=== PATIENT | female | born 1975 | race Caucasian/White ===

== ENCOUNTER 2021-05-23 15:44 | Outpatient (REF) | payer OTHER, SELFPAY ==
--- NOTE | ~2021-05-23 | XR_ITS ---
EXAMINATION: XR TIBIA AND FIBULA, RIGHT CLINICAL INFORMATION: Pain in right lower leg. COMPARISON: None. TECHNIQUE: AP and lateral views of the right tibia and fibula were obtained. FINDINGS: The bones and soft tissues are normal. No fracture. No osseous lesions. XR/XR tibia fibula RT 2V IMPRESSION: Normal right tibia and fibula.
== END 2021-05-23 15:45 | disposition home or self-care (01) ==
LOC: HO.XRAY 15:44
PROVIDERS: Absent Provider Internal Medicine Geriatric Medicine; PCP Internal Medicine Geriatric Medicine; Visit Provider Internal Medicine
DX: M79.661 Pain in right lower leg (principal)
CPT/HCPCS: 73590

== ENCOUNTER → 2021-12-26 13:28 | Outpatient (BNVA) | payer OTHER, SELFPAY | PROVIDERS: PCP Internal Medicine Geriatric Medicine; Visit Provider Nurse Practitioner Family | DX: M53.3 Sacrococcygeal disorders, not elsewhere classified (principal); M54.16 Radiculopathy, lumbar region; M62.830 Muscle spasm of back; M47.816 Spondylosis without myelopathy or radiculopathy, lumbar region; R29.898 Other symptoms and signs involving the musculoskeletal system; Q76.0 Spina bifida occulta; Z79.1 Long term (current) use of non-steroidal anti-inflammatories (NSAID) | CPT/HCPCS: 99212 ==

== ENCOUNTER 2022-01-11 19:25 | Outpatient (REF) | payer OTHER, SELFPAY ==
--- NOTE | ~2022-01-11 | MR_ITS ---
EXAMINATION: MR LUMBAR SPINE WITHOUT AND WITH CONTRAST CLINICAL INFORMATION: Spondylosis. Left lower extremity radiculopathy. Low back pain. Weakness. COMPARISON: None TECHNIQUE: MRI of the lumbar spine was obtained using routine sequences with and without contrast. Intravenous contrast: Gadavist 9 mL. FINDINGS: There are post laminectomy changes at the L4 through the L5 levels which may be due to prior untethering of the abnormal low-lying cord, as a thickened fatty filum is visible within the distal aspect of the thecal sac at the S2 level. 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 The cord is abnormally low-lying. There is a small syrinx measuring under 0.2 cm in transverse diameter which measures approximately 1 cm craniocaudal at the lower L1 level. 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 The conus tip terminates at the dorsal L4 level to the left of midline along the dorsal aspect of the thecal sac. The cauda equina nerve roots are unremarkable. There is no pathologic intradural enhancement on postcontrast imaging. No paraspinal soft tissue fluid collections are seen. The L1-L2, L2-L3, L3-L4, and L4-L5 discs are fairly well-hydrated. No focal disc protrusion or central canal stenosis is evident at these levels. There is a very mild retrosubluxation at the L4-L5 level. At the L5-S1 level, there is a grade 2 anterolisthesis with severe disc space narrowing and disc desiccation with chronic endplate changes. Unroofed bulging disc present without a focal protrusion. The foramina are widely patent. No central canal stenosis. MR/MR lumbar spine wo/w con IMPRESSION: Chronic postoperative changes which may be due to prior untethering of the cord due to a thickened fatty filum partially visualized at the lower sacral levels. Abnormal low-lying conus tip terminating along the dorsal margin of the thecal sac at the L4 level to the left of midline. 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 Small syrinx within the cord at the L1 level. Moderate chronic spondylosis and grade 2 anterolisthesis at the L5-S1 level without central canal stenosis or foraminal narrowing.
== END 2022-01-11 19:26 | disposition home or self-care (01) ==
LOC: HO.MRI 19:25
PROVIDERS: Visit Provider Nurse Practitioner Family
DX: M47.816 Spondylosis without myelopathy or radiculopathy, lumbar region (principal)
CPT/HCPCS: 72158; A9585

== ENCOUNTER → 2022-01-16 16:11 | Outpatient (BNVA) | payer OTHER, SELFPAY | PROVIDERS: PCP Internal Medicine Geriatric Medicine; Visit Provider Nurse Practitioner Family | DX: M47.816 Spondylosis without myelopathy or radiculopathy, lumbar region (principal); M62.830 Muscle spasm of back; M54.16 Radiculopathy, lumbar region | CPT/HCPCS: 99212 ==

== ENCOUNTER → 2022-02-10 11:33 | Outpatient (BNVA) | payer OTHER, SELFPAY | PROVIDERS: PCP Internal Medicine Geriatric Medicine; Visit Provider Nurse Practitioner Family | DX: M43.17 Spondylolisthesis, lumbosacral region (principal); Q76.0 Spina bifida occulta; Q06.8 Other specified congenital malformations of spinal cord; M54.16 Radiculopathy, lumbar region; R29.898 Other symptoms and signs involving the musculoskeletal system | CPT/HCPCS: Q3014 ==

== ENCOUNTER → 2022-02-28 09:00 | Outpatient (BNVA) | payer OTHER, SELFPAY | PROVIDERS: PCP Internal Medicine Geriatric Medicine; Visit Provider Nurse Practitioner Family | DX: Z13.89 Encounter for screening for other disorder (principal) | CPT/HCPCS: Q3014 ==

== ENCOUNTER 2022-03-02 10:14 | Outpatient (REF) | payer OTHER, SELFPAY ==
[2022-03-02 10:26] LABS: MANUAL DIFF FLAG NO
[2022-03-02 11:16] LABS: Basophils Absolute Auto 0.1 X10*3/uL (0.0-0.2); Basophils Percent Auto 0.7 % (0-2); Eosinophils Absolute Auto 0.2 X10*3/uL (0.0-0.4); Eosinophils Percent Auto 3.3 % (0-4); Hemoglobin 13.7 g/dl (12.0-16.0); Imm Gran Abs Auto 0.01 X10*3/uL (0.00-0.03); Imm Gran Pct Auto 0.1 % (0.0-0.4); Lymphocytes Absolute Auto 1.9 X10*3/uL (1.2-4.9); Mean Corpuscular HGB Conc 32.6 g/dl (31.0-35.0); Mean Corpuscular Hemoglobin 31.4 pg (27.0-33.0); Mean Corpuscular Volume 96.1 fL (80.0-98.0); Mean Platelet Volume 11.5 fL (9.4-12.3); Monocytes Absolute Auto 0.5 X10*3/uL (0.1-1.2); Monocytes Percent Auto 7.8 % (2-11); Neutrophils Percent Auto 59.1 % (45-73); Platelet Count 244 X10*3/uL (160-400); Red Blood Count 4.37 X10*6/uL (4.20-5.50); Red Cell Distribution Width 13.2 % (11.0-16.0); White Blood Count 6.7 X10*3/uL (4.8-10.8)
[2022-03-02 11:57] LABS: Alanine Aminotransferase 13 U/L (0-31); Albumin Level 3.9 g/dL (3.5-5.0); Alkaline Phosphatase 63 U/L (39-117); Anion Gap 13 (12-20); Aspartate Amino Transferase 15 U/L (5-31); Bilirubin Total 1.2 mg/dL (0.0-1.0); Blood Urea Nitrogen 14 mg/dL (9-16); Calcium 9.1 mg/dL (8.4-10.2); Carbon Dioxide 25 mmol/L (22-29); Chloride 106 mmol/L (96-108); Estimated Glomerular Filt Rate > 60; Glucose Random 83 mg/dL (60-115); Potassium 4.6 mmol/L (3.3-5.1); Sodium 139 mmol/L (135-145); Total Protein 6.7 g/dL (6.5-8.0)
== END 2022-03-02 10:15 | disposition home or self-care (01) ==
LOC: HO.LAB 10:14
PROVIDERS: PCP Internal Medicine Geriatric Medicine; Visit Provider Nurse Practitioner
DX: D36.9 Benign neoplasm, unspecified site (principal)
CPT/HCPCS: 36415; 80053; 85025; 99202; 99212

== ENCOUNTER → 2022-03-31 15:05 | Outpatient (BNVA) | payer OTHER, SELFPAY | PROVIDERS: PCP Internal Medicine Geriatric Medicine; Visit Provider Nurse Practitioner Family | DX: M43.17 Spondylolisthesis, lumbosacral region (principal); Q06.8 Other specified congenital malformations of spinal cord; M54.16 Radiculopathy, lumbar region; M47.816 Spondylosis without myelopathy or radiculopathy, lumbar region; Q76.0 Spina bifida occulta | CPT/HCPCS: 99212 ==

== ENCOUNTER 2022-12-14 07:44 | Day surgery (SDC) | payer OTHER, SELFPAY ==
[2022-12-08 12:04] VITALS: BMI 36.7
--- NOTE | 2022-12-13 08:37 | HO.ANESPROP2 ---
Documented by User: Tracy Choudhary NP 12/13/22 08:37 HPI - Anesthesia Eval Consult details Narrative: 47yo F for Colonoscopy PMFSH Active Problems Active Problems: All Active Problems (Updated 03/02/22 @ 10:54 by HERNANDEZ Roberto) Tubular adenoma (Acute) Spondylolisthesis of lumbosacral region (Acute) Tethered spinal cord (Acute) Preprocedural examination (Acute) NSAID long-term use (Acute) Weakness of left lower extremity (Acute) Spina bifida occulta (Acute) Sacroiliac joint dysfunction of left side (Acute) Lumbar radiculopathy (Acute) Back muscle spasm (Acute) Lumbar spondylosis (Acute) Past Medical History Medical History Chronic back pain Family history of colon cancer in father Neurogenic bladder disorder NSAID long-term use Obesity (BMI 30-39.9) Osteoarthritis of lumbar spine Spina bifida occulta Syncope Tubular adenoma Urinary incontinence Varicose vein of leg Venous insufficiency Surgical History Surgical History H/O colonoscopy History of section History of cholecystectomy History of tubal ligation Social History Social History Patient Tobacco Use Status: Never used Tobacco Are you DNR?: No Advance Directives: No Advance Directives Information Provided: Yes Recently lost weight without trying: No Nutrition Risks: No Nutritional Risk Patient : No Meds Allergies Allergy/AdvReac Type Severity Reaction Status Date / Time oxycodone [OXYCODONE] Allergy Severe CP/DIZZINES Verified 03/31/22 15:16 S/VOMITING Home Medications Medication Instructions Recorded Confirmed Last Taken Type cholecalciferol (vitamin D3) 50 50 mcg PO DAILY 12/26/21 12/11/22 History mcg (2,000 unit) tablet Exam Exam Date and Time: December 13, 2022 0837 Height,Weight and Vital Signs: Height 5 ft Weight 85.275 kg Assessment and Plan Assessment Anesthesia Assessment: Chart Reviewed Documented by User: Chrissy Grove MD 12/14/22 09:49 [facility] Past Medical History Medical History Chronic back pain Family history of colon cancer in father Neurogenic bladder disorder NSAID long-term use Obesity (BMI 30-39.9) Osteoarthritis of lumbar spine Spina bifida occulta Syncope Tubular adenoma Urinary incontinence Varicose vein of leg Venous insufficiency Family History Family history of problems with anesthesia: No Surgical History Surgical History H/O colonoscopy History of section History of cholecystectomy History of tubal ligation History of Problems with Anesthesia: No Social History Social History Patient Tobacco Use Status: Never used Tobacco Are you DNR?: No Advance Directives: No Advance Directives Information Provided: Yes Recently lost weight without trying: No Nutrition Risks: No Nutritional Risk Patient : No Meds Allergies Allergy/AdvReac Type Severity Reaction Status Date / Time oxycodone [OXYCODONE] Allergy Severe CP/DIZZINES Verified 03/31/22 15:16 S/VOMITING Home Medications Medication Instructions Recorded Confirmed Last Taken Type cholecalciferol (vitamin D3) 50 50 mcg PO DAILY 12/26/21 12/11/22 History mcg (2,000 unit) tablet Exam Airway Mallampati Class: II TM Dist: >3cm Neck ROM: Full Assessment and Plan Assessment Anesthesia Assessment: Anesthesia Plan Discussed Final Anesthetic Review Family History of Problems with Anesthesia: No History of Problems with Anesthesia: No NPO: Yes ASA Class: II Final Preanesthetic Review: No Changes in Pt Med Stat, Meds/Allgs Chart Reviewed, Consent Obtained/Reviewed and Anes Risks/Benef Reviewed Patient Risk: Low Procedure Risk: Low Anesthetic Plan Anesthetic Plan: MAC: Disposition: Standard PACU
[2022-12-14 07:58] VITALS: BP 133/81; PULSE 61; RESP 20; TEMP 36.6; O2SAT 100
--- NOTE | 2022-12-14 08:16 | MHC.SHP ---
Pre-Procedural Eval Section A Date of Service: 12/14/22 Section B Chief Complaint: Personal hx of polyps Details of Present Illness: Chronic back pain Family history of colon cancer in father Neurogenic bladder disorder NSAID long-term use Obesity (BMI 30-39.9) Osteoarthritis of lumbar spine Spina bifida occulta Syncope Tubular adenoma Urinary incontinence Varicose vein of leg Venous insufficiency Surgical History H/O colonoscopy History of section History of cholecystectomy History of tubal ligation Relevant Family History (Specify if Yes): No Relevant Social History: None Present Medications: see Short Stay Collaborative assessment Allergies: Allergies Allergy/AdvReac Type Severity Reaction Status Date / Time oxycodone [OXYCODONE] Allergy Severe CP/DIZZINES Verified 03/31/22 15:16 S/VOMITING acetaminophen [Percocet] Allergy Unknown Unknown Verified 03/31/22 15:16 Pt states no food allergies Allergy Unknown Unknown Uncoded 03/02/22 09:52 Review of Systems Review of Systems Comment: Ten point ROS negative Exam Exam Comment: Gen appear: No acute distress HEENT: no icterus Chest: No overt resp distress Abd: soft, nontender, nondistended Psych: Stable affect, answering questions appropriately Neuro: A/Ox3 noted to move all extremities spontaneously Ext: no peripheral edema Plan Diagnosis/Plan: Unchanged I have reviewed the history and physical and performed a pertinent physical examination on my patient. No changes have occurred unless specified. Time Spent With Patient Time: Total time managing care of this patient today ____ minutes.
[2022-12-14] MEDS: Lactated Ringers 1,000 ML 100 ML IVCONT (08:19)
--- NOTE | 2022-12-14 08:24 | P.OP_ITS ---
Operative Note Operative Note Date of Service: 12/14/22 Narrative: Procedure: Colonoscopy Indication: Personal history of polyps Endoscopist: Cassy Benz MD Anesthesia Provider: Dr Chrissy Grove Anesthesia type: MAC Instrument: Olympus [id number]-[id number] Consent: Indication, risks vs benefits, and alternatives were discussed with the patient who gave written informed consent to proceed. EKG, pulse, pulse oximetry and blood pressure were monitored throughout the procedure. Please see anesthesia flowsheet. Procedure: The patient was brought to the procedure room and placed in the left lateral decubitus position. IV medications were administered by the anesthesia provider in attendance. A digital rectal exam was performed which was normal. A distal attachment cap was affixed to the tip of the scope and the colonoscope was then inserted through the anus and advanced through the colon to the cecum at 75 cm,and terminal ileum. Ileocecal valve and appendiceal orifice were identified. Mucosa was carefully examined under high definition white light as the instrument was slowly withdrawn in a retrograde panoramic fashion. Retroflexion was performed in rectum. The procedure was not difficult. There were no immediate obvious complications. The quality of the prep was BBPS: 3+3+3 = excellent Withdrawal time 11 minutes. Limitations: No limitations. Findings: Mucosa: Normal to cecum and terminal ileum. Protruding lesions: * Medium internal hemorrhoids without stigmata of recent bleeding. Impression: 1. Normal colon and terminal ileum mucosa 2. Internal hemorrhoids Recommendations: - Repeat colonoscopy in 5 years due to hx of advanced adenoma (12 mm TA in 2019)
[2022-12-14 10:23] VITALS: BP 110/58; PULSE 70; RESP 16; TEMP 36.8; O2SAT 100
[2022-12-14 10:40] VITALS: BP 117/63; PULSE 60; RESP 18; TEMP 36.6; O2SAT 99
== END 2022-12-14 11:15 | disposition home or self-care (01) ==
PROVIDERS: PCP Internal Medicine Geriatric Medicine; Visit Provider Internal Medicine
PROC: 0DJD8ZZ Inspection of Lower Intestinal Tract, Via Natural or Artificial Opening Endoscopic (ICD-10-PCS; CPT 45378; principal; 2022-12-14 09:10)
DX: Z12.11 Encounter for screening for malignant neoplasm of colon (principal); Z86.010 Personal history of colon polyps; Z80.0 Family history of malignant neoplasm of digestive organs; K64.8 Other hemorrhoids; Q76.0 Spina bifida occulta; G89.29 Other chronic pain; M47.816 Spondylosis without myelopathy or radiculopathy, lumbar region; M54.16 Radiculopathy, lumbar region; N31.9 Neuromuscular dysfunction of bladder, unspecified; E66.9 Obesity, unspecified; Z68.36 Body mass index [BMI] 36.0-36.9, adult; Z79.1 Long term (current) use of non-steroidal anti-inflammatories (NSAID); Z79.899 Other long term (current) drug therapy; Z88.8 Allergy status to other drugs, medicaments and biological substances; Z90.49 Acquired absence of other specified parts of digestive tract; Z98.890 Other specified postprocedural states
CPT/HCPCS: G0105

== ENCOUNTER → 2022-12-28 09:56 | Outpatient (BNVA) | payer OTHER, SELFPAY | PROVIDERS: PCP Internal Medicine Geriatric Medicine; Visit Provider Nurse Practitioner | DX: D36.9 Benign neoplasm, unspecified site (principal) | CPT/HCPCS: 99212 ==

== ENCOUNTER 2023-05-23 13:17 | Outpatient (REF) | payer OTHER, SELFPAY ==
--- NOTE | ~2023-05-23 | XR_ITS ---
EXAMINATION: XR FOOT, RIGHT XR FOOT, LEFT CLINICAL INFORMATION: Bilateral heel pain COMPARISON: None available. TECHNIQUE: 3 views of each foot FINDINGS: RIGHT: No acute visible fracture or dislocation. Mild multi joint arthritic changes. Very slight enthesopathy at the Achilles tendon insertion site. Joint spaces and alignment are otherwise maintained. Soft tissues are unremarkable. LEFT: No acute visible fracture or dislocation. Mild multi joint arthritic changes. Very slight enthesopathy at the Achilles tendon insertion site. Joint spaces and alignment are otherwise maintained. Soft tissues are unremarkable. XR/XR foot RT min 3V IMPRESSION: 1. No acute visible fracture or dislocation. 2. Mild bilateral multi joint arthritic changes. 3. Very slight enthesopathy at the Achilles tendon insertion site bilaterally.
--- NOTE | ~2023-05-23 | XR_ITS ---
EXAMINATION: XR FOOT, RIGHT XR FOOT, LEFT CLINICAL INFORMATION: Bilateral heel pain COMPARISON: None available. TECHNIQUE: 3 views of each foot FINDINGS: RIGHT: No acute visible fracture or dislocation. Mild multi joint arthritic changes. Very slight enthesopathy at the Achilles tendon insertion site. Joint spaces and alignment are otherwise maintained. Soft tissues are unremarkable. LEFT: No acute visible fracture or dislocation. Mild multi joint arthritic changes. Very slight enthesopathy at the Achilles tendon insertion site. Joint spaces and alignment are otherwise maintained. Soft tissues are unremarkable. XR/XR foot LT min 3V IMPRESSION: 1. No acute visible fracture or dislocation. 2. Mild bilateral multi joint arthritic changes. 3. Very slight enthesopathy at the Achilles tendon insertion site bilaterally.
== END 2023-05-23 13:18 | disposition home or self-care (01) ==
LOC: HO.HHCX 13:17
PROVIDERS: Visit Provider Internal Medicine
DX: M79.671 Pain in right foot (principal); M79.672 Pain in left foot
CPT/HCPCS: 73630

== ENCOUNTER 2023-07-06 12:17 | Outpatient (REF) | payer OTHER, SELFPAY ==
[2023-07-06 13:12] LABS: MANUAL DIFF FLAG NO
[2023-07-06 13:20] LABS: Basophils Absolute Auto 0.1 X10*3/uL (0.0-0.2); Basophils Percent Auto 0.8 % (0-2); Eosinophils Absolute Auto 0.2 X10*3/uL (0.0-0.4); Eosinophils Percent Auto 3.5 % (0-4); Hematocrit 43.6 % (37.0-47.0); Hemoglobin 14.4 g/dl (12.0-16.0); Imm Gran Abs Auto 0.01 X10*3/uL (0.00-0.03); Imm Gran Pct Auto 0.2 % (0.0-0.4); Lymphocytes Absolute Auto 1.8 X10*3/uL (1.2-4.9); Lymphocytes Percent Auto 28.1 % (20-40); Mean Corpuscular Hemoglobin 31.7 pg (27.0-33.0); Mean Platelet Volume 11.3 fL (9.4-12.3); Monocytes Absolute Auto 0.6 X10*3/uL (0.1-1.2); Neutrophils Absolute Auto 3.6 x10*3/uL (2.0-8.3); Neutrophils Percent Auto 57.4 % (45-73); Platelet Count 243 X10*3/uL (160-400); Red Blood Count 4.54 X10*6/uL (4.20-5.50); Red Cell Distribution Width 13.5 % (11.0-16.0); White Blood Count 6.3 X10*3/uL (4.8-10.8)
[2023-07-06 14:43] LABS: Anion Gap 12 (12-20); Blood Urea Nitrogen 18 mg/dL (9-16); Calcium 9.7 mg/dL (8.4-10.2); Carbon Dioxide 27 mmol/L (22-29); Chloride 107 mmol/L (96-108); Estimated Glomerular Filt Rate > 60; Glucose Random 85 mg/dL (60-115); Potassium 4.2 mmol/L (3.3-5.1); Sodium 142 mmol/L (135-145)
== END 2023-07-06 12:18 | disposition home or self-care (01) ==
LOC: HO.HHCL 12:17
PROVIDERS: Visit Provider Internal Medicine Geriatric Medicine
DX: Z13.89 Encounter for screening for other disorder (principal); Z79.1 Long term (current) use of non-steroidal anti-inflammatories (NSAID)
CPT/HCPCS: 36415; 80048; 85025

== ENCOUNTER 2023-10-04 13:00 | Outpatient (RCR) | payer OTHER, SELFPAY | END 2023-10-08 09:33 | disposition home or self-care (01) | LOC: HO.PT 13:00 | PROVIDERS: PCP Internal Medicine Geriatric Medicine; Visit Provider Internal Medicine | DX: M79.671 Pain in right foot (principal); M79.672 Pain in left foot | CPT/HCPCS: 97033; 97110; 97116; 97140; 97162; 97530 ==

== ENCOUNTER 2023-12-24 12:31 | Outpatient (REF) | payer OTHER, SELFPAY ==
[2023-12-24 13:18] LABS: MANUAL DIFF FLAG NO
[2023-12-24 13:33] LABS: Basophils Absolute Auto 0.1 X10*3/uL (0.0-0.2); Basophils Percent Auto 0.4 % (0-2); Eosinophils Absolute Auto 0.1 X10*3/uL (0.0-0.4); Hematocrit 43.7 % (37.0-47.0); Hemoglobin 14.5 g/dl (12.0-16.0); Imm Gran Abs Auto 0.04 X10*3/uL (0.00-0.03); Imm Gran Pct Auto 0.4 % (0.0-0.4); Lymphocytes Absolute Auto 2.5 X10*3/uL (1.2-4.9); Lymphocytes Percent Auto 22.2 % (20-40); Mean Corpuscular HGB Conc 33.2 g/dl (31.0-35.0); Mean Corpuscular Hemoglobin 31.3 pg (27.0-33.0); Mean Corpuscular Volume 94.2 fL (80.0-98.0); Mean Platelet Volume 11.6 fL (9.4-12.3); Monocytes Absolute Auto 1.1 X10*3/uL (0.1-1.2); Monocytes Percent Auto 9.9 % (2-11); Neutrophils Absolute Auto 7.5 x10*3/uL (2.0-8.3); Neutrophils Percent Auto 66.1 % (45-73); Platelet Count 250 X10*3/uL (160-400); Red Blood Count 4.64 X10*6/uL (4.20-5.50); Red Cell Distribution Width 13.2 % (11.0-16.0); White Blood Count 11.3 X10*3/uL (4.8-10.8)
[2023-12-24 18:05] LABS: Appearance Urine Clear; Color Urine Yellow; Glucose Urine UA Negative (Negative); Leukocyte Esterase Urine Negative (Negative); Nitrite Urine Negative (Negative); Urine Blood Negative (Negative); Urine Ketones Negative (Negative); Urine Protein Negative (Neg-Trace)
[2023-12-24 18:07] LABS: Bacteria Urine None Seen (None Seen); Hyaline Casts Urine 0-2 /LPF (0-2); RBC Urine 0-2 /HPF (0-2); WBC Urine 0-5 /HPF (0-5)
== END 2023-12-24 12:32 | disposition home or self-care (01) ==
LOC: HO.HHCL 12:31
PROVIDERS: Visit Provider Internal Medicine Geriatric Medicine
DX: R10.30 Lower abdominal pain, unspecified (principal); R30.0 Dysuria; N31.9 Neuromuscular dysfunction of bladder, unspecified
CPT/HCPCS: 36415; 81001; 85025

== ENCOUNTER 2024-02-22 14:11 | Outpatient (REF) | payer OTHER, SELFPAY ==
--- NOTE | ~2024-02-22 | XR_ITS ---
EXAMINATION: XR LUMBOSACRAL SPINE CLINICAL INFORMATION: Acute right-sided low back pain COMPARISON: MRI from 01/11/2022 TECHNIQUE: AP and lateral views of lumbar spine FINDINGS: Patient status post L4-L5 laminectomy. There is narrowing of L4-L5 intervertebral disc space and there is fusion of L5-S1 and grade 2 anterior listhesis of L5 over S1. XR/XR lumbar spine 2-3V IMPRESSION: Postsurgical changes with grade 2 anterolisthesis of L5 over S1.
--- NOTE | ~2024-02-22 | XR_ITS ---
EXAMINATION: XR ABDOMEN KUB CLINICAL INDICATION: Rule out renal stones COMPARISON: None available. TECHNIQUE: AP view of the abdomen. FINDINGS: The bowel gas pattern is normal with no evidence of ileus or obstruction. No unusual soft tissue calcifications are noted. The bones are unremarkable. XR/XR KUB IMPRESSION: Unremarkable examination.
== END 2024-02-22 14:12 | disposition home or self-care (01) ==
LOC: HO.HHCX 14:11
PROVIDERS: Visit Provider Internal Medicine
DX: R10.9 Unspecified abdominal pain (principal); M54.50 Low back pain, unspecified
CPT/HCPCS: 72100; 74018; 87086

== ENCOUNTER 2024-09-09 12:08 | Outpatient (REF) | payer OTHER, SELFPAY ==
--- OUTSIDE RECORDS SUMMARY | 2024-09-09 12:10 | XMS_ITS ---
Author Organization [facility], Address [address] [place] [address] Care Team Providers Care Captain Cannery Tender Name Role Phone Roopa Barron Unavailable [phone] ALLERGIES, ADVERSE REACTIONS, ALERTS Substance Code Code System Type Reaction Severity Status Start Date End Date Percocet 352951 RxNorm Drug allergy () 1 Percocet 39218 RxNorm Drug allergy () 0 MEDICATIONS Medication Code Code System Start Date Stop Date Route Dosage Directions Fill Instructions gabapentin RxNorm 09/30/2021 meloxicam RxNorm 07/06/2023 PROBLEMS Problem Name Code Code System Start Date End Date Stat us Pain, unspecified (R52) 87950672 [facility] 08/23/2022 Inactive COVID-19, confirmed by labor atory testing (U07.1) 420363706 [facility] 09/30/2021 Inactive Cough, unspecified (R05.9) [facility] 10/04/2021 Inactive COVID-19, Screening Encounter [id number] [facility] 08/23/2022 Resolved Viral infection, unspecified 05492212 [facility] 08/23/2022 Resolved Other specified arthritis, unspecified site 7588925 [facility] Active Low back pain, unspecified 350771909 [facility] 02/20/2024 Active ENCOUNTERS Encounter Diagnosis Code Code System Date Stat us Low back pain, unspecified 691810604 [facility] 02/20/2024 Active IMMUNIZATIONS * None VITAL SIGNS Code Code System Vitals Name Date Value and Un its 8462-4 [facility] Blood Pressure-Diastolic 02/20/2024 75 mmHg 8480-6 [facility] Blood Pressure-Systolic 02/20/2024 1 17 mmHg 8867-4 [facility] Heart Rate 02/20/2024 76 /min 9279-1 [facility] Respiratory Rate 02/20/2024 16 /min 8310-5 [facility] Body Temperature 02/20/2024 98.3 F 24839-2 [facility] Oxygen Saturation 02/20/2024 96 % SOCIAL HISTORY * None PROCEDURES * None RESULTS Test Code Code System Description Result Value Date Ref erence Range [facility] Glucose Negative 02/20/2024 [facility] Bilirubin Negative 02/20/2024 [facility] Ketone Negative 02/20/2024 [facility] Specific [place] 1.32563 02/20/2024 [facility] Blood Negative 02/20/2024 [facility] pH 7.28393 02/20/2024 [facility] Protein Negative 02/20/2024 [facility] Urobilinogen 0.33009 E.U./dL 02/20/2024 [facility] Nitrite Negative 02/20/2024 [facility] Leukocytes Negative 02/20/2024 [facility] Color Dark yellow 02/20/2024 [facility] Clarity Clear 02/20/2024 [facility] hCG Negative 02/20/2024 MEDICAL EQUIPMENT * Patient has no history of implantable devices ASSESSMENT * None TREATMENT PLAN Type Description Date ORDERS Since your usual med ications (Motrin, gabapentin and meloxicam) which usually help your left-sided low back pain are not helping it seems your current right low back pain which radiates to your right lower abdomen is likely due to another source other than your back. We should consider possibly a kidney stone, a pelvic issue or something related to the kidney problem you mentioned. If your symptoms are no better in 2 to 3 days you should follow-up with your primary care for further evaluation. If your symptoms get worse in the next 24 to 48 hours you should go to the emergency department for further evaluation 02/20/2024 APPOINTMENT If not feeling brian r in 3 day(s), please see your primary care physician. If you do not have a primary care physician, please return to this clinic. 02/20/2024 Labs Tests Test Name Code Code System Date [facility] Urinalysis, automated, without microscopy [address] [facility] 02/20/2024 [facility] hCG Chemistry Test, Qualitative [address] [facility] 02/20/2024 GOALS * None HEALTH CONCERNS * No Health Concerns FUNCTIONAL AND COGNITIVE STATUS * None CONSULTATION NOTES * None DISCHARGE SUMMARY NOTES * None HISTORY AND PHYSICAL NOTES * Reason for visit - Illness IMAGING NOTES * None LABORATORY REPORT NARRATIVE NOTES * None PATHOLOGY REPORT NARRATIVE NOTES * None PROGRESS NOTES * None
[2024-09-09 13:16] LABS: MANUAL DIFF FLAG NO
[2024-09-09 13:22] LABS: Basophils Absolute Auto 0.1 X10*3/uL (0.0-0.2); Basophils Percent Auto 0.9 % (0-2); Eosinophils Absolute Auto 0.2 X10*3/uL (0.0-0.4); Eosinophils Percent Auto 4.1 % (0-4); Hematocrit 41.8 % (37.0-47.0); Hemoglobin 13.6 g/dl (12.0-16.0); Imm Gran Abs Auto 0.02 X10*3/uL (0.00-0.03); Imm Gran Pct Auto 0.4 % (0.0-0.4); Lymphocytes Absolute Auto 1.5 X10*3/uL (1.2-4.9); Lymphocytes Percent Auto 27.5 % (20-40); Mean Corpuscular HGB Conc 32.5 g/dl (31.0-35.0); Mean Corpuscular Hemoglobin 31.3 pg (27.0-33.0); Mean Corpuscular Volume 96.1 fL (80.0-98.0); Mean Platelet Volume 11.3 fL (9.4-12.3); Monocytes Absolute Auto 0.5 X10*3/uL (0.1-1.2); Monocytes Percent Auto 9.7 % (2-11); Neutrophils Absolute Auto 3.1 x10*3/uL (2.0-8.3); Neutrophils Percent Auto 57.4 % (45-73); Platelet Count 265 X10*3/uL (160-400); Red Blood Count 4.35 X10*6/uL (4.20-5.50); White Blood Count 5.3 X10*3/uL (4.8-10.8)
[2024-09-09 13:35] LABS: Anion Gap 9 (12-20); Blood Urea Nitrogen 15 mg/dL (9-16); Calcium 9.2 mg/dL (8.4-10.2); Carbon Dioxide 28 mmol/L (22-29); Chloride 106 mmol/L (96-108); Estimated Glomerular Filt Rate > 60; Glucose Random 90 mg/dL (60-115); Potassium 4.1 mmol/L (3.3-5.1); Sodium 139 mmol/L (135-145)
== END 2024-09-09 12:09 | disposition home or self-care (01) ==
LOC: HO.HHCL 12:08
PROVIDERS: Visit Provider Internal Medicine Geriatric Medicine
DX: Z79.899 Other long term (current) drug therapy (principal)
CPT/HCPCS: 36415; 80048; 85025

== ENCOUNTER 2025-01-06 08:41 | Outpatient (REF) | payer OTHER, SELFPAY ==
--- OUTSIDE RECORDS SUMMARY | 2025-01-06 09:04 | XMS_ITS | Encounter Summary ---
Author Organization [employer] Address [address] [place] [address] Care Team Providers Care [employer] Warrant Officer Name Role Phone Name, Dale SHELBY Primary Care Provider [phone] Reason for Visit * Reason Comments Med Refill Encounter Details Date Type Department Care Team ([facility] st Contact Info) Description 01/22/[address] [facility] [address] [place], [place] [phone] [facility] [address] [place], [place] [phone] Impacted cerumen of right ear Social History Tobacco Use Types Packs/Day Years Used Date Smoking Tobacco: Never Smokeless Tobacco: Never Alcohol Use Standard Drinks/Week Comments Yes 0 (1 standard drink = 0.6 oz pur e alcohol) Social Drinking Depression Answer Date Recorded Patient Health Questionnaire-9 Score 0 12/24/2023 Patient Health Questionnaire-9 Score 0 12/24/2023 Last PHQ-9: Questionnaire Data Not on file 0 12/24/2023 Housing Stability Answer Date Recorded What is your housing situation today? I have ca ambriz 12/24/[address] you li ve. Do you have problems with any of the following? None of the above 12/24/2023 Food Insecurity Answer Date Recorded Within the past 12 months, y ou worried that your food would run out before you got money to buy more: Never True 12/24/2023 Within the past 12 months,th e food you bought just didn't last and you didn't have enough money to get more: Never True 09/2023 Transportation Answer Date Recorded In the past 12 months, has l ack of transportation kept you from medical appts, meetings, work or from getting things needed for daily living? No 12/24/2023 Utilities Answer Date Recorded In the past 12 months, has t he electric, gas, oil or water company threatened to shut off services in your home? No 12/24/2023 Depression Answer Date Recorded Patient Health Questionnaire-2 Score 0 12/24/2023 Comments Unknown Sex and Gender Information Value Date Recorded Sex Assigned at Female 07/24/2022 10:29 AM EDT Legal Sex Female 10:29 AM EDT Gender Identity Female 07/24/2022 10:29 AM EDT Sexual Orientation Straight 07/24/2022 10 :29 AM EDT documented as of this encounter Plan of Treatment Not on file documented as of this encounter Visit Diagnoses Diagnosis Impacted cerumen of right ear Impacted cerumen documented in this encounter Additional Health Concerns Assessment Noted Time PHQ-9 Depression Total Score: 0 12/24/19 24 11:24 AM EDT documented as of this encounter Care Teams Special [employer] Warrant Officer Relationship Specialty Start Date End Date Name, MD Dale [address] [place] [address] PCP - General Family Medicine 09/24/18 documented as of this encounter
--- OUTSIDE RECORDS SUMMARY | 2025-01-06 09:04 | XMS_ITS | Encounter Summary ---
Author Organization [employer] Address [address] [facility] [address] [place] [address] Care Team Providers Care Glazier Supervisor Name Role Phone Name, Dale SHELBY Primary Care Provider [phone] Reason for Visit * Reason Onset Date Comments chartprep 01/01/2025 Encounter Details Date Type Department Care Team ([facility] st Contact Info) Description 01/01/2025 Telephone [facility] [address] [place], [place] [phone] Thea Cutler MA chartprep Social History Tobacco Use Types Packs/Day Years Used Date Smoking Tobacco: Never Passive Smoke Exposure: Never Smokeless Tobacco: Never Alcohol Use Standard Drinks/Week Comments Yes 0 (1 standard drink = 0.6 oz pur e alcohol) Social Drinking Alcohol Answer Date Recorded Frequency of Alcohol Consumption Not on file 04/04/2024 Average Number of Drinks Not on file 024 Frequency of Binge Drinking Not on file 03/24 Score 0 04/04/2024 Depression Answer Date Recorded Patient Health Questionnaire-9 [...] AM EDT documented as of this encounter Miscellaneous Notes * Telephone Encounter - Thea Cutler MA - 01/01/2025 1:14 PM EDT Chart Prep Labs: done Images: done Referrals: complete Vaccines due: yes Screenings: mammogram Overdue care gaps: SDOH, PHQ-9, TANIA-7, Oral health screening, and Disability screen documented in this encounter Plan of Treatment Not on file documented as of this encounter Visit Diagnoses Not on filedocumented in this encounter Additional Health Concerns Assessment Noted Time PHQ-9 Depression Total Score: 0 12/24/19 24 11:24 AM EDT documented as of this encounter Care Teams Glazier Supervisor Relationship Specialty Start Date End Date Name, MD Dale [address] [place] [address] PCP - General Family Medicine 09/24/18 documented as of this encounter
--- OUTSIDE RECORDS SUMMARY | 2025-01-06 09:04 | XMS_ITS | Encounter Summary ---
Author Organization [employer] [facility] Address [address] [place] [address] 7 [place] [address] Care Team Providers Care Chief Information Officer Name Role Phone Dale Batres MD Primary Care Provider [phone] Reason for Referral * Consultation (Routine) - Authorized Specialty Diagnoses / Procedures Referred By Jono bullock Referred To Contact Pain Medicine Diagnoses Chronic pain syndrome Spina bifida occulta Dale Batres MD [address] [place] [address] Phone: tel: fax: [address] Phone: tel: fax: Referral ID Status Reason Start Date Expiration Date Visits Requested Visits Authorized [id number] Authorized Specialty Services Required 01/05/2025 01/05/2026 1 1 Reason for Visit * Reason Comments Follow-up Encounter Details Date Type Department Care Team (Late st Contact Info) Description 01/05/2025 11:30 AM EDT Office Visit [facility] [address] [place] [address] [phone] Dale Batres MD [address] [place] [phone] Spina bifida occulta (Primary Dx); Chronic pain syndrome; Encounter for immunization; Vitamin D deficiency; Screening for cholesterol level Social History Tobacco Use Types Packs/Day Years Used Date Smoking Tobacco: Never Passive Smoke Exposure: Never Smokeless Tobacco: Never Tobacco Cessation:Counseling Given: Not Answered Alcohol Use Standard Drinks/Week Comments Yes 0 (1 standard drink = 0.6 oz pur e alcohol) Social Drinking Alcohol Answer Date Recorded Frequency of Alcohol Consumption Not on file 04/04/2024 Average Number of Drinks Not on file Frequency of Binge Drinking Not on file [...] AM EDT documented as of this encounter Last Filed Vital Signs Vital Sign Reading Time Taken Comments Blood Pressure 115/69 01/05/2025 11:36 AM EDT Pulse 67 01/05/2025 11:36 AM EDT Temperature 36.2 ??C (97.1 ??F) 01/05/2025 11:36 AM E DT Respiratory Rate 21 01/05/2025 11:36 AM EDT Oxygen Saturation 98% 01/05/2025 11:36 AM EDT Inhaled Oxygen Concentration - - Weight 88.2 kg (194 lb 6.4 oz) 01/05/2025 11:36 AM EDT Height 152.4 cm (5') 01/05/2025 11:36 AM EDT Body Mass Index 37.97 01/05/2025 11:36 AM EDT documented in this encounter Progress Notes * Dale Batres, - 01/05/2025 11:30 AM EDT Subjective Patient ID: Esperanza Monique is a 49 y.o. female who presents for Follow-up. Patient comes for a follow-up visit. She has a personal history of spina bifida occulta. She complains of chronic low back pain with radiation to the legs, gluteal areas. She has other conditions related to spina bifida occulta including neurogenic bladder, left leg weakness. She uses NSAIDs with some improvement. I refilled the meloxicam and recommended to continue PPI for prophylaxis of GI sideeffects. I asked her to avoid OTC NSAIDs. I also suggested referral to [facility] pain clinic for evaluation and further treatment recommendations. In terms of health maintenance she is up-to-date with her mammograms that she is doing at [facility]. She is due for PCV 20. She agreed to check fasting lipids. She asked me to recheck her vitamin D levels. She tells me she had low vitamin D levels in the past. Review of Systems Constitutional: Negative for chills and fever. HENT: Negative for sore throat. Respiratory: Negative for cough, shortness of breath and wheezing. Cardiovascular: Negative for chest pain, palpitations and leg swelling. Gastrointestinal: Negative for abdominal pain. Visit Vitals BP 115/69 (BP Location: Left arm, Patient Position: Sitting, BP Cuff Size: Large adult) Pulse 67 Temp 97.1 ??F (36.2 ??C) (Temporal) Resp 21 Ht 5' (1.524 m) Wt 194 lb 6.4 oz (88.2 kg) SpO2 98% BMI 37.97 kg/m?? Smoking Status Never BSA 1.93 m?? Objective Physical Exam Constitutional: Appearance: Normal appearance. Cardiovascular: Rate and Rhythm: Normal rate and regular rhythm. Heart sounds: No murmur heard. No gallop. Pulmonary: Effort: Pulmonary effort is normal. No respiratory distress. Breath sounds: Normal breath sounds. No wheezing. Musculoskeletal: Right lower leg: No edema. Left lower leg: No edema. Neurological: Mental Status: She is alert. Assessment/Plan Diagnoses and all orders for this visit: Spina bifida occulta Comments: Continue Meloxicam, continue PPI for prophylaxis of GI side effects., check CBC and BMP. Mild left leg weakness is unchanged. Referral to [facility] pain clinic. Orders: - Referral to Pain Medicine; Future - meloxicam (Mobic) 15 MG tablet; TAKE 1 TABLET(15 MG) BY MOUTH IN THE MORNING Chronic pain syndrome - Referral to Pain Medicine; Future - Basic Metabolic Panel; Future - CBC auto differential; Future Encounter for immunization - PCV-20 VACCINE 6 wks + Vitamin D deficiency - Vitamin D, 25-Hydroxy, Total, Immunoassay; Future Screening for cholesterol level - Lipid Panel, Standard; Future Other orders - omeprazole (PriLOSEC) [address] capsule; Take 1 capsule (20 mg) by mouth before breakfast. Do not crush or chew. - cholecalciferol (Vitamin D-3) 25 MCG (1000 UT) tablet; Take 1 tablet (25 mcg) by mouth Once per day. documented in this encounter Plan of Treatment Scheduled Orders Name Type Priority Associated Diagnoses Orde r Schedule Basic Metabolic Panel Lab Routine Chronic pain syndrome Expected: 01/05/2025 (Approximate), Expires: 01/05/2026 Vitamin D, 25-Hydroxy, Total, Immunoassay Lab Routine Vitamin D deficiency Expected: 01/05/2025 (Approximate), Expires: 01/05/2026 CBC auto differential Lab Routine Chronic pain syndrome Expected: 01/05/2025 (Approximate), Expires: 01/05/2026 Lipid Panel, Standard Lab Routine Screening for cholesterol level Expected: 01/05/2025 (Approximate), Expires: 01/05/2026 Scheduled Referrals Name Type Priority Associated Diagnoses Orde r Schedule Referral to Pain Medicine Outpatient Referral Routine Chronic pain syndrome Spina bifida occulta Expected: 01/05/2025 (Approximate), Expires: 01/05/2026 documented as of this encounter Visit Diagnoses Diagnosis Spina bifida occulta- Primary Chronic pain syndrome Encounter for immunization Vitamin D deficiency Screening for cholesterol level documented in this encounter Additional Health Concerns Assessment Noted Time PHQ-9 Depression Total Score: 0 12/24/19 24 11:24 AM EDT documented as of this encounter Care Teams Chief Information Officer Relationship Specialty Start Date End Date Name, MD Dale [address] [place] [phone] PCP - General Family Medicine 09/24/18 documented as of this encounter
--- OUTSIDE RECORDS SUMMARY | 2025-01-06 09:04 | XMS_ITS | Encounter Summary ---
Author Organization [employer] Address [address] [facility] 7t [place] [address] Care Team Providers Care Ditch Repairer Name Role Phone Name, Dale SHELBY Primary Care Provider [phone] Encounter Details Date Type Department Care Team (Latest Contact Info) Description 01/05/2025 Travel Social History Tobacco Use Types Packs/Day Years [...] documented as of this encounter Care Teams Ditch Repairer Relationship Specialty Start Date End Date Name, MD Dale [address] [place] [address] PCP - General Family Medicine 09/24/18 documented as of this encounter
--- OUTSIDE RECORDS SUMMARY | 2025-01-06 09:04 | XMS_ITS | Encounter Summary ---
Author Organization [employer] Address [address] [facility] 7 [place] [address] Care Team Providers Care Sealing Machine Operator Name Role Phone Name, Dale SHELBY Primary Care Provider [phone] Reason for Visit * Reason Onset Date Comments Results 12/25/2023 Encounter Details Date Type Department Care Team (Late st Contact Info) Description 12/25/2023 Telephone [facility] [address] [place], [place] [phone] Name, MD Dale [address] [place], [place] [phone] Results Social History Tobacco Use Types Packs/Day Years [...] encounter Miscellaneous Notes * Telephone Encounter - Mathieu Otero RN - 12/25/2023 3:22 PM EDT Noted, Thanks. * Telephone Encounter - Trini Romero - 12/25/2023 2:12 PM EDT Tc from pt requesting ac all back in regards lab results. documented in this encounter Plan of Treatment Not on file documented as of this encounter Visit Diagnoses Not on filedocumented in this encounter Additional Health Concerns Assessment Noted Time PHQ-9 Depression Total Score: 0 12/24/19 24 11:24 AM EDT documented as of this encounter Care Teams Sealing Machine Operator Relationship Specialty Start Date End Date Name, MD Dale [address] [place] [address] PCP - General Family Medicine 09/24/18 documented as of this encounter
--- OUTSIDE RECORDS SUMMARY | 2025-01-06 09:05 | XMS_ITS | Clinical Summary ---
Author Organization [employer] Address [address] [facility] 7t [place] [address] Care Team Providers Care Crown Assembly Machine Set Up Mechanic Name Role Phone Name, Dale SHELBY Primary Care Provider [phone] Allergies Active Allergy Reactions Criticality Noted Date Comments Acetaminophen 02/25/2016 Oxycodone 02/25/2016 Other reaction(s): nausea, rashes, vomiting Oxycodone-Acetaminophen Dizziness,Nausea And Vomiting 09/30/2015 Other reaction(s): Not Indicated, Vomiting Numbness L arm Desoxycorticosterone 02/22/2024 Medications thiamine (Vitamin B-1) 100 MG tablet Take 100 mg by mouth in the morning. 12/23/19 17 Active ceramides (CeraVe) moisturizing creamIndication s:Seborrheic dermatitis Apply 1 application topically if needed for dry skin. 453 g 11/20/19 23 Active ketoconazole (Nizoral) 2 % shampoo Apply topically 2 (two) times a week. 100 mL 1 02/06/20 23 Active tiZANidine (Zanaflex) 4 MG tablet Take 1 tablet (4 mg) by mouth every 8 (eight) hours if needed for muscle spasms. 84 tablet 3 07/06/20 23 Active gabapentin (Neurontin) 100 MG capsule Take 1 capsule (100 mg) by mouth every 8 (eight) hours. 90 capsule 11 01/22/20 24 2024 Active Diclofenac Sodium 1 % gel Apply thin layer by topical route (quantity as directed on package insert) to affected area of pain 3 times daily as needed. 50 g 3 04/04/20 24 Active meloxicam (Mobic) 15 MG tabletIndicatio ns:Spina bifida occulta TAKE 1 TABLET(15 MG) BY MOUTH IN THE MORNING 30 tablet 2 01/06/20 25 Active omeprazole (PriLOSEC) [address] capsule Take 1 capsule (20 mg) by mouth before breakfast. Do not crush or chew. 30 capsule 11 01/06/20 25 2025 Active cholecalciferol (Vitamin D-3) 25 MCG (1000 UT) tabletIndicatio ns:Vitamin D Deficiency Take 1 tablet (25 mcg) by mouth Once per day. 90 tablet 3 01/06/20 25 2025 Active cholecalciferol (Vitamin D-3) 25 MCG (1000 UT) capsule Take 1,000 Units by mouth in the morning. 12/16/19 17 2024 Discontinued(D uplicate order (will not trigger notification to Pharmacy)) ibuprofen 800 MG tablet TAKE 1 TABLET BY MOUTH THREE TIMES DAILY WITH FOOD 90 tablet 01/23/20 24 2024 Discontinued(I neffective) omeprazole (PriLOSEC) [address] capsule TAKE 1 CAPSULE BY MOUTH ONCE DAILY BEFORE BREAKFAST; DO NOT CRUSH, CHEW OR SPLIT. 30 capsule 11 06/02/20 24 2024 Discontinued(R eorder (will not trigger notification to Pharmacy)) meloxicam (Mobic) 15 MG tabletIndicatio ns:Spina bifida occulta TAKE 1 TABLET(15 MG) BY MOUTH IN THE MORNING 30 tablet 08/18/20 24 2024 Discontinued(R eorder (will not trigger notification to Pharmacy)) Active Problems Problem Noted Date Diagnosed Date Varicose vein of leg 04/04/2024 Right flank pain 02/22/2024 Assessment & Plan (02/22/2024 2:19 PM EDT): Drink plenty of water KUB ordered to r/o kidney stone UA and culture Heel pain, bilateral 05/23/2023 Assessment & Plan (05/23/2023 12:53 PM EDT): May have Achilles tendinosis vs calcaneal bursitis. Counseled to use heel pads and appropriate shoe wear specially when exercising Warm soaks with Epson salt to affected areas Use diclofenac gel bid to affected area and refer to PT If no improvement with PT, will be seen by Dr Oro [facility]. Cervical atypism 05/22/2023 Radicular syndrome of lower limbs 05/22/2023 Family history of colon cancer 11/07/2022 Acute pharyngitis, unspecified 08/28/2022 1 Cough, unspecified 08/28/2022 07/06/2023 Viral infection, unspecified 08/23/2022 Atypical squamous cell wick es of undetermined significance (ASCUS) on cervical cytology with positive high risk human papilloma virus (HPV) 03/19/2019 Overview (09/08/2024): 05/09/2019 neg colpo Tubular adenoma 01/16/2019 Syncope 08/01/2017 Neurogenic bladder 12/25/2016 Peripheral venous insufficiency 12/25/2016 Varicose veins of lower extremity 07/27/2016 Class 2 obesity 07/27/2016 Left leg weakness 11/24/2015 Lumbar spondylosis 11/24/2015 Chronic cystitis 08/30/2015 07/06/2023 Overview (09/08/2024): Per Dr. 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 Urge incontinence 01/20/2013 Resolved Problems Problem Noted Date Diagnosed Date Resolved Date Acute right-sided low back p ain without sciatica 02/22/2024 01/05/2025 Assessment & Plan (02/22/2024 2:20 PM EDT): XRAY ordered C/w tizinadine and meloxicam Pain in right hoskins 05/22/2023 Contact with and (suspected) exposure to covid-19 08/28/2022 07/06/2023 07/06/2023 Urinary tract infection 02/23/2017 07/06/202303/24 Encounters Date Type Department Care Team Description 01/05/2025 11:30 AM EDT Office Visit [facility] [address] [place] [address] Name, MD Dale Spina bifida occulta (Primary Dx); Chronic pain syndrome; Encounter for immunization; Vitamin D deficiency; Screening for cholesterol level 01/05/2025 Travel 01/01/2025 Telephone [facility] [address] [place] [address] Thea Cutler MA chartprep from Last 3 Months Immunizations Name Administration Dates Next Due Influenza Injectable Quadriv alant Preservative Free IIV4 MDCK 05/18/2020 Influenza injectable quadriv alent IIV4 with preservative 08/01/2017,07/27/2016,08/03/2015 Influenza injectable quadriv alent preservative free 07/06/2023,07/07/2022,06/20/2021,2018,09/06/2018 Influenza, IIV3, injectable 08/16/2015, 4,07/02/2013 Influenza, Unspecified 07/04/2021 PPD Test 08/16/2015 Pneumococcal Conjugate PCV 20 01/05/2025 Tdap 07/06/2023,01/20/2013 Social History Tobacco Use Types Packs/Day Years [...] Orientation Straight 07/24/2022 10 :29 AM EDT Last Filed Vital Signs Vital Sign Reading [...] Mass Index 37.97 01/05/2025 11:36 AM EDT Plan of Treatment Health Maintenance Due Date Last Done Comments CT Colonography 1974 FIT DNA/Cologuard 1974 FIT 1974 FOBT 1974 Sigmoidoscopy 1974 Family Planning (PISQ) 1989 Hepatitis B Vaccines (1 of 3 - 19+ 3-dose series) 1993 COVID-19 Vaccine (3 - 2023- season) 2024 07/18/2021, 06/27/2021 Influenza Vaccine (#1) 2024 , 07/07/2022, 07/04/2021, Additional history exists Zoster Vaccines (1 of 2) 2024 Depression Screening 12/23/2024 12/24/2023, 12/24/19 24 SDOH Screening 12/23/2024 12/24/2023 Alcohol/Substance Use Screening 04/04/2025 04/04/2024 Mammogram 09/03/2025 09/03/2023 Tobacco Screening 01/05/2026 01/05/2025 Colonoscopy 12/15/2027 12/14/2022 Colorectal Cancer Screening 12/15/2027 Cervical Cancer Screening 11/20/2028 HPV/Cotest 11/20/2028 Pap Smear 11/20/2028 11/20/2023, 2020 DTaP/Tdap/Td Vaccines (3 - Td or Tdap) 07/06/2033 07/06/2023, 01/20/2013 RSV Patients and Patients Aged 60 years or older (1 - 1-dose 75+ series) 2049 HIV Screening Completed 11/09/2020 Hepatitis C Screening Completed 11/09/2020 Pneumococcal Vaccine: 50+ Years Completed 01/05/2025 HIB Vaccines Aged Out No longer eligi ble based on patient's age to complete this topic HPV Vaccines Aged Out No longer eligi ble based on patient's age to complete this topic Hepatitis A Vaccines Aged Out No long er eligible based on patient's age to complete this topic IPV Vaccines Aged Out No longer eligi ble based on patient's age to complete this topic Meningococcal Vaccine Aged Out No christiano michael eligible based on patient's age to complete this topic RSV under 20 months Aged Out No longe r eligible based on patient's age to complete this topic Rotavirus Vaccines Aged Out No longer eligible based on patient's age to complete this topic Procedures Procedure Name Priority Date/Time Associated Diagnosis Comments PAP/HPV Routine 11/20/2023 11:02 AM EST COLONOSCOPY Routine 12/14/2022 ZZZ HISTORICAL HEPATITIS C AB W/REFL TO HCV RNA, QN, PCR Routine 11/09/2020 9:53 AM EST HIV 1/2 ANTIGEN/ANTIBODY, FOURTH GENERATION W/RFL Routine 11/09/2020 9:53 AM EST from Last 3 Months or Most Recently Relevant to Health Maintenance Results * PAP/HPV (11/20/2023 11:02 AM EST) Historical Provider HEALTH MAINTENANCE Final Result * (ABNORMAL) Colonoscopy (12/14/2022) Colonoscopy Abnormal( A) Normal Comment:Repeat colonoscopy i n 5 years due to hx of advanced adenoma Historical Provider HEALTH MAINTENANCE Final Result * HEPATITIS C AB W/REFL TO HCV RNA, QN, PCR (11/09/2020 9:53 AM EST) HEPATITIS C ANTIBODY NON-REACT SEBASTIEN NON-REACT SEBASTIEN [facility] INDEX 0.02 <1.00 [facility] Comment: ?? HCV antibody was non-reactive. There is no laboratory ?? evidence of HCV infection. ?? In most cases, no further action is required. However, if recent HCV exposure is suspected, a test for HCV RNA (test code 52869) is suggested. ?? For additional information please refer to http://education.[employer]/faq/IFQ04d6 (This link is being provided for informational/ educational purposes only.) ?? 11/09/2020 9:53 AM EST Dale Batres MD HISTORICAL/NON ORDERABLE LABS Fi nal Result Performing Organization Address [facility] de Phone Number [facility] [address] * HIV 1/2 ANTIGEN/ANTIBODY,FOURTH GENERATION W/RFL (11/09/2020 9:53 AM EST) HIV-1/2 ANTIGEN AND ANTIBODIES, 4TH GENERATION W/ REFLEX NON-REACT SEBASTIEN NON-REACT SEBASTIEN [facility] Comment: HIV-1 antigen and HIV-1/HIV-2 antibodies were not detected. There is no laboratory evidence of HIV infection. ?? PLEASE NOTE: This information has been disclosed to you from records whose confidentiality may be protected by state law. ??If your state requires such protection, then the state law prohibits you from making any further disclosure of the information without the specific written consent of the person to whom it pertains, or as otherwise permitted by law. A general authorization for the release of medical or other information is NOT sufficient for this purpose. ? For additional information please refer to http://education.Sp[employer]Thera/faq/BJA888 (This link is being provided for informational/ educational purposes only.) ? The performance of this assay has not been clinically validated in patients less than 2 years old. ?? 11/09/2020 9:53 AM EST us Dale Batres MD LAB BLOOD ORDERABLES Final Resul t Performing Organization Address [facility] Phone Number [facility] [address] from Last 3 Months or Most Recently Relevant to Health Maintenance Insurance [facility] ONE CARE [facility] ONE CARE < 65 Care Teams Crown Assembly Machine Set Up Mechanic Relationship Specialty Start Date End Date Name, MD Dale [address] [place] [id number] PCP - General Family Medicine 09/24/18
--- OUTSIDE RECORDS SUMMARY | 2025-01-06 09:05 | XMS_ITS | Encounter Summary ---
Author Organization [employer] Address [address] [facility] 7t [place] [address] Care Team Providers Care Commutator Inspector Name Role Phone Name, Dale SHELBY Primary Care Provider [phone] Encounter Details Date Type Department Care Team ([facility] st Contact Info) Description 07/09/2024 Orders Only [facility] [address] [place] [address] Provider, MD Jon Social History Tobacco Use Types Packs/Day Years [...] on file documented as of this encounter Procedures Procedure Name Priority Date/Time Associated Diagnosis Comments HM PAP/HPV Routine 11/20/2023 11:02 AM EST HM PAP/HPV Routine 2020 11:04 AM EST documented in this encounter Results * HM PAP/HPV (11/20/2023 11:02 AM EST) Historical Provider HEALTH MAINTENANCE Final Result * HM PAP/HPV (2020 11:04 AM EST) us Historical Provider HEALTH MAINTENANCE Final Result documented in this encounter Visit Diagnoses Not on filedocumented in this encounter Additional Health Concerns Assessment Noted Time PHQ-9 Depression Total Score: 0 12/24/19 24 11:24 AM EDT documented as of this encounter Care Teams Commutator Inspector Relationship Specialty Start Date End Date Name, MD Dale [address] [place] [address] PCP - General Family Medicine 09/24/18 documented as of this encounter
--- OUTSIDE RECORDS SUMMARY | 2025-01-06 09:05 | XMS_ITS | Encounter Summary ---
Author Organization [employer] Address [address] [place] [address] [address] [place] [address] Care Team Providers Care Research Recruiter Name Role Phone Name, Dale SHELBY Primary Care Provider [phone] Reason for Visit * Reason Onset Date Comments Appointment Request 01/17/2023 Derm Follow Up Encounter Details Date Type Department Care Team ([facility] st Contact Info) Description 01/17/2023 Telephone [facility] [address] [place], [place] [phone] Name, MD Dale [address] [place], [place] [phone] Appointment Request (Derm Follow Up) Social History Tobacco Use Types Packs/Day Years Used Date Smoking Tobacco: Never Smokeless Tobacco: Never PHQ-2 Answer Date Recorded Patient Health Questionnaire-2 Score 0 11/07/2022 Depression Answer Date Recorded Patient Health Questionnaire-2 Score 0 11/07/2022 Comments Unknown Sex and Gender Information Value Date Recorded Sex Assigned at Female 07/24/2022 10:29 AM EDT Legal Sex Female 10:29 AM EDT Gender Identity Female 07/24/2022 10:29 AM EDT Sexual Orientation Straight 07/24/2022 10 :29 AM EDT documented as of this encounter Miscellaneous Notes * Telephone Encounter - Daja Candelarionez - 01/17/2023 8:54 AM EDT Tc from patient requesting a follow up appt. Patient was last seen on 11/20/22 and was asked to callback for f/u appt in regards to Cera Ve cream results. *Patient speaks Kinyarwanda documented in this encounter Plan of Treatment Not on file documented as of this encounter Visit Diagnoses Not on filedocumented in this encounter Care Teams Research Recruiter Relationship Specialty Start Date End Date Name, MD Dale [address] [place] [address] PCP - General Family Medicine 09/24/18 documented as of this encounter
--- OUTSIDE RECORDS SUMMARY | 2025-01-06 09:05 | XMS_ITS | Clinical Summary ---
Author Organization [facility] Address [address] [place] [address] Care Team Providers Care Stock Tracer Name Role Phone Name, Dale Primary Care Provider [phone] Allergies Active Allergy Reactions Criticality Noted Date Comments Oxycodone-Acetaminophen Vomiting,Dizziness Numbness L arm Medications thiamine HCl (VITAMIN B1) 100 mg tablet Take 100 mg by mouth daily. 12/22/2016 Active vitamin D3 1,000 unit capsule Take 1,000 Units by mouth daily. 12/15/2016 Active gabapentin (NEURONTIN) 300 mg capsule Take 300 mg by mouth nightly. 07/02/2022 Active meloxicam (MOBIC) 15 mg tablet Take 15 mg by mouth once a day. 07/19/2022 Active tiZANidine (ZANAFLEX) 4 mg tablet Take 4 mg by mouth every 6 hours as needed for muscle spasms. Active phenazopyridine (PYRIDIUM) 200 mg tablet Take 1 tablet (200 mg total) by mouth 3 times a day as needed for bladder spasms. 9 tablet 11/03/2022 Active acetaminophen (TYLENOL) 325 mg tablet Take 2 tablets (650 mg total) by mouth every 6 hours as needed for pain. 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 Family History Medical History Relation Name Comments Colon cancer Father Hyperlipidemia Father Other Father Family History of hypercholesterolemia Diabetes Mother Hyperlipidemia Mother Other Mother Family History of hypercholesterolemia Bladder Cancer Neg Hx Kidney cancer Neg Hx Prostate cancer Neg Hx Relation Name Status Comments Father Mother Social History Tobacco Use Types Packs/Day Years Used Date Smoking Tobacco: Never Smokeless Tobacco: Never Tobacco Cessation:Counseling Given: Not Answered Comments:: Alcohol Use Standard Drinks/Week Comments Yes 8 (1 standard drink = 0.6 oz pur e alcohol) social Comments Unknown Sex and Gender Information Value Date Recorded Sex Assigned at Female 07/24/2022 3:24 PM EDT Legal Sex Female 6:44 PM EDT Gender Identity Female 07/24/2022 3:24 PM EDT Sexual Orientation Straight 07/24/2022 3: 24 PM EDT Last Filed Vital Signs Vital Sign Reading Time Taken Comments Blood Pressure 114/66 03/13/2023 11:11 AM EDT Pulse 70 03/13/2023 11:11 AM EDT Temperature 36.7 ??C (98.1 ??F) 11/03/2022 10:[address] Respiratory Rate 16 11/03/2022 10:39 AM EST Oxygen Saturation 98% 11/03/2022 10:39 AM EST Inhaled Oxygen Concentration - - Weight 85 kg (187 lb 6.4 oz) 11/03/2022 6:18 AM EST Height 150.5 cm (4' 11.25 ) 11/03/2022 6:[address] Body Mass Index 37.53 11/03/2022 6:18 AM EST Plan of Treatment Health Maintenance Due Date Last Done Comments Cervical Cancer Screening 1974 Cologuard 1974 Colon Cancer Screening 1974 Colonoscopy 1974 FOBT / Fit Test 1974 HPV and Pap Smear 1974 Pap Smear 1974 Sigmoidoscopy 1974 Hepatitis B Vaccines (1 of 3 - 19+ 3-dose series) 1993 DTaP,Tdap,and Td Vaccines (2 - Td or Tdap) 01/20/2023 01/20/2013 COVID-19 Vaccine (3 - 2023-2 5 season) 2024 07/18/2021, 06/27/2021 Pneumococcal Vaccine: 50+ Ye ars (1 of 1 - PCV) 2024 Zoster Vaccines (1 of 2) 2024 Alcohol/Substance Use Screening 09/24/2024 Influenza Vaccine (Season Ended) 2025 07/07/2022, 06/20/2021, 05/18/2020, Additional history exists RSV Vaccine (60+ years old a nd patients) (1 - 1-dose 75+ series) 2049 HIV Screening Completed 11/09/2020 Insurance [facility] [place] [id number] Advance Directives * Full Code (Latest Code Status on File) Date Activated Date Inactivated Comments 03/25/2020 6:05 AM 03/25/2020 1:50 PM * Full Code Date Activated Date Inactivated Comments 06/27/2018 6:22 AM 06/27/2018 11:44 AM Care Teams Stock Tracer Relationship Specialty Start Date End Date NameDale [address] [place] [address] PCP - General 04/12/17
--- OUTSIDE RECORDS SUMMARY | 2025-01-06 09:05 | XMS_ITS | Referral Summary ---
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
--- OUTSIDE RECORDS SUMMARY | 2025-01-06 09:05 | XMS_ITS | Encounter Summary ---
Author Organization [facility] Address [address] [place] [address] [address] [place] [address] Care Team Providers Care Band Straightener Name Role Phone Name, Dale SHELBY Primary Care Provider [phone] Encounter Details Date Type Department Care Team (Latest Contact Info) Description 10/09/2018 Abstract [facility] CONVERSIONS Dental, Provider, DDS Social History Tobacco Use Types Packs/Day Years Used Date Smoking Tobacco: Never Assessed Comments Unknown Sex and Gender Information Value [...] on filedocumented in this encounter Care Teams Band Straightener Relationship Specialty Start Date End Date Name, MD Dale [address] [place] [address] PCP - General Family Medicine 09/24/18 documented as of this encounter
--- OUTSIDE RECORDS SUMMARY | 2025-01-06 09:05 | XMS_ITS | Clinical Summary ---
Author Organization [facility] Address [address] [place] [address] Phone Care Team Providers Care Tare Worker Name Role Phone Name, Dale SHELBY Primary Care Provider [phone] Allergies Active Allergy Reactions Criticality Noted Date Comments Acetaminophen 02/25/2016 Desoxycorticosterone 02/22/2024 Oxycodone 02/25/2016 Other Reaction(s): nausea, rashes, vomiting Other reaction(s): nausea, rashes, vomiting Oxycodone-Acetaminophen Nausea And Vomiting,Dizziness 09/30/2015 Numbness L arm Other reaction(s): Not Indicated, Vomiting Numbness L arm Medications tiZANidine (ZANAFLEX) 4 mg tablet Take 1 tablet (4 mg total) by mouth every 8 (eight) hours if needed. 09/02/20 22 Active cholecalciferol (VITAMIN D-3) 50 mcg (2,000 unit) capsule Take by mouth. Activ e THIAMINE HCL, VITAMIN B1, ORAL Take by mouth. Active meloxicam (MOBIC) 15 mg tablet TAKE 1 TABLET BY MOUTH EVERY DAY NEEDED FOR SEVERE PAIN FOR 30DAYS. 07/21/20 22 Active ibuprofen (ADVIL,MOTRIN) 600 mg tablet Take 800 mg by mouth every 8 hours as needed. Active gabapentin (NEURONTIN) 100 mg capsule 01/22/20 24 Active omeprazole (PriLOSEC) [address] capsule 07/06/20 24 Active ceramides cream (CERAVE) cream moisturizing cream Apply 1 Application topically. 11/20/19 23 Active cyclobenzaprine (FLEXERIL) 10 mg tablet See Instructions, PRN Other, 10 mg By Mouth Every 8 hours as needed for muscle spasm., # 42 tablet, 0 Refills, Maintenance, 09/10/14 10:13:34 AM EST, Tablet 09/10/20 14 Active ergocalciferol (Vitamin D2) 1,250 mcg (50,000 unit) capsule Take 50,000 Int'l Units by mouth. 08/08/20 23 Active diclofenac (VOLTAREN) 1 % topical gel Apply thin layer by topical route (quantity as directed on package insert) to affected area of pain 3 times daily as needed. 04/04/20 24 Active docusate sodium (COLACE) 100 mg capsule See Instructions, 1 capsule By Mouth 2 times a day as needed for constipation., # 28 capsule, 0 Refills, Maintenance, 09/10/14 10:14:07 AM EST, Capsule 09/10/20 14 Active ketoconazole (NIZORAL) 2 % shampoo Apply topically. 02/06/20 23 Active phenazopyridine (PYRIDIUM) 200 mg tablet Take 1 tablet (200 mg total) by mouth. 11/03/19 23 Active clotrimazole-bet amethasone (LOTRISONE) 1-0.05 % cream Apply topically 2 (two) times a day. 30 g 1 12/20/19 25 Active metroNIDAZOLE (METROGEL) 0.75 % (37.5mg/5 gram) vaginal gel 1 applicatorful PV nightly x5 nights 11/28/19 23 025 Discontinu ed(Therapy completed) clotrimazole-bet amethasone (LOTRISONE) 1-0.05 % cream Apply topically to affected area twice daily for no more than 10 days 08/28/20 23 025 Discontinu ed(Reorder ) metroNIDAZOLE (FLAGYL) 500 mg tablet Take 1 tablet (500 mg total) by mouth 2 (two) times a day for 7 days. Do not use mouth wash or consume alcohol until 48 hours after last dose 14 tablet 12/22/19 25 025 Active Problems Problem Noted Date Diagnosed Date Atypical squamous cell wick es of undetermined significance (ASCUS) on cervical cytology with positive high risk human papilloma virus (HPV) 03/19/2019 Overview (06/27/2024): 05/09/2019 neg colpo Chronic cystitis 09/08/2015 Overview (06/27/2024): Per Dr. 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 Low back pain 04/20/2014 Urge incontinence 01/20/2013 Encounters Date Type Department Care Team Description 12/19/2024 8:45 AM EDT Office Visit Obstetrics & Gynecology - [address] [address] Juliet Vance CNM Encounter for well woman exam with routine gynecological exam (Primary Dx); Screening breast examination; Acute vaginitis from Last 3 Months Immunizations Name Administration Dates Next Due Influenza trivalent, with pr eservative (Fluzone; Afluria) 6mo and older 08/16/2015,08/07/2014,07/02/2013 Influenza, Unspecified 07/04/2021 PPD Test 08/16/2015 [employer] SARS-CoV-2 COVID-19, mRNA, LNP-S, preservative free 07/18/2021,06/27/2021 Tdap Tetanus diptheria acell ular pertussis (Boostrix; Adacel) 7yo and older 01/20/2013 Surgical History Surgery Date Site/Laterality Comments CHOLECYSTECTOMY PROCEDURE: HISTORICAL CHOLECYSTECTOMY SECTION PROCEDURE: HISTORICAL TUBAL LIGATION PROCEDURE: HISTORICAL TUBAL LIGATION Medical History Medical History Date Comments Osteoarthritis of lumbar spine 12/18/2012 D X:Osteoarthritis of lumbar spine History of chlamydia infection 2011 D X:History of chlamydia infection Abnormal cervical Pap smear with positive HPV DNA test 2011 DX:Abnormal cervical Pap sme ar with positive HPV DNA test; COMMENT: Pap 12/04 normal Chronic cystitis 09/08/2015 DX:Chronic cyst itis Family History Medical History Relation Name Comments Other: cynthia leung Brother Colon cancer Father 78 Dementia Father Diabetes Father Hyperlipidemia Father colon cancer 72 Dementia Mother Hyperlipidemia Mother Breast cancer Neg Hx Ovarian cancer Neg Hx Uterine cancer Neg Hx Relation Name Status Comments Brother Father dementia, DM Mother Alive dementia Sister Alive Social History Tobacco Use Types Packs/Day Years Used Date Smoking Tobacco: Never Smokeless Tobacco: Never Alcohol Use Standard Drinks/Week Comments Yes 0 (1 standard drink = 0.6 oz pur e alcohol) Comments No Sex and Gender Information Value Date Recorded Sex Assigned at Not on file Legal Sex Female 1:00 PM EST Gender Identity Not on file Sexual Orientation Not on file Occupation Industry Job Start Date Job End Date Unemployed Not on file Not on file Not on file Obstetrics History Para Term AB IAB SAB Ectopic Multiple Livin g Live Births 3 3 2 1 1 2 4 Date Outcome GA Total Labor Labor/2nd/3rd Weight Sex Type Anes PTL Subha A1 A5 Name Clin Term Vag-S pont Living Vag-S pont [place] Demise Comments:stillbirth CS-Un spec [place] Demise Comments:lived one day Term CS-Un spec Living Last Filed Vital Signs Vital Sign Reading Time Taken Comments Blood Pressure 103/61 12/19/2024 8:44 AM EDT Pulse 66 12/19/2024 8:44 AM EDT Temperature - - Respiratory Rate - - Oxygen Saturation - - Inhaled Oxygen Concentration - - Weight 88 kg (194 lb 1.6 oz) 12/19/2024 8:44 AM EDT Height 152.4 cm (5') 06/25/2024 9:39 AM EDT Body Mass Index 37.91 06/25/2024 9:39 AM EDT Plan of Treatment Upcoming Encounters Date Type Department Care Team (Late st Contact Info) Description 05/04/2025 3:10 PM EDT Appointment Radiology Department [address] [id number] Health Maintenance Due Date Last Done Comments Hepatitis B Vaccines (1 of 3 - 19+ 3-dose series) 1993 Colorectal Cancer Screening: Colonoscopy 09/02/2022 Medicare Annual Wellness Visit 09/02/2022 Social Influencers of Health Screening 09/02/2022 COVID-19 Vaccine ( season) 2024 07/18/2021, 06/27/2021 Pneumococcal Vaccine: 50+ Years (1 of 1 - PCV) 2024 Zoster Vaccines (1 of 2) 2024 Depression Screening 12/23/2024 12/24/2023 Influenza Vaccine (Season Ended) 2025 07/06/2023, 07/07/2022, 07/04/2021, Additional history exists Breast Cancer Screening 09/01/2025 09/01/20 23, 08/26/2022, 08/20/2021, Additional history exists Cervical Cancer Screening: HPV 11/20/2028 11/20/2023 DTaP,Tdap,and Td Vaccines (3 - Td or Tdap) 07/06/2033 07/06/2023, 01/20/2013 HIV Screening Completed 11/09/2020, 08/02/2020 Hepatitis C Screening Completed 11/27/2022 HIB Vaccines Aged Out No longer eligi [...] on patient's age to complete this topic MMR Vaccines Aged Out No longer eligi ble based on patient's age to complete this topic Meningococcal ACWY Vaccine Aged Out N o longer eligible based on patient's age to complete this topic Meningococcal B Vaccine Aged Out No l onger eligible based on patient's age to complete this topic Pneumococcal Vaccine: Pediatrics (0 to 5 Years) and At-Risk Patients (6 to 64 Years) Aged Out No longer eligible based on patient's age to complete this topic RSV Immunization Patients Under 20 months Aged Out No longer eligible based on patient's age to complete this topic Varicella Vaccines Aged Out No longer eligible based on patient's age to complete this topic Procedures Procedure Name Priority Date/Time Associated Diagnosis Comments TRICHOMONAS VAGINALIS ANTIGEN Routine 12/19/2024 9:07 AM EDT Encounter for well woman exam with routine gynecological exam Acute vaginitis WET PREP, GENITAL Routine 12/19/2024 9:0 7 AM EDT Encounter for well woman exam with routine gynecological exam Acute vaginitis CHLAMYDIA TRACHOMATIS AND NEISSERIA GONORRHOEAE PCR Routine 12/19/2024 9:07 AM EDT Encounter for well woman exam with routine gynecological exam Acute vaginitis HPV Routine 11/20/2023 SCREENING MAMMOGRAPHY BI 2-VIEW BREAST INC CAD Routine 09/01/2023 10:28 AM EST Encounter for screening mammogram for malignant neoplasm of breast HEPATITIS C SCREENING Routine 11/27/2022 HIV SCREENING Routine 08/02/2020 from Last 3 Months or Most Recently Relevant to Health Maintenance Results * Trichomonas vaginalis antigen (12/19/2024 9:07 AM EDT) Trichomonas vaginalis Negative Negative 12/19/2024 4:42 PM EDT [facility] Swab Vaginal structure / Unknown Non-blood Collection / Unknown 12/19/2024 9:07 AM EDT 12/19/2024 3:58 PM EDT Juliet Vance CNM LAB MICROBIOLOGY - GENERAL OR DERABLES Final Result [facility] [address] [place] [address], * Chlamydia trachomatis and Neisseria gonorrhoeae molecular study (12/19/2024 9:07 AM EDT) Neisseria gonorrhoeae PCR Negative Negative LAB MOLECULAR DIAGNOSTICS METHOD 12/20/2024 8:40 AM EDT [facility] Chlamydia trachomatis PCR Negative Negative LAB MOLECULAR DIAGNOSTICS METHOD 12/20/2024 8:40 AM EDT [facility] Swab Cervix uteri structure / Unknown Non-blood Collection / Unknown 12/19/2024 9:07 AM EDT 12/19/2024 3:59 PM EDT [facility] MICRO[facility] - GENERAL OR DERABLES Final Result Performing Organization Address [facility] Co de Phone Number [facility] [address] [place] [address], * (ABNORMAL) Wet prep, genital (12/19/2024 9:07 AM EDT) Pathologist [facility] Clue Cells, Wet Prep Positive(A) Negative 12/19/2024 4:26 PM EDT [facility] Yeast, Wet Prep Negative Negative 12/19/2024 4:26 PM EDT [facility] Trichomonas, Wet Prep Indeterminate Negative 12/19/2024 4:26 PM EDT [facility] Comment:Refer to Trichomonas antigen. Swab Vaginal structure / Unknown Non-blood Collection / Unknown 12/19/2024 9:07 AM EDT 12/19/2024 3:58 PM EDT [facility] MICROBIOLOGY - GENERAL OR DERABLES Final Result Performing Organization Address [facility] de Phone Number [facility] [address] [place] [address], * Cervical Cancer Screening: HPV (11/20/2023) [facility] Cervical Cancer Screening: HPV negative, abstracted Historical Provider MD HEALTH MAINTENANCE Final Result * SCREENING MAMMOGRAPHY BI 2-VIEW BREAST INC CAD (09/01/2023 10:28 AM EST) Anatomical Region Laterality Modality Radiographic [place] ging 08/26/2022 11:0 2 AM EST Narrative 09/03/2023 12:37 PM EST This is a summary report. The complete report is available in the patient's medical record. If you cannot access the medical record, please contact the sending organization for a detailed fax or copy. Exam: Screening mammogram Findings: Digital bilateral full-field screening mammography is performed with tomosynthesis and interpreted with the aid of computer-aided detection. ??Comparison is made with 08/26/2022 and as far back as 07/22/2019. Breast parenchyma is composed of scattered fibroglandular densities. ??No new suspicious mass, architectural distortion, or suspicious calcifications. Impression: No mammographic evidence of malignancy. BI-RADS 1 - negative Procedure Note Elizabeth Johnson MD - 10/30/2023 This is a summary report. The complete report is available in thepatient's medical record. If you cannot access the medical record, pleasecontact the sending organization for a detailed fax or copy. Exam: Screening mammogram Findings: Digital bilateral full-field screening mammography is performedwith tomosynthesis and interpreted with the aid of computer-aideddetection. Comparison is made with 08/26/2022 and as far back as1. Breast parenchyma is composed of scattered fibroglandular densities. Nonew suspicious mass, architectural distortion, or suspiciouscalcifications. Impression: No mammographic evidence of malignancy. BI-RADS 1 - negative Juliet HO IMG XR PROCEDURES Final Resul t * Hepatitis C Screening (11/27/2022) Pathologist [facility] Hepatitis C Screening abstracted Historical Provider HEALTH MAINTENANCE Final Result * HIV Screening (08/02/2020) Pathologist [facility] HIV Screening abstracted Historical Provider HEALTH MAINTENANCE Final Result from Last 3 Months or Most Recently Relevant to Health Maintenance Insurance [employer] MEDICARE Member Subscriber Plan / Payer (Ef fective 2019-Present) Name:Esperanza Melgar Relation to Subscriber:Self Name:Esperanza Melgar Payer ID:[id number] Group ID:[id number] Type:Not on file Address: [place] [address] [place] [address] Care Teams Tare Worker Relationship Specialty Start Date End Date Name, MD Dale [address] [place], [place] PCP - General Internal Medicine 07/29/17
--- OUTSIDE RECORDS SUMMARY | 2025-01-06 09:05 | XMS_ITS | Encounter Summary ---
Author Organization [facility] Address [address] [place] [address] Care Team Providers Care Income Tax Return Preparer Name Role Phone Name, Dale Primary Care Provider [phone] Encounter Details Date Type Department Care Team (Late st Contact Info) Description 08/12/2022 Orders Only [facility] XRay [address] [place], [place] [phone] Nidhi Christian MD [address] [place], [place] [phone] Social History Tobacco Use Types Packs/Day Years Used Date Smoking Tobacco: Never Smokeless Tobacco: Never Comments:: Alcohol Use Standard Drinks/Week Comments Yes 8 (1 standard drink = 0.6 oz pur e alcohol) social Comments Unknown Sex and Gender Information Value Date Recorded Sex Assigned at Female 07/24/2022 3:24 PM EDT Legal Sex Female 6:44 PM EDT Gender Identity Female 07/24/2022 3:24 PM EDT Sexual Orientation Straight 07/24/2022 3: 24 PM EDT documented as of this encounter Plan of Treatment Not on file documented as of this encounter Visit Diagnoses Not on filedocumented in this encounter Care Teams Income Tax Return Preparer Relationship Specialty Start Date End Date Name, Dale [address] [place] [address] PCP - General 04/12/17 documented as of this encounter
--- OUTSIDE RECORDS SUMMARY | 2025-01-06 09:05 | XMS_ITS | Clinical Summary ---
Author Organization [facility] Address [address] [place] [phone] Phone Care Team Providers Care Employee Representative Name Role Phone Unknown, Unknown Primary Care Provider Nate carrera Social History Tobacco Use Types Packs/Day Years Used Date Smoking Tobacco: Never Assessed Sex and Gender Information Value Date Recorded Sex Assigned at Not on file Gender Identity Not on file Sexual Orientation Not on file Plan of Treatment Not on file Medical Devices Not on file Care Teams Employee Representative Relationship Specialty Start Date End Date Unknown, Unknown, PCP - General 10/04/17 Additional Source Comments The information contained in this document represents components of the legal health record. It is not the complete legal health record.[facility]
--- OUTSIDE RECORDS SUMMARY | 2025-01-06 09:05 | XMS_ITS | Encounter Summary ---
Author Organization [facility] Address [address] [place] [address] Care Team Providers Care Manager Corporate Strategy Name Role Phone NameDale MD Primary Care Provider [phone] Encounter Details Date Type Department Care Team ([facility] st Contact Info) Description 02/23/2023 Abstract [facility] MEDICINE [address] [place], [place] [phone] NameDale MD [address] [place] [address] Social History Tobacco Use Types Packs/Day Years [...] Orientation Straight 07/24/2022 10 :29 AM EDT COVID-19 Exposure Response Date Recorded In the last 10 days, have yo u been in contact with someone who was confirmed or suspected to have Coronavirus/COVID-19? No / Unsure 02/05/2023 2:12 PM EDT documented as of this encounter Plan of Treatment Not on file documented as of this encounter Visit Diagnoses Not on filedocumented in this encounter Care Teams Manager Corporate Strategy Relationship Specialty Start Date End Date NameDale MD [address] [place] [address] PCP - General Family Medicine 09/24/18 documented as of this encounter
--- OUTSIDE RECORDS SUMMARY | 2025-01-06 09:05 | XMS_ITS | Encounter Summary ---
Author Organization [facility] Address [address] [facility] [address] [place] [address] Care Team Providers Care Hand Cell Tuber Name Role Phone Name, Dale SHELBY Primary Care Provider Reason for Visit * Reason Comments Med Refill Encounter Details Date Type Department Care Team (Late st Contact Info) Description 02/08/2023 Refill [facility] MEDICINE [address] [place], [place] [phone] Name, MD Dale [address] [place], [place] [phone] Spina bifida occulta Social History Tobacco Use Types Packs/Day Years [...] this encounter Visit Diagnoses Diagnosis Spina bifida occulta documented in this encounter Care Teams Hand Cell Tuber Relationship Specialty Start Date End Date Name, MD Dale [address] [place] [address] PCP - General Family Medicine 09/24/18 documented as of this encounter
--- OUTSIDE RECORDS SUMMARY | 2025-01-06 09:05 | XMS_ITS | Clinical Summary ---
Author Organization [facility] Address [address] [place] [address] Care Team Providers Care Home Improvement Installer Name Role Phone Unavailable Primary Care Provider Unavailabl e Social History Tobacco Use Types Packs/Day Years Used Date Smoking Tobacco: Never Assessed Comments Unknown Sex and Gender Information Value Date Recorded Sex Assigned at Not on file Legal Sex Female 11:50 AM EDT Gender Identity Not on file Sexual Orientation Not on file Plan of Treatment Health Maintenance Due Date Last Done Comments Colorectal Cancer: COLONOSCO PY Screening every 10 yrs (or Modifier) 1974 Depression: Screening Annual ly using PHQ-2/9 in Adults 18 yrs or above (or HM Modifier)([facility]) 1974 Hepatitis C Virus Infection in Adolescents and Adults: Screening (or Modifier) ([facility]) 1992 [facility] Screening Reminder: Mariah yoder for all adults ([facility]) 1992 Tobacco Smoking Cessation: i n Adults excluding Women: Behavioral and Pharmacotherapy Interventions ([facility]) 1992 DTaP/Tdap/Td Vaccines ([facility]) (1 - Tdap) 1993 Cervical Cancer Screenin 1-65 yrs of age (or Modifier) 1995 Cervical Cancer Screening: P ap every 3 yrs pts age 21-65 1995 Cervical Cancer: Pap Screeni ng with Modifier timing ([facility]) 1995 Cervical Cancer: hrHPV alone or with cotesting Pap for Pts 30-65yrs screening every 5yrs ([facility]) 1995 Colorectal Cancer Screening 45 -75 Yrs (or HM Modifier ) 2019 Colorectal Cancer: FLEXIBLE SIGMOIDOSCOPY Screening every 5 yrs 2019 Colorectal Cancer: Fecal Imm unochemical Test (FIT) Annually [facility] 2019 Colorectal Cancer: High-sens itivity gFOBT Screening Annually [facility] 2019 Colorectal Cancer: Stool Col oguard Screening every 3 yrs 2019 Colorectal Cancer:CT Colonography Screening every 5 yr s 2019 Lipid Screening: Every 5 yrs for Women aged 45+ (or HM Modifier) ([facility]) 2020 Flu Vaccination: Yearly for ages 18mos through 64 years (or Modifier)([facility]) 04/24/2024 COVID-19 Vaccine Screening: Initial Series and Booster Status ([facility]) (2023- season) 2024 Breast Cancer: Screening Mariah beba age 50-74 yrs (or HM Modifier)([facility]) 2024 Pneumococcal Vaccination Scr eening: Patients 50+ yrs of age ([facility]) (1 of 1 - PCV) 2024 Zoster/Shingles Vaccine Seri es Screening: Adults aged 18+ yrs (or HM Modifiers)([facility]) (1 of 2) 2024 Medical Devices Not on file
--- OUTSIDE RECORDS SUMMARY | 2025-01-06 09:05 | XMS_ITS | Encounter Summary ---
Author Organization [facility] Address [address] [place] [address] Phone Care Team Providers Care Supervisor Mixing Name Role Phone Unknown, Unknown Primary Care Provider Nate carrera Encounter Details Date Type Department Care Team (Latest Contact Info) Description 10/05/2017 Ancillary Orders [facility] [address] [place] [address] [place] [address] [place] DO [address] [place] [address] Syncope, unspecified syncope type Social History Tobacco Use Types Packs/Day Years Used Date Smoking Tobacco: Never Assessed Sex and Gender Information Value Date Recorded Sex Assigned at Not on file Gender Identity Not on file Sexual Orientation Not on file documented as of this encounter Plan of Treatment Not on file documented as of this encounter Results * Holter Monitor 24 Hours (10/05/2017 12:26 PM EST) Anatomical Region Laterality Modality Heart Other Narrative 10/05/2017 1:19 PM EST 44 hour monitor: No symptoms reported. Baseline rhythm is sinus with a minimum heart rate 49 maximum 122 average 71 bpm. Occasional PACs and PVCs. There is a single 3 beat run of accelerated idioventricular rhythm. Impression: Normal 24-hour monitor. No symptoms reported. [place] DO [facility] ORDERABLES documented in this encounter Visit Diagnoses Diagnosis Syncope, unspecified syncope type Syncope, unspecified syncope type documented in this encounter Care Teams Supervisor Mixing Relationship Specialty Start Date End Date Unknown, Unknown, PCP - General 10/04/17 documented as of this encounter Additional Source Comments The information contained in this document represents components of the legal health record. It is not the complete legal health record.[facility]
[2025-01-06 11:06] LABS: MANUAL DIFF FLAG NO
[2025-01-06 11:09] LABS: Basophils Absolute Auto 0.1 X10*3/uL (0.0-0.2); Basophils Percent Auto 0.6 % (0-2); Eosinophils Absolute Auto 0.2 X10*3/uL (0.0-0.4); Eosinophils Percent Auto 2.6 % (0-4); Hematocrit 41.3 % (37.0-47.0); Hemoglobin 13.7 g/dl (12.0-16.0); Imm Gran Abs Auto 0.03 X10*3/uL (0.00-0.03); Imm Gran Pct Auto 0.4 % (0.0-0.4); Lymphocytes Absolute Auto 1.5 X10*3/uL (1.2-4.9); Lymphocytes Percent Auto 18.4 % (20-40); Mean Corpuscular HGB Conc 33.2 g/dl (31.0-35.0); Mean Corpuscular Hemoglobin 31.4 pg (27.0-33.0); Mean Corpuscular Volume 94.7 fL (80.0-98.0); Mean Platelet Volume 11.9 fL (9.4-12.3); Monocytes Absolute Auto 0.6 X10*3/uL (0.1-1.2); Monocytes Percent Auto 8.1 % (2-11); Neutrophils Absolute Auto 5.6 x10*3/uL (2.0-8.3); Neutrophils Percent Auto 69.9 % (45-73); Platelet Count 248 X10*3/uL (160-400); Red Blood Count 4.36 X10*6/uL (4.20-5.50); Red Cell Distribution Width 13.5 % (11.0-16.0)
[2025-01-06 11:26] LABS: Anion Gap 9 (12-20); Blood Urea Nitrogen 18 mg/dL (9-16); Calcium 9.2 mg/dL (8.4-10.2); Carbon Dioxide 27 mmol/L (22-29); Chloride 108 mmol/L (96-108); Cholesterol 225 mg/dL (<200); Estimated Glomerular Filt Rate > 60; Glucose Random 88 mg/dL (60-115); HDL Cholesterol 56 mg/dL (>40); LDL Cholesterol Calculated 146 mg/dL (<100); Potassium 4.1 mmol/L (3.3-5.1); Sodium 140 mmol/L (135-145); Triglycerides 116 mg/dL (<150)
== END 2025-01-06 08:42 | disposition home or self-care (01) ==
LOC: HO.HHCL 08:41
PROVIDERS: Visit Provider Internal Medicine Geriatric Medicine
DX: Z13.6 Encounter for screening for cardiovascular disorders (principal); Z13.220 Encounter for screening for lipoid disorders; E55.9 Vitamin D deficiency, unspecified; G89.4 Chronic pain syndrome
CPT/HCPCS: 36415; 80048; 80061; 82306; 85025

== ENCOUNTER 2025-01-26 09:33 | Outpatient (AMB) | payer OTHER, SELFPAY ==
--- NOTE | 2025-01-26 09:38 | MHC.OFFVIS ---
Vital Signs 01/26/25 09:43 Height 5 ft Weight 194 lb 6 oz BMI 38.0 BP 132/82 Blood Pressure Location Rt brachial Position Sitting Pulse 58 Pulse Source Pulse Oximeter Pulse Oximetry (%) 99 Oxygen Delivery Method Room Air Intake Visit Reasons: Chronic pain/last seen on 2021 [employer] Furniture Required: Yes As[employer] Furniture Language: Manager Hardware Services: As[employer] Furniture Present Assembler Metal Furniture Name: Ave #[id number] Information Interpreted: non-clinical & clinical Accompanied by: Self / Same As Patient Allergies oxycodone [OXYCODONE] Allergy (Severe, Verified 12/28/22 10:09) CP/DIZZINESS/VOMITING Medication List - Last Reconciled 01/26/25 by JHON Thurman cholecalciferol (vitamin D3) 50 mcg PO DAILY cyclobenzaprine 5 mg PO BEDTIME PRN meloxicam 15 mg PO DAILY triamcinolone acetonide 0.1% appl topical HPI Comments Details: The patient is a 49-year-old female presenting with chronic low back pain, which has persisted over the years and radiates to her legs, worse on the left. She reports that previous physical therapy was not beneficial and has been omitted for the last 3 years. Her recent occasions led her to seek urgent care due to intensified pain. The patient also mentions Orthopedic concerns, specifically regarding left heel pain and a past diagnosis of spina bifida, partly contributing to her symptoms. She considered a spinal cord stimulator previously but decided against pursuing it. Pain distribution remains predominantly on the left lower extremity but is now including the right groin area. The patient describes increased severity, especially affecting her ability to sleep, and declines current use of previously prescribed medications due to insufficient relief and troublesome side effects, considering other pharmacologic options for pain relief. - Onset and Timing: Long-standing issue, with increased severity over recent times. - Quality and Character: Deep ache, with periods of exacerbation causing significant discomfort. - Primary Location: Low back area. - Radiation: To the legs, particularly left lower extremity laterally and posteriorly, and newly to the right groin area. - Exacerbating Factors: Activity and periods without physical therapy. - Relieving Factors: None reported to be significantly effective, though previous measures involved attempts at physical therapy and medication adjustments. - Interference: Pain significantly affects sleep quality and daily function, with previous episodes leading to emergency department visits. - Affect: Reports difficulty sleeping due to pain, impacting overall quality of life. - Analgesia: Previous medications such as ibuprofen, gabapentin, and tizanidine were taken but not currently in use due to adverse effects or ineffective relief. Currently takes meloxicam. Considering trial of cyclobenzaprine. - Adverse Effects: Experiences allergic reactions to heat therapy; gabapentin causes sleepiness. - Activities of Daily Living: Pain limits activity level and disrupts sleep, affecting daily function. - Aberrant Drug Related Behaviors: None reported or discussed. PRIOR 03/31/22: Patient presents for follow up today in the office. She reports tolerating gabapentin well at bedtime without noted side effects. She reports oral ketamine from [facility] has not been approved but is not sure of denial reasons. We will reach out to [facility] on patient's behalf per patient's request. Patient continues to endorse lower back pain that radiates to her LLE laterally and posteriorly with associated numbness and tinglings in her lower left leg. She states at times her back pain radiates to right hip and notes increased back pain with her montly menses. We reviewed her lumbar MRI at great detail and length again today as well neurosurgeon's recent re-evaluation report. Patient states that constant pain during the day and night has been significantly affecting her daily functioning, sleep, quality of life, and ability to get comfortable. She has been taking Ibuprofen 800 mg BID-TID daily as needed to partially alleviate her pain. We discussed possibility of neuromodulation with SCS trial as well consideration of buprenorphine products. She is hesitant for any attempts for lumbar injections. Patient denies any fever, malaise, chest pain, dyspnea, abdominal or groin pain, loss of balance, gait instability, weight loss, or saddle anesthesia. Patient reports getting regular Botox injections for her bladder dysfunction and has been followed by GI for lack of control of bowel and fecal urgency. PRIOR: Patient presents today via telehealth encounter to discuss possibility for ANA injection to alleviate her back pain. I have referred this patient to Dr. Driscoll at [facility] for re-evaluation with recent MRI results and previous aborted attempts to un-theter her cord in 2013 due [address] Dr[address] Driscoll has reviewed her new MRI and has notified us that he does not think he can offer anything else to this patient, especially that there is no stenosis and no significant changes in moderate chronic spondylosis and grade 2 anterolisthesis at the L5-S1. Patient reports today that she has moved to [facility] 7 years ago. Here in [facility], she learned about her congenital spina bifida but in [facility] she was told and treated for Multiple Sclerosis. I have notified this patient today that I have reviewed her case and recent lumbar MRI results with Dr. Da Silva. We discussed possible attempts for Left L5-S1 TFESI which patient declined at this time. She reports that gabapentin has been minimally helpful but she cannot increase doses due to increasing drowsiness. Patient states she lives with her daughter at home and cannot be sleepy or drowsy during the daytime. She continues to report lower back pain that radiates to her LLE laterally and posteriorly with associated numbness and tinglings in her lower left leg. Patient denies any recent falls or bowel incontinence. She denies any fever, malaise, chest pain, dyspnea, abdominal or groin pain, dizziness, weight changes, or saddle anesthesia. PRIOR: Patient is a 46 years old with history of a congenital spina bifida and tethered cord presents today via telehealth to discuss MRI results. spanish interpreter was utilized during this encounter. She continues to endorse worsening lower back pain that radiated to her LLE laterally and posteriorly with intermittent numbness and tingling in her left thigh and left toes. Patient has history of urinary incontinence for 4-5 years and receives Botox injections. Patient reports she had several bowel incontinence episodes this week and has been very concerned about this. She also reports her LLE weakness with left foot gets stuck frequently and causes her to trip a lot. She has left lower extremity atrophy since childhood. Patient denies any fever, malaise, abdominal or groin pain, dizziness, weight changes, or saddle anesthesia. Pain is rated at 8/10 today. Her lumbar MRI was consistent with chronic postoperative changes related to post laminectomy changes at the L4 through the L5 levels and prior attempts to untether spinal cord due to a thickened fatty filum partially visualized at the lower sacral levels. Abnormal low-lying conus tip terminating along the dorsal margin of the thecal sac at the L4 level to the left of midline. 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 Small syrinx within the cord at the L1 level. Moderate chronic spondylosis and grade 2 anterolisthesis at the L5-S1 level without central canal stenosis or foraminal narrowing. Patient had complete lamiectomy of L4 with decompression of the L3-L4 and L4-L5 interlaminar spaces and attempted tethered cord through the durotomy which was aborted due to the nature of the anatomy in 2013 at [facility] by Dr. Driscoll. At L5-S1, she had a congenital malformation with spondylolisthesis and the end of the conus was at L4 per previous MRI. Previous MRI did not specify grading of listhesis and current anterolisthesis is at grade 2 with worsening symptoms. Plan to refer patient back to neurosurgery for re-evaluation. PRIOR: Patient is a pleasant 46 years old [place]orese speaking female who returns today with worsening chronic back pain that radiates laterally to her left lower leg into her left ankle with intermittent numbness and tingling in her left thigh laterally. Patient has been previously seen in this office by Dr. Da Silva and last visit was for review of thoracic MRI in 11/2019 that showed a short segment of central canal dilatation, measuring up to 1.8 mm, within the distal spinal cord at the level of the inferior aspect of the L1 vertebral body. The spinal cord appears low lying. Patient has radiculopathy symptoms secondary to spina bifida occulta. Patient reports she had exploratory low back surgery by Dr. Montemayor at [facility] in 2013, nothing else was performed. Denies any recent trauma, injury, or falls. [facility]. Reports intermittent left sided weakness in her left lower extremity. She has been taking ibuprofen, gabapentin, and TENS unit which no longer provide her pain relief. Patient completed one session of physical therapy over 5 years ago that aggravated her back pain and was told not to continue PT. Currently, she is unable to tolerate PT due to pain and her current conditions. Denies chiropractic manipulation, acupuncture or massage.?Patient reports decreased left lower extremity muscle mass and regularly receives bladder Botox injections due to spina bifida. She denies any fever, malaise, abdominal or groin pain, dizziness, weight changes, bladder/bowel dysfunction or saddle anesthesia. Pain is rated at 7/10 today. [facility] Medical History Family history of colon cancer in father NSAID long-term use Syncope Obesity (BMI 30-39.9) Osteoarthritis of lumbar spine Urinary incontinence Chronic back pain Venous insufficiency Varicose vein of leg Tubular adenoma Neurogenic bladder disorder Spina bifida occulta Surgical History H/O colonoscopy History of section History of tubal ligation History of cholecystectomy Social History Patient Tobacco Use Status: Never used Tobacco Review of Systems Const Details: - Musculoskeletal: Reports chronic low back pain, radiation to legs, heel pain, right groin discomfort. - Neurological: Denies new symptoms beyond previously listed radiating pain and tingling. - General: Denies ongoing use of previous medications due to side effects. All systems reviewed & are unremarkable except as noted in HPI and below Physical Exam Vital Signs: Last Vital Signs Pulse 58 01/26/25 09:43 BP 132/82 01/26/25 09:43 Pulse Ox 99 01/26/25 09:43 Oxygen Delivery Method Room Air 01/26/25 09:43 BMI result Body Mass Index 38.0 General: Appears afebrile. Alert and oriented. Mood and affect appropriate. Follows and participates in conversation appropriately. Respiratory effort is unlabored. No cough. Able to transition from sit to stand unassisted. Ambulates with right normal heel strike and toe off, increased pain left heel standing. General: Yes no CVA tenderness Back/Spine/Pelvis Other: Limited lumbar ROM due to pain. Bending forward, lumbar extension and flexion aggravates her pain to moderate degree. Loading test is positive for pain increase in the bilateral lumbar spine, worse on the left. Demonstrates 5/5 strength of quadriceps bilaterally as well as 4/5 left and 5/5 right flexion/dorsiflexion of feet against resistance. 2+ pedal pulses bilaterally. No groin pain with I/E hip rotations bilaterally. Isaias's and Stinchfield test reproduce lateral hip pain but not back pain. Back: no CVA tenderness Cervical Spine: cervical ROM normal, cervical muscular tenderness, Cervical spine tenderness and No step off deformity Thoracic/Lumbar Spine: thoracic and lumbar spine normal to inspection, Thoracic/lumbar spine scar(s) (lower back well healed scar), Lasegue's sign positive on the left and localized, pain with thoraco-lumbar ROM, paraspinal muscle tenderness, thoraco-lumbar ROM limited with forward flexion and with lateral flexion to the left (limited by pain), No thoracic spinal tenderness, lumbar spinal tenderness (L4-S1) and straight leg raise positive left at 40 degrees and at 50 degrees Pelvis: buttock tenderness on the left Sacroiliac joints: bilaterally tender to palpation Sacrum: tenderness Extrem General: Yes no clubbing, cyanosis or edema and Yes no calf tenderness Results Reviewed Results Reviewed: MR LUMBAR SPINE WITHOUT AND WITH CONTRAST 01/11/22 CLINICAL INFORMATION: Spondylosis. Left lower extremity radiculopathy. Low back pain. Weakness. TECHNIQUE: MRI of the lumbar spine was obtained using routine sequences with and without contrast. Intravenous contrast: Gadavist 9 mL. FINDINGS: There are post laminectomy changes at the L4 through the L5 levels which may be due to prior untethering of the abnormal low-lying cord, as a thickened fatty filum is visible within the distal aspect of the thecal sac at the S2 level. 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 The cord is abnormally low-lying. There is a small syrinx measuring under 0.2 cm in transverse diameter which measures approximately 1 cm craniocaudal at the lower L1 level. 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 The conus tip terminates at the dorsal L4 level to the left of midline along the dorsal aspect of the thecal sac. The cauda equina nerve roots are unremarkable. There is no pathologic intradural enhancement on postcontrast imaging. No paraspinal soft tissue fluid collections are seen. The L1-L2, L2-L3, L3-L4, and L4-L5 discs are fairly well-hydrated. No focal disc protrusion or central canal stenosis is evident at these levels. There is a very mild retrosubluxation at the L4-L5 level. At the L5-S1 level, there is a grade 2 anterolisthesis with severe disc space narrowing and disc desiccation with chronic endplate changes. Unroofed bulging disc present without a focal protrusion. The foramina are widely patent. No central canal stenosis. IMPRESSION: Chronic postoperative changes which may be due to prior untethering of the cord due to a thickened fatty filum partially visualized at the lower sacral levels. Abnormal low-lying conus tip terminating along the dorsal margin of the thecal sac at the L4 level to the left of midline. 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 Small syrinx within the cord at the L1 level. Moderate chronic spondylosis and grade 2 anterolisthesis at the L5-S1 level without central canal stenosis or foraminal narrowing. XR LUMBOSACRAL SPINE 02/22/24 CLINICAL INFORMATION: Acute right-sided low back pain COMPARISON: MRI from 01/11/2022 TECHNIQUE: AP and lateral views of lumbar spine FINDINGS: Patient status post L4-L5 laminectomy. There is narrowing of L4-L5 intervertebral disc space and there is fusion of L5-S1 and grade 2 anterior listhesis of L5 over S1. IMPRESSION: Postsurgical changes with grade 2 anterolisthesis of L5 over S1. Assessment & Plan Assessment & Plan (1) Lumbar spondylosis: Code(s): M47.816 - Spondylosis without myelopathy or radiculopathy, lumbar region Category: Medical (2) Back muscle spasm: Code(s): M62.830 - Muscle spasm of back Category: Medical (3) Lumbar radiculopathy: Code(s): M54.16 - Radiculopathy, lumbar region Category: Medical (4) Spina bifida occulta: Code(s): Q76.0 - Spina bifida occulta Category: Medical (5) Tethered spinal cord: Code(s): Q06.8 - Other specified congenital malformations of spinal cord Category: Medical (6) Spondylolisthesis of lumbosacral region: Code(s): M43.17 - Spondylolisthesis, lumbosacral region Category: Medical Plan I will obtain an updated MRI to evaluate the patient's chronic low back pain and any associated radiculopathy progression. Cyclobenzaprine will be prescribed to assist with muscle spasms at bedtime. An emphasis will be placed on potentially restarting physical therapy to regain baseline functional status, improve core, strength and flexibility. Patient will return to the clinic to discuss results of the MRI findings when it is done and consider interventional therapy as indicated. Patient was informed and verbally consented to the use of an ambient scribe for clinic note documentation during this visit. Orders: Orders MR lumbar spine wo con Today M43.17 - Spondylolisthesis, lumbosacral region, M54.16 - Radiculopathy, lumbar region, Q06.8 - Other specified congenital malformations of spinal cord, Q76.0 - Spina bifida occulta Medications: New cyclobenzaprine 5 mg PO BEDTIME PRN 30 tabs 0RF muscle spasm M47.816 - Spondylosis without myelopathy or radiculopathy, lumbar region, M54.16 - Radiculopathy, lumbar region, M62.830 - Muscle spasm of back Patient Instructions: - Schedule and attend the MRI appointment as soon as it is approved. - Start taking cyclobenzaprine at bedtime as prescribed for muscle relaxation. - Return to discuss MRI results and adjust treatment plans accordingly. - Consider engaging in mild physical activities as tolerated. - Seek immediate care if experiencing worsening symptoms or adverse effects from medication. Coding Level of Care Code Est Pt Level 4 (92109) Complex EM visit Add On G2211 Diagnoses Lumbar spondylosis M47.816 Back muscle spasm M62.830 Lumbar radiculopathy M54.16 Spina bifida occulta Q76.0 Tethered spinal cord Q06.8 Spondylolisthesis of lumbosacral region M43.17
[2025-01-26 09:43] VITALS: BP 132/82; PULSE 58; O2SAT 99; BMI 38.0
--- OUTSIDE RECORDS SUMMARY | 2025-01-26 10:22 | XMS_ITS | Clinical Summary ---
Author Organization [facility] Address [address] [place] [address] Care Team Providers Care Gravel Hauler Name Role Phone Name, Dale Primary Care Provider [phone] Allergies Active Allergy Reactions Criticality Noted Date [...] series) 2049 HIV Screening Completed 11/09/2020 Insurance [facility] [place] [id number] Advance Directives * Full Code (Latest Code Status on File) Date Activated Date Inactivated Comments 03/25/2020 6:05 AM 03/25/2020 1:50 PM * Full Code Date Activated Date Inactivated Comments 06/27/2018 6:22 AM 06/27/2018 11:44 AM Care Teams Gravel Hauler Relationship Specialty Start Date End Date NameDale [address] [place] [address] PCP - General 04/12/17
--- OUTSIDE RECORDS SUMMARY | 2025-01-26 10:22 | XMS_ITS | Encounter Summary ---
Author Organization [facility] Address [address] [place] [address] Care Team Providers Care Pai Gow Manager Name Role Phone Name, Dale SHELBY Primary Care Provider [phone] Reason for Visit * Reason Onset Date Comments Results 12/25/2023 Encounter Details Date Type Department Care Team (Late st Contact Info) Description 12/25/2023 Telephone [facility] [address] [place], [place] [phone] Name, MD Dale [address] [place], [place] [phone] Results Social History Tobacco Use Types Packs/Day [...] documented as of this encounter Care Teams Pai Gow Manager Relationship Specialty Start Date End Date Name, MD Dale [address] [place] [address] PCP - General Family Medicine 09/24/18 documented as of this encounter
--- OUTSIDE RECORDS SUMMARY | 2025-01-26 10:22 | XMS_ITS | Encounter Summary ---
Author Organization [employer] Address [address] [facility] 7t [place] [address] Care Team Providers Care Breast Surgeon Name Role Phone Name, Dale SHELBY Primary Care Provider [phone] Reason for Visit * Reason Comments Med Refill Encounter Details Date Type Department Care Team ([facility] st Contact Info) Description 01/22/2024 Refill [facility] [address] [place], [place] [phone] [facility] [address] [place], [place] [phone] Impacted cerumen of right ear Social History [...] documented as of this encounter Care Teams Breast Surgeon Relationship Specialty Start Date End Date Name, MD Dale [address] [place] [address] PCP - General Family Medicine 09/24/18 documented as of this encounter
--- OUTSIDE RECORDS SUMMARY | 2025-01-26 10:22 | XMS_ITS | Referral Summary ---
Author Organization [facility] Address [address] [place] [address] Care Team Providers Care Restaurant Delivery Driver Name Role Phone Name, Dale Primary Care Provider [phone] Allergies Active Allergy Reactions Criticality Noted Date [...] 6:22 AM 06/27/2018 11:44 AM Care Teams Restaurant Delivery Driver Relationship Specialty Start Date End Date Name, Dale [address] [place] [address] PCP - General 04/12/17
--- OUTSIDE RECORDS SUMMARY | 2025-01-26 10:23 | XMS_ITS | Encounter Summary ---
Author Organization [employer] [facility] Address [address] [facility] 7 [place] [address] Care Team Providers Care Moving Picture Operator Name Role Phone Name, Dale SHELBY Primary Care Provider [phone] Reason for Visit * Reason Comments Med Refill Encounter Details Date Type Department Care Team (Late st Contact Info) Description 02/08/2023 Refill [facility] [address] [place], [place] [phone] Name, MD Dale [address] [place], [place] [phone] Spina bifida occulta Social History Tobacco Use [...] occulta documented in this encounter Care Teams Moving Picture Operator Relationship Specialty Start Date End Date Name, MD Dale [address] [place] [address] PCP - General Family Medicine 09/24/18 documented as of this encounter
--- OUTSIDE RECORDS SUMMARY | 2025-01-26 10:23 | XMS_ITS | Encounter Summary ---
Author Organization [employer] [facility] Address [address] [facility] 7t [place] [address] Care Team Providers Care Sales Representative Door To Door Name Role Phone NameDale MD Primary Care Provider [phone] Encounter Details Date Type Department Care Team ([facility] st Contact Info) Description 02/23/2023 Abstract [facility] [address] [place], [place] [phone] NameDale MD [address] [place] [address] Social History Tobacco Use Types Packs/Day Years [...] on filedocumented in this encounter Care Teams Sales Representative Door To Door Relationship Specialty Start Date End Date NameDale MD [address] [place] [address] PCP - General Family Medicine 09/24/18 documented as of this encounter
--- OUTSIDE RECORDS SUMMARY | 2025-01-26 10:23 | XMS_ITS | Clinical Summary ---
Author Organization [employer] [facility] Address [address] [place] [phone] Phone Care Team Providers Care Highway Maintainer Name Role Phone Unknown, Unknown Primary Care Provider Nate carrera Social History Tobacco Use Types Packs/Day Years Used Date Smoking Tobacco: Never Assessed Sex and Gender Information Value Date Recorded Sex Assigned at Not on file Gender Identity Not on file Sexual Orientation Not on file Plan of Treatment Not on file Medical Devices Not on file Care Teams Highway Maintainer Relationship Specialty Start Date End Date Unknown, Unknown, PCP - General 10/04/17 Additional Source Comments The information contained in this document represents components of the legal health record. It is not the complete legal health record.[facility]
--- OUTSIDE RECORDS SUMMARY | 2025-01-26 10:23 | XMS_ITS | Clinical Summary ---
Author Organization [facility] Address [address] [place] [address] Care Team Providers Care Enterprise Resource Analyst Name Role Phone Unavailable Primary Care Provider [...] Adults 18 yrs or above (or HM Modifier)([facility]) 1974 Hepatitis C Virus Infection in Adolescents and Adults: Screening (or Modifier) ([facility]) [address] [facility] Screening Reminder: Mariah yoder for all adults ([facility]) 1992 Tobacco Smoking Cessation: i n Adults excluding Women: Behavioral and Pharmacotherapy Interventions ([facility]) 1992 DTaP/Tdap/Td Vaccines ([facility]) (1 - Tdap) 1993 Cervical Cancer Screenin 1-65 yrs of age (or Modifier) 1995 Cervical Cancer Screening: P ap every 3 yrs pts age 21-65 1995 Cervical Cancer: Pap Screeni ng with Modifier timing ([facility]) 1995 Cervical Cancer: hrHPV alone or with cotesting Pap for Pts 30-65yrs screening every 5yrs ([facility]) 1995 Colorectal Cancer Screening 45 -75 Yrs (or HM Modifier ) 2019 Colorectal Cancer: FLEXIBLE SIGMOIDOSCOPY Screening every 5 yrs 2019 Colorectal Cancer: Fecal Imm unochemical Test (FIT) Annually [facility] 2019 Colorectal Cancer: High-sens itivity gFOBT Screening Annually [facility] 2019 Colorectal Cancer: Stool Col oguard Screening every 3 yrs 2019 Colorectal Cancer:CT Colonography Screening every 5 yr s 2019 Lipid Screening: Every 5 yrs for Women aged 45+ (or HM Modifier) ([facility]) 2020 COVID-19 Vaccine Screening: Initial Series and Booster Status ([facility]) (2023- season) 2024 Breast Cancer: Screening Mariah ualltaniya age 50-74 yrs (or HM Modifier)([facility]) 2024 Pneumococcal Vaccination Scr eening: Patients 50+ yrs of age ([facility]) (1 of 1 - PCV) 2024 Zoster/Shingles Vaccine Seri es Screening: Adults aged 18+ yrs (or HM Modifiers)([facility]) (1 of 2) 2024 Flu Vaccination: Yearly for ages 18mos through 64 years (or Modifier)([facility]) 04/24/2025 Medical Devices Not on file
--- OUTSIDE RECORDS SUMMARY | 2025-01-26 10:23 | XMS_ITS | Encounter Summary ---
Author Organization [employer] Address [address] [facility] 7t [place] [address] Care Team Providers Care Director Of Tax Services Name Role Phone Name, Dale SHELBY Primary Care Provider [phone] Encounter Details Date Type Department Care Team ([facility] st Contact Info) Description 07/09/2024 Orders Only [facility] [address] [place] [address] Provider, MD Jon Social History Tobacco Use [...] documented as of this encounter Care Teams Director Of Tax Services Relationship Specialty Start Date End Date Name, MD Dale [address] [place] [address] PCP - General Family Medicine 09/24/18 documented as of this encounter
--- OUTSIDE RECORDS SUMMARY | 2025-01-26 10:23 | XMS_ITS | Encounter Summary ---
Author Organization [employer] Address [address] [place] [address] 7 [place] [address] Care Team Providers Care Umbrella Frame Maker Name Role Phone Name, Dale SHELBY Primary Care Provider [phone] Reason for Visit * Reason Onset Date Comments Appointment Request 01/17/2023 Derm Follow Up Encounter Details Date Type Department Care Team ([facility] st Contact Info) Description 01/17/2023 Telephone [facility] [address] [place], [place] [phone] Name, MD Dale [address] [place], [place] [phone] Appointment Request (Derm Follow Up) Social History [...] to Cera Ve cream results. *Patient speaks [place]ese documented in this encounter Plan of Treatment Not on file documented as of this encounter Visit Diagnoses Not on filedocumented in this encounter Care Teams Umbrella Frame Maker Relationship Specialty Start Date End Date Name, MD Dale [address] [place] [address] PCP - General Family Medicine 09/24/18 documented as of this encounter
--- OUTSIDE RECORDS SUMMARY | 2025-01-26 10:23 | XMS_ITS | Clinical Summary ---
Author Organization [email or web address] Address [address] [facility] 7t [place] [address] Care Team Providers Care Revenue Collector Name Role Phone Name, Dale SHELBY Primary Care Provider [phone] Allergies Active Allergy Reactions Criticality Noted Date [...] (eight) hours. 90 capsule 11 01/22/20 24 Active Diclofenac Sodium 1 % gel Apply thin layer by topical route (quantity as directed on package insert) to affected area of pain 3 times daily as needed. 50 g 3 07/12/20 24 Active meloxicam (Mobic) 15 MG tabletIndicatio [...] Description 01/05/2025 11:30 AM EDT Office Visit [facility] [address] [place] [address] Name, MD Dale Spina bifida occulta (Primary Dx); Chronic pain syndrome; Encounter for immunization; Vitamin D deficiency; Screening for cholesterol level 01/05/2025 Travel 01/01/2025 Telephone [facility] [address] [place] [address] Thea Cutler MA chartprep from Last 3 [...] - 19+ 3-dose series) 1993 COVID-19 Vaccine ( - season) 2024 07/18/2021, 06/27/2021 Influenza Vaccine (#1) 2024 , 07/07/2022, 07/04/2021, Additional history exists Zoster Vaccines (1 of 2) 2024 Depression Screening 12/23/2024 12/24/2023, 12/24/19 24 SDOH Screening 12/23/2024 12/24/2023 Alcohol/Substance Use Screening 04/04/2025 04/04/2024 Tobacco Screening 01/05/2026 01/05/2025 Mammogram 01/08/2027 01/08/2025, 12/23, 01/08/2025, Additional history exists Colonoscopy 12/15/2027 12/14/2022 Colorectal Cancer Screening 12/15/2027 [...] Procedure Name Priority Date/Time Associated Diagnosis Comments CBC WITH AUTO DIFFERENTIAL Routine 01/06/2025 9:44 AM EDT Chronic pain syndrome LIPID PANEL, STANDARD Routine 01/06/2025 8:44 AM EDT Screening for cholesterol level VITAMIN D,25-OH,TOTAL,IA Routine 01/06/2025 8:44 AM EDT Vitamin D deficiency BASIC METABOLIC PANEL Routine 01/06/2025 8:44 AM EDT Chronic pain syndrome HM PAP/HPV Routine 11/20/2023 11:02 AM EST HM COLONOSCOPY Routine 12/14/2022 ZZZ HISTORICAL HEPATITIS C AB W/REFL TO HCV RNA, QN, PCR Routine 11/09/2020 9:53 AM EST HIV 1/2 ANTIGEN/ANTIBODY, FOURTH GENERATION W/RFL Routine 11/09/2020 9:53 AM EST from Last 3 Months or Most Recently Relevant to Health Maintenance Results * (ABNORMAL) CBC auto differential (01/06/2025 9:44 AM EDT) White Blood Count 8.0 4.8 - 10.8 X10*3/uL [facility] Red Blood Count 4.36 4.20 - 5.50 X10*6/uL [facility] Hemoglobin 13.7 12.0 - 16.0 g/dl [facility] Hematocrit 41.3 37.0 - 47.0 % [facility] Mean Corpuscular Volume 94.7 80.0 - 98.0 fL [facility] Mean Corpuscular Hemoglobin 31.4 27.0 - 33.0 pg [facility] Mean Corpuscular HGB Conc 33.2 31.0 - 35.0 g/dl [facility] Red Cell Distribution Width 13.5 11.0 - 16.0 % [facility] Platelet Count 248 160 - 400 X10*3/uL [facility] Mean Platelet Volume 11.9 9.4 - 12.3 fL [facility] Neutrophils Percent Auto 69.9 45 - 73 % [facility] Imm Gran Pct Auto 0.4 0.0 - 0.4 % [facility] Lymphocytes Percent Auto 18.4(L) 20 - 40 % [facility] Monocytes Percent Auto 8.1 2 - 11 % [facility] Eosinophils Percent Auto 2.6 0 - 4 % [facility] Basophils Percent Auto 0.6 0 - 2 % [facility] NRBC Pct Auto 0.0 0.0 - 0.2 /100WBC [facility] Neutrophils Absolute Auto 5.6 2.0 - 8.3 x10*3/uL [facility] Imm Gran Abs Auto 0.03 0.00 - 0.03 X10*3/uL [facility] Lymphocytes Absolute Auto 1.5 1.2 - 4.9 X10*3/uL [facility] Monocytes Absolute Auto 0.6 0.1 - 1.2 X10*3/uL [facility] Eosinophils Absolute Auto 0.2 0.0 - 0.4 X10*3/uL [facility] Basophils Absolute Auto 0.1 0.0 - 0.2 X10*3/uL [facility] NRBC Abs Auto 0.000 0.0 - 0.012 X10*3/uL [facility] Blood Venous blood specimen / Unknown 01/06/2025 9:44 AM EDT 01/06/2025 11:02 AM EDT us Dale Batres MD LAB BLOOD ORDERABLES Final Resul t [facility] [address] [place] [address] [phone] * Vitamin D, 25-Hydroxy, Total, Immunoassay (01/06/2025 8:44 AM EDT) Vitamin D 25-OH Total 38.0 >30 ng/mL [facility] Comment: Health Based Reference Values*< 20 ??ng/mL ??Bjowuiajv45-78 ng/mL ??Insufficient> 30 ??ng/mL ??Sufficient*Shalini MALIN. N Engl J Med. 2007;357:266-280There is no well-established upper level of normal vitamin Dlevels. Some laboratories use 50 ng/mL as an upper limit ofnormal. However, toxicity is patient-dependent and may occurat any level. Careful correlation with the patient'spresentation is necessary and, if there is concern forvitamin D toxicity, treatment should be consideredirrespective of the serum level.Care must be taken in interpreting Vitamin D results fromdifferent laboratories and methodologies. ??Published datademonstrated that results from patients undergoinghemodialysis may show a negative bias when tested withvarious automated 25-OH vitamin D assays when compared toLC- MS/MS.When testing samples from patients whose predominant form ofVitamin D is Vitamin D2, such as patients receiving VitaminD2 supplementation, results that are subtherapeutic shouldbe confirmed with another method such as LC-MS/MS. Blood Venous blood specimen / Unknown 01/06/2025 8:44 AM EDT 01/06/2025 11:02 AM EDT us Dale Name LAB BLOOD ORDERABLES Final Resul t [facility] [address] [place] [phone] * (ABNORMAL) Lipid Panel, Standard (01/06/2025 8:44 AM EDT) Triglycerides 116 <150 mg/dL [facility] Comment:Desirable Triglyceri de: less than 150 mg/dLBorderline High Triglyceride 150-199 mg/dLHigh Triglyceride: 200-499 mg/dLVery High Triglyceride: greater than or equal to 5OO mg/dL Cholesterol 225(H) <200 mg/dL [facility] Comment:Desirable Cholestero l: less than 200 mg/dLBorderline High Cholesterol: 200-239 mg/dLHigh Cholesterol: greater than 239 mg/dL LDL Cholesterol Calculated 146(H) <100 mg/dL [facility] Comment:Desirable LDL: less than 100 mg/dLNear Optimal/Above Optimal LDL: 110- 129 mg/dLBorderline High LDL: 130-159 mg/dLHigh LDL: 160-189 mg/dLVery High LDL: greater than or equal to 190 mg/dL HDL Cholesterol 56 >40 mg/dL [facility] Comment:Desirable HDL: great er than 40 mg/dL Note: This HDL assay may give artificially low results in patients with liver disease. Blood Venous blood specimen / Unknown 01/06/2025 8:44 AM EDT 01/06/2025 11:02 AM EDT us Dale Name LAB BLOOD ORDERABLES Final Resul t [facility] [address] [place] [phone] * (ABNORMAL) Basic Metabolic Panel (01/06/2025 8:44 AM EDT) Sodium 140 135 - 145 mmol/L [facility] Potassium 4.1 3.3 - 5.1 mmol/L [facility] Chloride 108 96 - 108 mmol/L [facility] Carbon Dioxide 27 22 - 29 mmol/L [facility] Anion Gap 9(L) 12 - 20 [facility] Urea Nitrogen (BUN) 18(H) 9 - 16 mg/dL [facility] Creatinine, Serum 0.72 0.5 - 1.4 mg/dL [facility] Estimated Glomerular Filt Rate >60 [facility] Comment:Chronic Kidney Disea se: Estimated GFR < 60 mL/min/1.28t0Lodxme Kidney Disease: Estimated GFR < 15 mL/min/1.73m2 Glucose 88 60 - 115 mg/dL [facility] Calcium 9.2 8.4 - 10.2 mg/dL [facility] Blood Venous blood specimen / Unknown 01/06/2025 8:44 AM EDT 01/06/2025 11:02 AM EDT us Dale Batres MD LAB BLOOD ORDERABLES Final Resul t Performing Organization Address [facility]/ZIP Co de Phone Number [facility] [address] [place] [address] [phone] * HM PAP/HPV (11/20/2023 11:02 AM EST) Historical Provider HEALTH MAINTENANCE Final Result * (ABNORMAL) Colonoscopy (12/14/2022) Colonoscopy Abnormal( A) Normal Comment:Repeat colonoscopy i n 5 years due to hx of advanced adenoma Historical Provider HEALTH MAINTENANCE Final Result * HEPATITIS C AB W/REFL TO HCV RNA, QN, PCR (11/09/2020 9:53 AM EST) HEPATITIS C ANTIBODY NON-REACT [facility] NON-REACT [facility] INDEX 0.02 <1.00 [facility] Comment: ?? HCV antibody was non-reactive. There is no laboratory ?? evidence of HCV infection. ?? In most cases, no further action is required. However, if recent HCV exposure is suspected, a test for HCV RNA (test code 55890) is suggested. ?? For additional information please refer to http://education.[employer]/faq/YTJ73y7 (This link is being provided for informational/ educational purposes only.) ?? 11/09/2020 9:53 AM EST us Dale Batres MD HISTORICAL/NON ORDERABLE LABS Fi nal Result Performing Organization Address City/[facility]/ZIP Co de Phone Number [facility] [address] * HIV 1/2 ANTIGEN/ANTIBODY,FOURTH GENERATION W/RFL (11/09/2020 9:53 AM EST) Pathologist [facility] [place] HIV-1/2 ANTIGEN AND ANTIBODIES, 4TH GENERATION W/ REFLEX NON-REACT [facility] NON-REACT [facility] Comment: HIV-1 antigen [...] ? For additional information please refer to http://education.[employer]/faq/PLS801 (This link is being provided for informational/ educational purposes only.) ? The performance of this assay has not been clinically validated in patients less than 2 years old. ?? 11/09/2020 9:53 AM EST us Dale Batres MD LAB BLOOD ORDERABLES Final Resul t [facility] [address] from Last 3 Months or Most Recently Relevant to Health Maintenance Insurance [employer] < 65 [place] [id number] [employer] < 65 [place] [id number] Care Teams Revenue Collector Relationship Specialty Start Date End Date Name, MD Dale [address] [place] [phone] PCP - General Family Medicine 09/24/18
--- OUTSIDE RECORDS SUMMARY | 2025-01-26 10:23 | XMS_ITS | Encounter Summary ---
Author Organization [facility] Address [address] [place] [address] 7 [place] [address] Care Team Providers Care Superintendent Generating Plant Name Role Phone Name, Dale SHELBY Primary Care Provider [phone] Encounter Details Date Type Department Care Team (Latest Contact Info) Description 10/09/2018 Abstract [facility] CONVERSIONS Dental, Provider, DDS Social History [...] on filedocumented in this encounter Care Teams Superintendent Generating Plant Relationship Specialty Start Date End Date Name, MD Dale [address] [place] [phone] PCP - General Family Medicine 09/24/18 documented as of this encounter
--- OUTSIDE RECORDS SUMMARY | 2025-01-26 10:23 | XMS_ITS | Clinical Summary ---
Author Organization [address] [facility] Address [address] [place] [address] Phone Care Team Providers Care Licensed Audiologist Name Role Phone Name, Dale SHELBY Primary Care Provider [phone] Allergies Active Allergy Reactions Criticality Noted Date Comments Acetaminophen 02/25/2016 Desoxycorticosterone 02/22/2024 Oxycodone 02/25/2016 Other Reaction(s): nausea, rashes, vomiting Other reaction(s): nausea, rashes, vomiting Oxycodone-Acetaminophen Nausea And Vomiting,Dizziness 09/30/2015 Numbness L arm Other reaction(s): Not Indicated, Vomiting Numbness L arm Medications tiZANidine (ZANAFLEX) 4 mg tablet Take 1 tablet (4 mg total) by mouth every 8 (eight) hours if needed. 2 Active cholecalciferol (VITAMIN D-3) 50 mcg (2,000 unit) capsule Take by mouth. Activ e THIAMINE HCL, VITAMIN B1, ORAL Take by mouth. Active meloxicam (MOBIC) 15 mg tablet TAKE 1 TABLET BY MOUTH EVERY DAY NEEDED FOR SEVERE PAIN FOR 30DAYS. 2 Active ibuprofen (ADVIL,MOTRIN) 600 mg tablet Take 800 mg by mouth every 8 hours as needed. Active gabapentin (NEURONTIN) 100 mg capsule 4 Active omeprazole (PriLOSEC) [address] capsule 4 Active ceramides cream (CERAVE) cream moisturizing cream Apply 1 Application topically. 3 Active cyclobenzaprine (FLEXERIL) 10 mg tablet See Instructions, PRN Other, 10 mg By Mouth Every 8 hours as needed for muscle spasm., # 42 tablet, 0 Refills, Maintenance, 09/10/14 10:13:34 AM EST, Tablet 4 Active ergocalciferol (Vitamin D2) 1,250 mcg (50,000 unit) capsule Take 50,000 Int'l Units by mouth. 3 Active diclofenac (VOLTAREN) 1 % topical gel Apply thin layer by topical route (quantity as directed on package insert) to affected area of pain 3 times daily as needed. 4 Active docusate sodium (COLACE) 100 mg capsule See Instructions, 1 capsule By Mouth 2 times a day as needed for constipation., # 28 capsule, 0 Refills, Maintenance, 09/10/14 10:14:07 AM EST, Capsule 4 Active ketoconazole (NIZORAL) 2 % shampoo Apply topically. 3 Active phenazopyridine (PYRIDIUM) 200 mg tablet Take 1 tablet (200 mg total) by mouth. 3 Active clotrimazole-bet amethasone (LOTRISONE) 1-0.05 % cream Apply topically 2 (two) times a day. 30 g 1 5 Active metroNIDAZOLE (FLAGYL) 500 mg tablet Take 1 tablet (500 mg total) by mouth 2 (two) times a day for 7 days. Do not use mouth wash or consume alcohol until 48 hours after last dose 14 tablet 5 025 Active Problems Problem Noted Date Diagnosed Date Atypical squamous cell wick es of undetermined significance (ASCUS) on cervical cytology with positive high risk human papilloma virus (HPV) 03/19/2019 Overview (06/27/2024): 05/09/2019 neg colpo Chronic cystitis 09/08/2015 Overview (06/27/2024): Per Dr. 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 Low back pain 04/20/2014 Urge incontinence 01/20/2013 Encounters Date Type Department Care Team Description 01/08/2025 8:30 AM EDT - 01/08/2025 11:59 PM EDT Hospital Encounter Radiology Department - [address] [address] Screening breast examination Discharge Disposition: Home or Self Care 12/19/2024 8:45 AM EDT Office Visit Obstetrics & Gynecology - [address] [id number] Juliet Vance CNM Encounter for well woman exam with routine gynecological exam (Primary Dx); Screening breast examination; Acute vaginitis from Last 3 Months Immunizations Name Administration Dates Next Due Influenza trivalent, with pr eservative (Fluzone; Afluria) 6mo and older 08/16/2015,08/07/2014,07/02/2013 Influenza, Unspecified 07/04/2021 PPD Test 08/16/2015 [email or web address] SARS-CoV-2 COVID-19, mRNA, LNP-S, preservative free 07/18/2021,06/27/2021 [...] History Medical History Relation Name Comments Other: guillain barre Brother Colon cancer Father 78 Dementia Father [...] 06/25/2024 9:39 AM EDT Plan of Treatment Health Maintenance Due Date Last Done Comments Hepatitis B Vaccines (1 of 3 - 19+ 3-dose series) 1993 Colorectal Cancer Screening: Colonoscopy 09/02/2022 Medicare Annual Wellness Visit 09/02/2022 Social Influencers of Health Screening 09/02/2022 COVID-19 Vaccine ( season) 2024 07/18/2021, 06/27/2021 Zoster Vaccines (1 of 2) 2024 Depression Screening 12/23/2024 12/24/2023 Influenza Vaccine (Season Ended) 2025 07/06/2023, 07/07/2022, 07/04/2021, Additional history exists Breast Cancer Screening 01/08/2027 01/09/20, 09/01/2023, 08/26/2022, Additional history exists Cervical Cancer Screening: HPV 11/20/2028 11/20/2023 Cholesterol Screening (Lipid Panel) 01/06/2030 01/06/2025, 01/13/2015 DTaP,Tdap,and Td Vaccines (3 - Td or Tdap) 07/06/2033 07/06/2023, 01/20/2013 HIV Screening Completed 11/09/2020, 08/02/2020 Hepatitis C Screening Completed 11/27/2022 Pneumococcal Vaccine: 50+ Years Completed 01/05/2025 Pneumococcal Vaccine: Pediatrics (0 to 5 Years) and At-Risk Patients (6 to 64 Years) Aged Out 01/05/2025 No longer eligible based on patient's age to complete this topic HIB Vaccines Aged Out No longer eligi [...] Procedure Name Priority Date/Time Associated Diagnosis Comments MG MAMMO DIGITAL SCREENING W ALVARO BILAT Routine 01/08/2025 8:40 AM EDT Screening breast examination TRICHOMONAS VAGINALIS ANTIGEN Routine 12/19/2024 9:07 AM [...] gynecological exam Acute vaginitis HPV Routine 11/20/2023 HEPATITIS C SCREENING Routine 11/27/2022 HIV SCREENING Routine 08/02/2020 LIPID PANEL Routine 01/13/2015 from Last 3 Months or Most Recently Relevant to Health Maintenance Results * MG Mammo Digital Screening w Alvaro bilat (01/08/2025 8:40 AM EDT) Anatomical Region Laterality Modality Breast Bilateral Mammography 01/08/2025 4:06 PM EDT Impressions 01/08/2025 4:07 PM EDT No mammographic evidence of malignancy. BREAST DENSITY: B - There are scattered areas of fibroglandular density. BI-RADS CATEGORY: 1 - NEGATIVE RECOMMENDATION: Screening bilateral mammogram is recommended in 1 year. MAMMO LOCATION: [facility], [address] [place] [address], [id number], . -------- FINAL REPORT -------- Dictated By: Elizabeth Johnson Dictated Date: 01/08/2025 16:06 ET Assigned Physician: Elizabeth Johnson Reviewed and Electronically Signed By: Elizabeth Johnson Signed Date: 01/08/2025 16:07 ET Workstation ID: [id number] Transcribed By: Self Edit Transcribed Date: 01/08/2025 16:06 ET Narrative 01/08/2025 4:07 PM EDT EXAM: Screening Mammogram CLINICAL: 49 years old, Female, routine annual exam. COMPARISON: 09/01/2023 and as far back as 07/24/2020 ?? TECHNIQUE: Bilateral MLO and CC views were obtained digitally with 3-D mammogram (digital breast tomosynthesis). Computer-aided detection was utilized in evaluation of this exam (CAD). FINDINGS: No new suspicious mass, architectural distortion, or suspicious calcifications. Procedure Note Elizabeth Johnson MD - 01/08/2025 EXAM: Screening Mammogram CLINICAL: 49 years old, Female, routine annual exam. COMPARISON: 09/01/2023 and as far back as 07/24/2020 TECHNIQUE: Bilateral MLO and CC views were obtained digitally with 3-Dmammogram (digital breast tomosynthesis). Computer-aided detection wasutilized in evaluation of this exam (CAD). FINDINGS: No new suspicious mass, architectural distortion, or suspiciouscalcifications. IMPRESSION: No mammographic evidence of malignancy. BREAST DENSITY: B - There are scattered areas of fibroglandular density. BI-RADS CATEGORY: 1 - NEGATIVE RECOMMENDATION: Screening bilateral mammogram is recommended in 1 year. MAMMO LOCATION: [facility], [address] [place] [address], [phone], . -------- FINAL REPORT -------- Dictated By: Elizabeth Johnson Dictated Date: 01/08/2025 16:06 ET Assigned Physician: Elizabeth Johnson Reviewed and Electronically Signed By: Elizabeth Johnson Signed Date: 01/08/2025 16:07 ET Workstation ID: [id number] Transcribed By: Self Edit Transcribed Date: 01/08/2025 16:06 ET us Juliet Vance CNM IMG BI PROCEDURES Final Resul t * Trichomonas vaginalis antigen (12/19/2024 9:07 AM EDT) Trichomonas vaginalis Negative Negative 12/19/2024 4:42 PM EDT [facility] Swab Vaginal structure / Unknown Non-blood Collection / Unknown 12/19/2024 9:07 AM EDT 12/19/2024 3:58 PM EDT us Juliet Vance CNM LAB MICROBIOLOGY - GENERAL OR DERABLES Final Result [facility] [address] [place] [address], * Chlamydia trachomatis and Neisseria gonorrhoeae molecular study (12/19/2024 9:07 AM EDT) [facility] Neisseria gonorrhoeae PCR Negative Negative LAB MOLECULAR DIAGNOSTICS METHOD 12/20/2024 8:40 AM EDT [facility] Chlamydia trachomatis PCR Negative Negative LAB MOLECULAR DIAGNOSTICS METHOD 12/20/2024 8:40 AM EDT [facility] Swab Cervix uteri structure / Unknown Non-blood Collection / Unknown 12/19/2024 9:07 AM EDT 12/19/2024 3:59 PM EDT Juliet HO LAB MICROBIOLOGY - GENERAL OR DERABLES Final Result Performing Organization Address [facility]/ZIP Co de Phone Number [facility] [address] [place] [address], * (ABNORMAL) Wet prep, genital (12/19/2024 9:07 AM EDT) [facility] Clue Cells, Wet Prep Positive(A) Negative 12/19/2024 4:26 PM EDT [facility] Yeast, Wet Prep Negative Negative 12/19/2024 4:26 PM EDT [facility] Trichomonas, Wet Prep Indeterminate Negative 12/19/2024 4:26 PM EDT [facility] Comment:Refer to Trichomonas antigen. Swab Vaginal structure / Unknown Non-blood Collection / Unknown 12/19/2024 9:07 AM EDT 12/19/2024 3:58 PM EDT Juliet HO LAB MICROBIOLOGY - GENERAL OR DERABLES Final Result [facility] [address] [place] [address], * Cervical Cancer Screening: HPV (11/20/2023) [facility] Cervical Cancer Screening: HPV negative, abstracted Historical Provider HEALTH MAINTENANCE Final Result * Hepatitis C Screening (11/27/2022) Pathologist [facility] Hepatitis C Screening abstracted Historical Provider HEALTH MAINTENANCE Final Result * HIV Screening (08/02/2020) Pathologist [facility] HIV Screening abstracted [facility] Provider HEALTH MAINTENANCE Final Result * (ABNORMAL) Lipid panel (01/13/2015) [facility] LDL/HDL Ratio 4 0 - 4 Triglycerides 102 0 - 150 mg/dL Cholesterol 215(A) 0 - 200 mg/dL HDL 59 >=40 mg/dL LDL Cholesterol 136(A) 0 - 100 mg/dL Blood Venous blood specimen / Unknown Result [facility] Provider LAB BLOOD ORDERABLES Cristy l Result from Last 3 Months or Most Recently Relevant to Health Maintenance Insurance [employer] MEDICARE Member Subscriber Plan / Payer (Ef fective 2019-Present) Name:Esperanza Melgar Relation to Subscriber:Self Name:Esperanza Melgar Payer ID:[id number] Group ID:[id number] Type:Not on file Address: [facility] [place] [address] Care Teams Licensed Audiologist Relationship Specialty Start Date End Date Name, MD Dale [address] [place], [place] PCP - General Internal Medicine 07/29/17
--- OUTSIDE RECORDS SUMMARY | 2025-01-26 10:23 | XMS_ITS | Encounter Summary ---
Author Organization [facility] Address [address] [place] [address] Phone Care Team Providers Care Code Clerk Name Role Phone Unknown, Unknown Primary Care Provider Nate carrera Encounter Details Date Type Department Care Team (Latest Contact Info) Description 10/05/2017 Ancillary Orders [facility] [address] [place] [address] [place] [address] [place] DO [address] [place] [address] Syncope, unspecified syncope type Social History Tobacco [...] type documented in this encounter Care Teams Code Clerk Relationship Specialty Start Date End Date Unknown, Unknown, PCP - General 10/04/17 documented as of this encounter Additional Source Comments The information contained in this document represents components of the legal health record. It is not the complete legal health record.[facility]
--- OUTSIDE RECORDS SUMMARY | 2025-01-26 10:23 | XMS_ITS | Encounter Summary ---
Author Organization [facility] Address [address] [place] [address] Care Team Providers Care Manager Operations Research Name Role Phone Name, Dale Primary Care Provider Encounter Details Date Type Department Care Team (Late st Contact Info) Description 08/12/2022 Orders Only [facility] XRay [address] [place], [place] [phone] Nidhi Christian MD [address] [place], [place] [phone] Social History Tobacco Use Types Packs/Day Years [...] filedocumented in this encounter Care Teams Manager Operations Research Relationship Specialty Start Date End Date Name, Dale [address] [place] [address] PCP - General 04/12/17 documented as of this encounter
== END 2025-01-26 10:04 | disposition home or self-care (01) ==
LOC: HO.PMC 09:33
PROVIDERS: PCP Internal Medicine Geriatric Medicine; Referring Provider Internal Medicine Geriatric Medicine; Visit Provider Nurse Practitioner Family
DX: M47.816 Spondylosis without myelopathy or radiculopathy, lumbar region (principal); M62.830 Muscle spasm of back; M54.16 Radiculopathy, lumbar region; Q76.0 Spina bifida occulta; Q06.8 Other specified congenital malformations of spinal cord; M43.17 Spondylolisthesis, lumbosacral region
CPT/HCPCS: 99214; G2211

== ENCOUNTER → 2025-01-26 09:33 | Outpatient (BNVA) | payer OTHER, SELFPAY | PROVIDERS: PCP Internal Medicine Geriatric Medicine; Referring Provider Internal Medicine Geriatric Medicine; Visit Provider Nurse Practitioner Family | DX: M47.816 Spondylosis without myelopathy or radiculopathy, lumbar region (principal); M62.830 Muscle spasm of back; M54.16 Radiculopathy, lumbar region; M43.17 Spondylolisthesis, lumbosacral region; Q76.0 Spina bifida occulta; Q06.8 Other specified congenital malformations of spinal cord | CPT/HCPCS: 99212 ==

== ENCOUNTER 2025-02-04 19:07 | Outpatient (REF) | payer OTHER, SELFPAY ==
--- NOTE | ~2025-02-04 | MR_ITS ---
CLINICAL HISTORY: M54.16 - Radiculopathy, lumbar region MR lumbar spine without gadolinium Comparison: CR/SR - XR LUMBAR SPINE 2-3V - 02/22/24 14:38 EDT Findings: There is grade 2 anterolisthesis at L5-S1 level. Otherwise lumbar alignment is maintained. Vertebral body height is maintained. No acute fracture. 7 mm round lesion in L2 vertebral body the left hyperintense on T2 weighted and inversion recovery images with central hypointensity and seen peripheral hyperintensity on T1 weighted images and this is nonspecific. Degenerative disc disease at the L5-S1 level. Remainder lumbar discs are desiccated but overall maintain normal height. Distal conus is low lying terminating at L3-4. There is a minimal syrinx in the conus/distal cord at the L2-3 level. Bilateral L4 laminectomies. The nerve roots in the thecal sac appears somewhat clumped together raising the possibility of arachnoiditis. No evidence of disc herniation. T12-L1 through L2-3 disc levels demonstrate no significant bulge or significant stenosis. At L3-4 there is minimal disc bulge with no significant stenosis. At L4-5 no significant stenosis. L5-S1 no disc herniation, significant disc bulge or significant stenosis. 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 IMPRESSION: 1. Low lying distal conus medullaris with minimal syrinx in distal cord/conus at the L1-2 level. 2. Postoperative changes at L4-5. Nerve roots in the thecal sac appear somewhat clumped together raising the possibility of arachnoiditis. 3. L5-S1 degenerative disc disease and grade 2 anterolisthesis. 4. No disc herniation or significant stenosis in the lumbar spine. 5. 7 mm nonspecific bone lesion in L2 vertebral body. This document has been electronically signed by: Erika Duong MD on 02/04/2025 20:57:22
--- OUTSIDE RECORDS SUMMARY | 2025-02-04 19:12 | XMS_ITS | Referral Summary ---
Author Organization [facility] Address [address] [place] [address] Care Team Providers Care Tire Cord Weaver Name Role Phone Name, Dale Primary Care Provider [phone] Allergies Active Allergy Reactions Criticality Noted Date [...] 6:22 AM 06/27/2018 11:44 AM Care Teams Tire Cord Weaver Relationship Specialty Start Date End Date Name, Dale [address] [place] [address] PCP - General 04/12/17
--- OUTSIDE RECORDS SUMMARY | 2025-02-04 19:12 | XMS_ITS | Clinical Summary ---
Author Organization [facility] Address [address] [place] [address] Care Team Providers Care Underwriting Intern Name Role Phone Name, Dale Primary Care Provider [phone] Allergies Active Allergy Reactions Criticality Noted Date [...] series) 2049 HIV Screening Completed 11/09/2020 Insurance [facility] [place] [id number] Advance Directives * Full Code (Latest Code Status on File) Date Activated Date Inactivated Comments 03/25/2020 6:05 AM 03/25/2020 1:50 PM * Full Code Date Activated Date Inactivated Comments 06/27/2018 6:22 AM 06/27/2018 11:44 AM Care Teams Underwriting Intern Relationship Specialty Start Date End Date NameDale [address] [place] [address] PCP - General 04/12/17
--- OUTSIDE RECORDS SUMMARY | 2025-02-04 19:12 | XMS_ITS | Encounter Summary ---
Author Organization [employer] Address [address] [place] [address] [address] [place] [address] Care Team Providers Care Automatic Packer Operator Name Role Phone Name, Dale SHELBY Primary Care Provider Reason for Visit * Reason Onset Date Comments Appointment Request 01/17/2023 Derm Follow Up Encounter Details Date Type Department Care Team ([facility] st Contact Info) Description 01/17/[address] [facility] MEDICINE [address] [place], [place] [phone] Name, MD Dale [address] [place], [place] [phone] Appointment Request (Derm Follow Up) Social History [...] up appt. Patient was last seen on 2/27/23 and was asked to callback for f/u appt in regards to Cera Ve cream results. *Patient speaks Tajik documented in this encounter Plan of Treatment Not on file documented as of this encounter Visit Diagnoses Not on filedocumented in this encounter Care Teams Automatic Packer Operator Relationship Specialty Start Date End Date Name, MD Dale [address] [place] [address] PCP - General Family Medicine 09/24/18 documented as of this encounter
--- OUTSIDE RECORDS SUMMARY | 2025-02-04 19:12 | XMS_ITS | Encounter Summary ---
Author Organization [employer] Address [address] [place] [address] [address] [place] [address] Care Team Providers Care Dairy Chemist Name Role Phone NameDale MD Primary Care Provider [phone] Encounter Details Date Type Department Care Team (Late st Contact Info) Description 02/23/2023 Abstract [facility] MEDICINE [address] [place], [place] [phone] Name, MD Dale [address] [place] [address] Social History Tobacco Use Types Packs/Day Years [...] on filedocumented in this encounter Care Teams Dairy Chemist Relationship Specialty Start Date End Date NameDale MD [address] [place] [address] PCP - General Family Medicine 09/24/18 documented as of this encounter
--- OUTSIDE RECORDS SUMMARY | 2025-02-04 19:12 | XMS_ITS | Encounter Summary ---
Author Organization [employer] Address [address] [place] [address] [address] [place] [address] Care Team Providers Care Bus Cleaner Name Role Phone Name, Dale SHELBY Primary Care Provider [phone] Encounter Details Date Type Department Care Team (Latest Contact Info) Description 10/09/2018 Abstract [facility] CONVERSIONS Dental, Provider, DDS Social History Tobacco [...] on filedocumented in this encounter Care Teams Bus Cleaner Relationship Specialty Start Date End Date Name, MD Dale [address] [place] [address] PCP - General Family Medicine 09/24/18 documented as of this encounter
--- OUTSIDE RECORDS SUMMARY | 2025-02-04 19:12 | XMS_ITS | Encounter Summary ---
Author Organization [employer] Address [address] [facility] [address] [place] [address] Care Team Providers Care Coffee Supervisor Name Role Phone Name, Dale SHELBY Primary Care Provider [phone] Reason for Visit * Reason Onset Date Comments Results 12/25/2023 Encounter Details Date Type Department Care Team (Late st Contact Info) Description 12/25/2023 Telephone [facility] MEDICINE [address] [place], [place] [phone] Name, MD Dale [address] [place], [place] [phone] Results Social History Tobacco Use Types Packs/Day [...] documented as of this encounter Care Teams Coffee Supervisor Relationship Specialty Start Date End Date Name, MD Dale [address] [place] [address] PCP - General Family Medicine 09/24/18 documented as of this encounter
--- OUTSIDE RECORDS SUMMARY | 2025-02-04 19:12 | XMS_ITS | Encounter Summary ---
Author Organization [employer] Address [address] [place] [address] Care Team Providers Care Electrical Products Sales Engineer Name Role Phone Name, Dale SHELBY Primary Care Provider [phone] Encounter Details Date Type Department Care Team (Late st Contact Info) Description 07/09/2024 Orders Only [facility] MEDICINE [address] [place] [address] Provider, MD Jon Social History Tobacco Use [...] documented as of this encounter Care Teams Electrical Products Sales Engineer Relationship Specialty Start Date End Date Name, MD Dale [address] [place] [address] PCP - General Family Medicine 09/24/18 documented as of this encounter
--- OUTSIDE RECORDS SUMMARY | 2025-02-04 19:12 | XMS_ITS | Clinical Summary ---
Author Organization [facility] Address [address] [place] [address] Phone Care Team Providers Care Photographic Technician Name Role Phone Name, Dale SHELBY Primary Care Provider [phone] Allergies Active Allergy Reactions Criticality Noted Date [...] a day. 30 g 1 5 Active Active Problems Problem Noted Date Diagnosed Date Atypical squamous cell wick es of undetermined significance (ASCUS) on cervical cytology with positive high risk human papilloma virus (HPV) 03/19/2019 Overview (06/27/2024): 05/09/2019 neg colpo Chronic cystitis 09/08/2015 Overview (06/27/2024): Per Dr. 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 Low back pain 04/20/2014 Urge incontinence 01/20/2013 Encounters Date Type Department Care Team Description 01/08/2025 8:30 AM EDT - 01/08/2025 11:59 PM EDT Hospital Encounter Radiology Department - [address] [address] Screening breast examination Discharge Disposition: Home or Self Care 12/19/2024 8:45 AM EDT Office Visit Obstetrics & Gynecology - [address] [address] Juliet Vance CNM Encounter for well woman exam with routine gynecological exam (Primary Dx); Screening breast examination; Acute vaginitis from Last 3 Months Immunizations Name Administration Dates Next Due Influenza trivalent, with pr eservative (Fluzone; Afluria) 6mo and older 08/16/2015,08/07/2014,07/02/2013 Influenza, Unspecified 07/04/2021 PPD Test 08/16/2015 RF Arrays SARS-CoV-2 COVID-19, mRNA, LNP-S, preservative free 07/18/2021,06/27/2021 [...] exam with routine gynecological exam Acute vaginitis HM HPV Routine 11/20/2023 HM HEPATITIS C SCREENING Routine 11/27/2022 HIV SCREENING [...] is recommended in 1 year. MAMMO LOCATION: [facility], [address] [place] [address], [phone], . -------- FINAL REPORT -------- Dictated By: Elizabeth Johnson Dictated Date: 01/08/2025 16:06 ET Assigned Physician: Elizabeth Johnson Reviewed and Electronically Signed By: Elizabeth Johnson Signed Date: 01/08/2025 16:07 ET Workstation ID: [id number] Transcribed By: Self Edit Transcribed Date: 01/08/2025 [...] is recommended in 1 year. MAMMO LOCATION: [facility], [address] [place] [address], [phone], . -------- FINAL REPORT -------- Dictated By: Elizabeth Johnson Dictated Date: 01/08/2025 16:06 ET Assigned Physician: Elizabeth Johnson Reviewed and Electronically Signed By: Elizabeth Johnson Signed Date: 01/08/2025 16:07 ET Workstation ID: [id number] Transcribed By: Self Edit Transcribed Date: 01/08/2025 16:06 ET Juliet Vance CNM IMG BI PROCEDURES Final Resul t * Trichomonas vaginalis antigen (12/19/2024 9:07 AM EDT) Trichomonas vaginalis Negative Negative 12/19/2024 4:42 PM EDT [facility] Swab Vaginal structure / Unknown Non-blood Collection / Unknown 12/19/2024 9:07 AM EDT 12/19/2024 3:58 PM EDT Juliet Vance CNM LAB MICROBIOLOGY - GENERAL OR DERABLES Final Result [facility] [address] [place] [address], [place] [phone] * Chlamydia trachomatis and Neisseria gonorrhoeae molecular study (12/19/2024 9:07 AM EDT) Neisseria gonorrhoeae PCR Negative Negative LAB MOLECULAR DIAGNOSTICS METHOD 12/20/2024 8:40 AM EDT [facility] Chlamydia trachomatis PCR Negative Negative LAB MOLECULAR DIAGNOSTICS METHOD 12/20/2024 8:40 AM EDT [facility] Swab Cervix uteri structure / Unknown Non-blood Collection / Unknown 12/19/2024 9:07 AM EDT 12/19/2024 3:59 PM EDT [facility] MICROBIOLOGY - GENERAL OR DERABLES Final Result [facility] [address] [place] [address], [place] [phone] * (ABNORMAL) Wet prep, genital (12/19/2024 9:07 AM EDT) [facility] Clue Cells, Wet Prep Positive(A) Negative 12/19/2024 4:26 PM EDT [facility] Yeast, Wet Prep Negative Negative 12/19/2024 4:26 PM EDT [facility] Trichomonas, Wet Prep Indeterminate Negative 12/19/2024 4:26 PM EDT [facility] Comment:Refer to Trichomonas antigen. Swab Vaginal structure / Unknown Non-blood Collection / Unknown 12/19/2024 9:07 AM EDT 12/19/2024 3:58 PM EDT [facility] MICROBIOLOGY - GENERAL OR DERABLES Final Result [facility] [address] [place] [address], [place] [phone] * Cervical Cancer Screening: HPV (11/20/2023) Pathologist [facility] Cervical Cancer Screening: HPV negative, abstracted Historical Provider HEALTH MAINTENANCE Final Result * Hepatitis C Screening (11/27/2022) Pathologist [facility] Hepatitis C Screening abstracted Historical Provider HEALTH MAINTENANCE Final Result * Hm HIV Screening (08/02/2020) HIV Screening abstracted Historical Provider HEALTH MAINTENANCE Final Result * (ABNORMAL) Lipid panel (01/13/2015) LDL/HDL Ratio 4 0 - 4 Triglycerides 102 0 - 150 mg/dL Cholesterol 215(A) 0 - 200 mg/dL HDL 59 >=40 mg/dL LDL Cholesterol 136(A) 0 - 100 mg/dL Blood Venous blood specimen / Unknown Historical Provider LAB BLOOD ORDERABLES Cristy l Result from Last 3 Months or Most Recently Relevant to Health Maintenance Insurance [facility] MEDICARE Member Subscriber Plan / Payer (Ef fective 2019-Present) Name:Esperanza Melgar Relation to Subscriber:Self Name:Esperanza Melgar Payer ID:[id number] Group ID:[id number] Type:Not on file Address: [place] [address] [address] [address] Care Teams Photographic Technician Relationship Specialty Start Date End Date Name, MD Dale [address] [place], [place] PCP - General Internal Medicine 07/29/17
--- OUTSIDE RECORDS SUMMARY | 2025-02-04 19:12 | XMS_ITS | Clinical Summary ---
Author Organization [facility] Address [address] [place], [place] [phone] Phone Care Team Providers Care Vp Analytics Name Role Phone Unknown, Unknown Primary Care Provider Nate carrera Social History Tobacco Use Types Packs/Day Years Used Date Smoking Tobacco: Never Assessed Comments Unknown Sex and Gender Information Value Date Recorded Sex Assigned at Not on file Legal Sex Female 3:51 PM EST Gender Identity Not on file Sexual Orientation Not on file Plan of Treatment Not on file Medical Devices Not on file Insurance MEDICARE PART A & B [facility] MEDICARE PART A & B [place] B [facility] PART A & B [facility] MEDICARE PART A & [place] & B Member Subscriber Plan / Payer (Ef fective 2017-Present) Name:Esperanza Mnoique Member ID:[id number] Relation to Subscriber:Self Name:Esperanza Monique Subscriber ID:[id number] Payer ID:[id number] Group ID:Not on file Type:Medicare Address: [employer] [address] A & B Member Subscriber Plan / Payer (Ef fective 2017-Present) Name:Esperanza Monique Member ID:[id number] Relation to Subscriber:Self Name:Esperanza Monique Subscriber ID:[id number] Payer ID:[id number] Group ID:Not on file Type:Medicare Address: [employer] [address] [place] [phone] [facility] MEDICARE PART A & B [employer] MEDICARE PART A & B [facility] Care Teams Vp Analytics Relationship Specialty Start Date End Date Unknown, Unknown, PCP - General 10/04/17 Additional Source Comments The information contained in this document represents components of the legal health record. It is not the complete legal health record.[facility]
--- OUTSIDE RECORDS SUMMARY | 2025-02-04 19:12 | XMS_ITS | Encounter Summary ---
Author Organization [employer] Address [address] [facility] 7 [place] [address] Care Team Providers Care Director Energy Name Role Phone Name, Dale SHELBY Primary Care Provider [phone] Reason for Visit * Reason Comments Med Refill Encounter Details Date Type Department Care Team (Late st Contact Info) Description 02/08/2023 Refill [facility] [address] [place], [place] [phone] Name, MD Dale [address] [place], [place] [phone] Spina bifida occulta Social History Tobacco Use [...] occulta documented in this encounter Care Teams Director Energy Relationship Specialty Start Date End Date Name, MD Dale [address] [place] [address] PCP - General Family Medicine 09/24/18 documented as of this encounter
--- OUTSIDE RECORDS SUMMARY | 2025-02-04 19:12 | XMS_ITS | Clinical Summary ---
Author Organization [employer] Address [address] [facility] 7t [place] [address] Care Team Providers Care Paper Coating Supervisor Name Role Phone Name, Dale SHELBY Primary Care Provider [phone] Allergies Active Allergy Reactions Criticality Noted Date Comments Acetaminophen 02/25/2016 Oxycodone 02/25/2016 Other reaction(s): nausea, rashes, vomiting Oxycodone-Acetaminophen Dizziness,Nausea And Vomiting 09/30/2015 Other reaction(s): Not Indicated, Vomiting Numbness L arm Desoxycorticosterone 02/22/2024 Medications thiamine (Vitamin B-1) 100 MG tablet Take 100 mg by mouth in the morning. 7 Active ceramides (CeraVe) moisturizing creamIndications :Seborrheic dermatitis Apply 1 application topically if needed for dry skin. 453 g 3 Active ketoconazole (Nizoral) 2 % shampoo Apply topically 2 (two) times a week. 100 mL 1 3 Active tiZANidine (Zanaflex) 4 MG tablet Take 1 tablet (4 mg) by mouth every 8 (eight) hours if needed for muscle spasms. 84 tablet 3 3 Active gabapentin (Neurontin) 100 MG capsule Take 1 capsule (100 mg) by mouth every 8 (eight) hours. 90 capsule 11 4 Active Diclofenac Sodium 1 % gel Apply thin layer by topical route (quantity as directed on package insert) to affected area of pain 3 times daily as needed. 50 g 3 4 Active meloxicam (Mobic) 15 MG tabletIndication s:Spina bifida occulta TAKE 1 TABLET(15 MG) BY MOUTH IN THE MORNING 30 tablet 2 5 Active omeprazole (PriLOSEC) [address] capsule Take 1 capsule (20 mg) by mouth before breakfast. Do not crush or chew. 30 capsule 11 5 01/06/20 26 Active cholecalciferol (Vitamin D-3) 25 MCG (1000 UT) tabletIndication s:Vitamin D Deficiency Take 1 tablet (25 mcg) by mouth Once per day. 90 tablet 3 5 01/06/20 26 Active Active Problems Problem Noted Date Diagnosed [...] Description 01/05/2025 11:30 AM EDT Office Visit [facility] [address] [place] [address] Name, MD Dale Spina bifida occulta (Primary Dx); Chronic pain syndrome; Encounter for immunization; Vitamin D deficiency; Screening for cholesterol level 01/05/2025 Travel 01/01/2025 Telephone [facility] [address] [place] [address] Thea Cutler MA chartprep from Last 3 Months Immunizations Immunization Administration Dates Next Due Influenza Injectable Quadriv [...] 19+ 3-dose series) 1993 COVID-19 Vaccine ( season) 2024 07/18/2021, 06/27/2021 Influenza Vaccine (#1) 2024 , 07/07/2022, 07/04/2021, Additional history exists Zoster Vaccines (1 of 2) 2024 Depression Screening 12/23/2024 12/24/2023, 12/24/19 SDOH Screening 12/23/2024 12/24/2023 Alcohol/Substance Use Screening [...] Blood Count 8.0 4.8 - 10.8 X10*3/uL [facility] Red Blood Count 4.36 4.20 - 5.50 X10*6/uL [facility] Hemoglobin 13.7 12.0 - 16.0 g/dl [facility] Hematocrit 41.3 37.0 - 47.0 % [facility] Mean Corpuscular Volume 94.7 80.0 - 98.0 fL [facility] Mean Corpuscular Hemoglobin 31.4 27.0 - 33.0 pg [facility] Mean Corpuscular HGB Conc 33.2 31.0 - 35.0 g/dl [facility] Red Cell Distribution Width 13.5 11.0 - 16.0 % [facility] Platelet Count 248 160 - 400 X10*3/uL [facility] Mean Platelet Volume 11.9 9.4 - 12.3 fL [facility] Neutrophils Percent Auto 69.9 45 - 73 % [facility] Imm Gran Pct Auto 0.4 0.0 - 0.4 % [facility] Lymphocytes Percent Auto 18.4(L) 20 - 40 % [facility] Monocytes Percent Auto 8.1 2 - 11 % [facility] Eosinophils Percent Auto 2.6 0 - 4 % [facility] Basophils Percent Auto 0.6 0 - 2 % [facility] NRBC Pct Auto 0.0 0.0 - 0.2 /100WBC [facility] Neutrophils Absolute Auto 5.6 2.0 - 8.3 x10*3/uL [facility] Imm Gran Abs Auto 0.03 0.00 - 0.03 X10*3/uL [facility] Lymphocytes Absolute Auto 1.5 1.2 - 4.9 X10*3/uL [facility] Monocytes Absolute Auto 0.6 0.1 - 1.2 X10*3/uL [facility] Eosinophils Absolute Auto 0.2 0.0 - 0.4 X10*3/uL [facility] Basophils Absolute Auto 0.1 0.0 - 0.2 X10*3/uL [facility] NRBC Abs Auto 0.000 0.0 - 0.012 X10*3/uL [facility] Blood Venous blood specimen / Unknown 01/06/2025 9:44 AM EDT 01/06/2025 11:02 AM EDT us Dale Name LAB BLOOD ORDERABLES Final Resul t [facility] [address] [place] [phone] * Vitamin D, 25-Hydroxy, Total, Immunoassay (01/06/2025 8:44 AM EDT) Vitamin D 25-OH Total 38.0 >30 ng/mL [facility] Comment: Health Based Reference Values*< 20 ??ng/mL ??Qbaymnixe82-07 ng/mL ??Insufficient> 30 ??ng/mL ??Sufficient*Shalini MALIN. N [...] MD LAB BLOOD ORDERABLES Final Resul t [facility] [address] [place] [phone] * (ABNORMAL) Lipid Panel, Standard (01/06/2025 8:44 AM EDT) Triglycerides 116 <150 mg/dL [facility] Comment:Desirable Triglyceri de: less than 150 mg/dLBorderline High Triglyceride 150-199 mg/dLHigh Triglyceride: 200-499 mg/dLVery High Triglyceride: greater than or equal to 5OO mg/dL Cholesterol 225(H) <200 mg/dL [facility] Comment:Desirable Cholestero l: less than 200 mg/dLBorderline High Cholesterol: 200-239 mg/dLHigh Cholesterol: greater than 239 mg/dL LDL Cholesterol Calculated 146(H) <100 mg/dL [facility] Comment:Desirable LDL: less than 100 mg/dLNear Optimal/Above Optimal LDL: 110- 129 mg/dLBorderline High LDL: 130-159 mg/dLHigh LDL: 160-189 mg/dLVery High LDL: greater than or equal to 190 mg/dL HDL Cholesterol 56 >40 mg/dL [facility] Comment:Desirable HDL: great er than 40 mg/dL Note: This HDL assay may give artificially low results in patients with liver disease. Blood Venous blood specimen / Unknown 01/06/2025 8:44 AM EDT 01/06/2025 11:02 AM EDT us Dale Bartes MD LAB BLOOD ORDERABLES Final Resul t Performing Organization Address [facility] de Phone Number [facility] [address] [place] [phone] * (ABNORMAL) Basic Metabolic Panel (01/06/2025 8:44 AM EDT) Sodium 140 135 - 145 mmol/L [facility] Potassium 4.1 3.3 - 5.1 mmol/L [facility] Chloride 108 96 - 108 mmol/L [facility] Carbon Dioxide 27 22 - 29 mmol/L [facility] Anion Gap 9(L) 12 - 20 [facility] Urea Nitrogen (BUN) 18(H) 9 - 16 mg/dL [facility] Creatinine, Serum 0.72 0.5 - 1.4 mg/dL [facility] Estimated Glomerular Filt Rate >60 [facility] Comment:Chronic Kidney Disea se: Estimated GFR < 60 mL/min/1.44e5Tzdgyx Kidney Disease: Estimated GFR < 15 mL/min/1.73m2 Glucose 88 60 - 115 mg/dL [facility] Calcium 9.2 8.4 - 10.2 mg/dL [facility] Blood Venous blood specimen / Unknown 01/06/2025 8:44 AM EDT 01/06/2025 11:02 AM EDT us Dale Batres MD LAB BLOOD ORDERABLES Final Resul t Performing Organization Address [facility] Co de Phone Number [facility] [address] [place] [phone] * PAP/HPV (11/20/2023 11:02 AM EST) Historical Provider HEALTH MAINTENANCE Final Result * (ABNORMAL) Colonoscopy (12/14/2022) Colonoscopy Abnormal( A) Normal Comment:Repeat colonoscopy i n 5 years due to hx of advanced adenoma Historical Provider HEALTH MAINTENANCE Final Result * HEPATITIS C AB W/REFL TO HCV RNA, QN, PCR (11/09/2020 9:53 AM EST) HEPATITIS C ANTIBODY NON-REACT SEBASTIEN NON-REACT SEBASTIEN [facility] INDEX 0.02 <1.00 [facility] Comment: ?? HCV antibody was non-reactive. There is no laboratory ?? evidence of HCV infection. ?? In most cases, no further action is required. However, if recent HCV exposure is suspected, a test for HCV RNA (test code 21417) is suggested. ?? For additional information please refer to http://Xceligent.SiOx/faq/IHE24h6 (This link is being provided for informational/ educational purposes only.) ?? 11/09/2020 9:5 3 AM EST us Dale Name MD HISTORICAL/NON ORDERABLE LABS Fi nal Result [facility] Any[address] * HIV 1/2 ANTIGEN/ANTIBODY,FOURTH GENERATION W/RFL (11/09/2020 9:53 AM EST) HIV-1/2 ANTIGEN AND ANTIBODIES, 4TH GENERATION W/ REFLEX NON-REACT SEBASTIEN NON-REACT SEBASTIEN [facility] Comment: HIV-1 antigen and HIV-1/HIV-2 [...] ? For additional information please refer to http://Xceligent.SiOx/faq/MBD715 (This link is being provided for informational/ educational purposes only.) ? The performance of this assay has not been clinically validated in patients less than 2 years old. ?? 11/09/2020 9:53 AM EST us Dale Batres MD LAB BLOOD ORDERABLES Final Resul t [facility] [address] from Last 3 Months or Most Recently Relevant to Health Maintenance Insurance [facility] ONE CARE < 65 [employer] ONE CARE < 65 * Guarantor: Esperanza Monique Account Type Relation to Patient Date of Phone Billing Address Personal/Family Self [address] [place] [address] Care Teams Paper Coating Supervisor Relationship Specialty Start Date End Date Name, MD Dale [address] [place] [address] PCP - General Family Medicine 09/24/18
--- OUTSIDE RECORDS SUMMARY | 2025-02-04 19:12 | XMS_ITS | Clinical Summary ---
Author Organization [facility] [employer] [facility] lin Address [address] [place] [address] Care Team Providers Care Urology Surgeon Name Role Phone Unavailable Primary Care Provider [...] Adults 18 yrs or above (or HM Modifier)([facility]) 1974 Hepatitis C Virus Infection in Adolescents and Adults: Screening (or Modifier) ([facility]) 1992 [facility] Screening Reminder: Mariah yoder for all adults ([facility]) 1992 Tobacco Smoking Cessation: i n Adults excluding Women: Behavioral and Pharmacotherapy Interventions ([facility]) 1992 DTaP/Tdap/Td Vaccines ([facility]) (1 - Tdap) 1993 Cervical Cancer Screenin 1-65 yrs of age (or Modifier) 1995 Cervical Cancer Screening: P ap every 3 yrs pts age 21-65 1995 Cervical Cancer: Pap Screeni ng with Modifier timing ([facility]) 1995 Cervical Cancer: hrHPV alone or with cotesting Pap for Pts 30-65yrs screening every 5yrs ([facility]) 1995 Colorectal Cancer Screening 45 -75 Yrs (or HM Modifier ) 2019 Colorectal Cancer: FLEXIBLE SIGMOIDOSCOPY Screening every 5 yrs 2019 Colorectal Cancer: Fecal Imm unochemical Test (FIT) Annually [facility] 2019 Colorectal Cancer: High-sens itivity gFOBT Screening Annually [facility] 2019 Colorectal Cancer: Stool Col oguard Screening every 3 yrs 2019 Colorectal Cancer:CT Colonography Screening every 5 yr s 2019 Lipid Screening: Every 5 yrs for Women aged 45+ (or HM Modifier) ([facility]) 2020 COVID-19 Vaccine Screening: Initial Series and Booster Status ([facility]) (2023- season) 2024 Breast Cancer: Screening Mariah ualltaniya age 50-74 yrs (or HM Modifier)([facility]) 2024 Pneumococcal Vaccination Scr eening: Patients 50+ yrs of age ([facility]) (1 of 1 - PCV) 2024 Zoster/Shingles Vaccine Seri es Screening: Adults aged 18+ yrs (or HM Modifiers)([facility]) (1 of 2) 2024 Flu Vaccination: Yearly for ages 18mos through 64 years (or Modifier)([facility]) 04/24/2025 Medical Devices Not on file
--- OUTSIDE RECORDS SUMMARY | 2025-02-04 19:12 | XMS_ITS | Encounter Summary ---
Author Organization [facility] Address [address] [place] [address] Care Team Providers Care Foreign Service Teacher Name Role Phone Name, Dale Primary Care Provider [phone] Encounter Details Date Type Department Care Team (Late st Contact Info) Description 08/12/2022 Orders Only [facility]Ray [address] [place], [place] [phone] Nidhi Christian MD [address] [place], [place] [phone] Social History Tobacco Use Types Packs/Day Years [...] on filedocumented in this encounter Care Teams Foreign Service Teacher Relationship Specialty Start Date End Date Name, Dale [address] [place] [phone] PCP - General 04/12/17 documented as of this encounter
--- OUTSIDE RECORDS SUMMARY | 2025-02-04 19:12 | XMS_ITS | Encounter Summary ---
Author Organization [facility] Address [address] [facility] [address] [place] [phone] Phone Care Team Providers Care Reproduction Technician Name Role Phone Unknown, Unknown Primary Care Provider Nate carrera Encounter Details Date Type Department Care Team (Latest Contact Info) Description 10/05/2017 Ancillary Orders [facility] [address] [place] [address] [place] [address] [place] DO [address] [place] [address] Syncope, unspecified syncope type Social History Tobacco [...] reported. [place] DO CV CARDIAC SERVICES ORDERABLE S Final Result documented in this encounter Visit Diagnoses Diagnosis Syncope, unspecified syncope type Syncope, unspecified syncope type documented in this encounter Care Teams Reproduction Technician Relationship Specialty Start Date End Date Unknown, Unknown, PCP - General 10/04/17 documented as of this encounter Additional Source Comments The information contained in this document represents components of the legal health record. It is not the complete legal health record.[facility]
== END 2025-02-04 19:08 | disposition home or self-care (01) ==
LOC: HO.MRI 19:07
PROVIDERS: Visit Provider Nurse Practitioner Family
DX: M54.16 Radiculopathy, lumbar region (principal); Q76.0 Spina bifida occulta; Q06.8 Other specified congenital malformations of spinal cord
CPT/HCPCS: 72148

== ENCOUNTER → 2025-02-04 19:13 | Outpatient (BNV) | payer OTHER, SELFPAY | PROVIDERS: Visit Provider Specialist | DX: M54.16 Radiculopathy, lumbar region (principal) | CPT/HCPCS: 72148 ==

== ENCOUNTER 2025-02-12 09:06 | Outpatient (AMB) | payer OTHER, SELFPAY ==
--- NOTE | 2025-02-12 09:07 | MHC.OFFVIS ---
Vital Signs 02/12/25 09:11 Height 5 ft Weight 195 lb BMI 38.1 BP 126/79 Blood Pressure Location Lt brachial Position Sitting Pulse 69 Pulse Source Pulse Oximeter Pulse Oximetry (%) 98 Oxygen Delivery Method Room Air Intake Visit Reasons: Discuss MRI Results Intake Note: Pain today 04/02 Executive Pastry Chef Required: Yes Executive Pastry Chef Language: Sewing Machine [employer]bin Winder Services: Executive Pastry Chef Present Executive Pastry Chef Name: Nancy Information Interpreted: non-clinical & clinical Accompanied by: Daughter Allergies oxycodone [OXYCODONE] Allergy (Severe, Verified 02/12/25 09:11) CP/DIZZINESS/VOMITING HPI Comments Details: The patient is a 49-year-old female presenting with chronic back pain with left sided radiculopathy and to discuss recent lumbar MRI results. She reports chronic and persistent pain with radiating symptoms, directly affecting daily activities. The patient states the pain begins from the back and radiates to the left leg, reaching the heel, previously attributed in part to tendinitis and arthritis. Current walking tolerance without exacerbation of symptoms is limited to 30 minutes with assisting devices. The patient's medical history includes congenital spina bifida and a tethered spinal cord with previous laminectomy interventions and surgical attempts that were unsuccessful in correcting the tethering. 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 Denies any recent cough, cold, infection, fever or any significant changes in medical history since last office visit. Denies any changes to medications, medical history or recent hospitalizations. - Onset: Longstanding, chronic nature - Location: Primarily lower back, radiating to the left leg and heel - Quality: Described as constant aching, shooting, good with pain, suggesting significant chronic discomfort - Radiation: From back into left buttock and down the left lateral leg to the heel - Aggravating Factors: Activities of daily living and prolonged standing or walking - Relieving Factors: Limited due to ongoing and chronic nature - Impact: Interferes with walking beyond 30 minutes, concern for back or leg giving out - Affect: Patient experiences chronic pain but does not report psychological distress in the conversation - Analgesia: Current pain status described as good with pain constant aching and shooting - Adverse Effects: None reported in conversation - Activities of Daily Living: Significant impact, including reduced walking endurance (30 minutes) - Aberrant Drug Related Behaviors: None reported in conversation PRIOR: The patient is a 49-year-old female presenting with chronic low back pain, which has persisted over the years and radiates to her legs, worse on the left. She reports that previous physical therapy was not beneficial and has been omitted for the last 3 years. Her recent occasions led her to seek urgent care due to intensified pain. The patient also mentions Orthopedic concerns, specifically regarding left heel pain and a past diagnosis of spina bifida, partly contributing to her symptoms. She considered a spinal cord stimulator previously but decided against pursuing it. Pain distribution remains predominantly on the left lower extremity but is now including the right groin area. The patient describes increased severity, especially affecting her ability to sleep, and declines current use of previously prescribed medications due to insufficient relief and troublesome side effects, considering other pharmacologic options for pain relief. - Onset and Timing: Long-standing issue, with increased severity over recent times. - Quality and Character: Deep ache, with periods of exacerbation causing significant discomfort. - Primary Location: Low back area. - Radiation: To the legs, particularly left lower extremity laterally and posteriorly, and newly to the right groin area. - Exacerbating Factors: Activity and periods without physical therapy. - Relieving Factors: None reported to be significantly effective, though previous measures involved attempts at physical therapy and medication adjustments. - Interference: Pain significantly affects sleep quality and daily function, with previous episodes leading to emergency department visits. - Affect: Reports difficulty sleeping due to pain, impacting overall quality of life. - Analgesia: Previous medications such as ibuprofen, gabapentin, and tizanidine were taken but not currently in use due to adverse effects or ineffective relief. Currently takes meloxicam. Considering trial of cyclobenzaprine. - Adverse Effects: Experiences allergic reactions to heat therapy; gabapentin causes sleepiness. - Activities of Daily Living: Pain limits activity level and disrupts sleep, affecting daily function. - Aberrant Drug Related Behaviors: None reported or discussed. PRIOR 03/31/22: Patient presents for follow up today in the office. She reports tolerating gabapentin well at bedtime without noted side effects. She reports oral ketamine from [facility] has not been approved but is not sure of denial reasons. We will reach out to [facility] on patient's behalf per patient's request. Patient continues to endorse lower back pain that radiates to her LLE laterally and posteriorly with associated numbness and tinglings in her lower left leg. She states at times her back pain radiates to right hip and notes increased back pain with her montly menses. We reviewed her lumbar MRI at great detail and length again today as well neurosurgeon's recent re-evaluation report. Patient states that constant pain during the day and night has been significantly affecting her daily functioning, sleep, quality of life, and ability to get comfortable. She has been taking Ibuprofen 800 mg BID-TID daily as needed to partially alleviate her pain. We discussed possibility of neuromodulation with SCS trial as well consideration of buprenorphine products. She is hesitant for any attempts for lumbar injections. Patient denies any fever, malaise, chest pain, dyspnea, abdominal or groin pain, loss of balance, gait instability, weight loss, or saddle anesthesia. Patient reports getting regular Botox injections for her bladder dysfunction and has been followed by GI for lack of control of bowel and fecal urgency. PRIOR: Patient presents today via telehealth encounter to discuss possibility for ANA injection to alleviate her back pain. I have [place] this patient [place] [facility] [place] with recent MRI results and previous aborted attempts to un-theter her cord in 2013 due [address] her [address] Dr[address] Driscoll has reviewed her new MRI and has notified us that he does not think he can offer anything else to this patient, especially that there is no stenosis and no significant changes in moderate chronic spondylosis and grade 2 anterolisthesis at the L5-S1. Patient reports today that she has moved to [facility] 7 years ago. Here in [facility], she learned about her congenital spina bifida but in [facility] she was told and treated for Multiple Sclerosis. I have notified this patient today that I have reviewed her case and recent lumbar MRI results with Dr. Da Silva. We discussed possible attempts for Left L5-S1 TFESI which patient declined at this time. She reports that gabapentin has been minimally helpful but she cannot increase doses due to increasing drowsiness. Patient states she lives with her daughter at home and cannot be sleepy or drowsy during the daytime. She continues to report lower back pain that radiates to her LLE laterally and posteriorly with associated numbness and tinglings in her lower left leg. Patient denies any recent falls or bowel incontinence. She denies any fever, malaise, chest pain, dyspnea, abdominal or groin pain, dizziness, weight changes, or saddle anesthesia. PRIOR: Patient is a 46 years old with history of a congenital spina bifida and tethered cord presents today via telehealth to discuss MRI results. parts interpreter was utilized during this encounter. She continues to endorse worsening lower back pain that radiated to her LLE laterally and posteriorly with intermittent numbness and tingling in her left thigh and left toes. Patient has history of urinary incontinence for 4-5 years and receives Botox injections. Patient reports she had several bowel incontinence episodes this week and has been very concerned about this. She also reports her LLE weakness with left foot gets stuck frequently and causes her to trip a lot. She has left lower extremity atrophy since childhood. Patient denies any fever, malaise, abdominal or groin pain, dizziness, weight changes, or saddle anesthesia. Pain is rated at 8/10 today. Her lumbar MRI was consistent with chronic postoperative changes related to post laminectomy changes at the L4 through the L5 levels and prior attempts to untether spinal cord due to a thickened fatty filum partially visualized at the lower sacral levels. Abnormal low-lying conus tip terminating along the dorsal margin of the thecal sac at the L4 level to the left of midline. 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 Small syrinx within the cord at the L1 level. Moderate chronic spondylosis and grade 2 anterolisthesis at the L5-S1 level without central canal stenosis or foraminal narrowing. Patient had complete lamiectomy of L4 with decompression of the L3-L4 and L4-L5 interlaminar spaces and attempted tethered cord through the durotomy which was aborted due to the nature of the anatomy in [place] [facility]. At L5-S1, she had a congenital malformation with spondylolisthesis and the end of the conus was at L4 per previous MRI. Previous MRI did not specify grading of listhesis and current anterolisthesis is at grade 2 with worsening symptoms. Plan to refer patient back to neurosurgery for re-evaluation. PRIOR: Patient is a pleasant 46 years old Polish speaking female who returns today with worsening chronic back pain that radiates laterally to her left lower leg into her left ankle with intermittent numbness and tingling in her left thigh laterally. Patient has been previously seen in this office by Dr. Da Silva and last visit was for review of thoracic MRI in 11/2019 that showed a short segment of central canal dilatation, measuring up to 1.8 mm, within the distal spinal cord at the level of the inferior aspect of the L1 vertebral body. The spinal cord appears low lying. Patient has radiculopathy symptoms secondary to spina bifida occulta. Patient reports she had exploratory low back [place]. Montemayor [place] [facility] [place], nothing else was performed. Denies any recent trauma, injury, or falls. [facility]. Reports intermittent left sided weakness in her left lower extremity. She has been taking ibuprofen, gabapentin, and TENS unit which no longer provide her pain relief. Patient completed one session of physical therapy over 5 years ago that aggravated her back pain and was told not to continue PT. Currently, she is unable to tolerate PT due to pain and her current conditions. Denies chiropractic manipulation, acupuncture or massage.?Patient reports decreased left lower extremity muscle mass and regularly receives bladder Botox injections due to spina bifida. She denies any fever, malaise, abdominal or groin pain, dizziness, weight changes, bladder/bowel dysfunction or saddle anesthesia. Pain is rated at 7/10 today. [facility] Medical History Family history of colon cancer in father NSAID long-term use Syncope Obesity (BMI 30-39.9) Osteoarthritis of lumbar spine Urinary incontinence Chronic back pain Venous insufficiency Varicose vein of leg Tubular adenoma Neurogenic bladder disorder Spina bifida occulta Surgical History H/O colonoscopy History of section History of tubal ligation History of cholecystectomy Social History Patient Tobacco Use Status: Never used Tobacco Review of Systems Const Details: - Musculoskeletal: Reports pain in the back radiating to left leg, heel involvement - Neurological: Reports back or leg gives out All systems reviewed & are unremarkable except as noted in HPI and below Physical Exam Vital Signs: Last Vital Signs Pulse 69 02/12/25 09:11 BP 126/79 02/12/25 09:11 Pulse Ox 98 02/12/25 09:11 Oxygen Delivery Method Room Air 02/12/25 09:11 BMI result Body Mass Index 38.1 General: Appears afebrile. Moderate distress due to pain. Alert and oriented. Mood and affect appropriate. Follows and participates in conversation appropriately. Respiratory effort is unlabored. No cough. Able to transition from sit to stand unassisted. Uses cane with ambulation. Ambulates with right normal heel strike and toe off, increased pain left heel standing. General: Yes no CVA tenderness Back/Spine/Pelvis Other: Limited lumbar ROM due to pain. Bending forward, lumbar extension and flexion aggravates her pain to moderate degree. Loading test is positive for pain increase in the bilateral lumbar spine, worse on the left. Demonstrates 5/5 right and 4/5 left strength of quadriceps bilaterally as well as 4/5 left and 5/5 right flexion/dorsiflexion of feet against resistance. 2+ pedal pulses bilaterally. No groin pain with I/E hip rotations bilaterally. Isaias's and Stinchfield test reproduce lateral hip pain but not back pain. Valsalva maneuvr is negative. Back: no CVA tenderness Cervical Spine: cervical ROM normal, cervical muscular tenderness and Cervical spine tenderness Thoracic/Lumbar Spine: thoracic and lumbar spine normal to inspection, Thoracic/lumbar spine scar(s) (lower back well healed scar), Lasegue's sign positive on the left and localized, pain with thoraco-lumbar ROM, paraspinal muscle tenderness, thoraco-lumbar ROM limited with forward flexion and with lateral flexion to the left (limited by pain), No thoracic spinal tenderness, lumbar spinal tenderness (L4-S1) and straight leg raise positive left at 40 degrees Pelvis: buttock tenderness on the left Sacroiliac joints: bilaterally tender to palpation Results Reviewed Results Reviewed: MR lumbar spine without gadolinium 02/04/25 Comparison: CR/SR - XR LUMBAR SPINE 2-3V - 02/22/24 14:38 EDT Findings: There is grade 2 anterolisthesis at L5-S1 level. Otherwise lumbar alignment is maintained. Vertebral body height is maintained. No acute fracture. 7 mm round lesion in L2 vertebral body the left hyperintense on T2 weighted and inversion recovery images with central hypointensity and seen peripheral hyperintensity on T1 weighted images and this is nonspecific. Degenerative disc disease at the L5-S1 level. Remainder lumbar discs are desiccated but overall maintain normal height. Distal conus is low lying terminating at L3-4. There is a minimal syrinx in the conus/distal cord at the L2-3 level. Bilateral L4 laminectomies. The nerve roots in the thecal sac appears somewhat clumped together raising the possibility of arachnoiditis. No evidence of disc herniation. T12-L1 through L2-3 disc levels demonstrate no significant bulge or significant stenosis. At L3-4 there is minimal disc bulge with no significant stenosis. At L4-5 no significant stenosis. L5-S1 no disc herniation, significant disc bulge or significant stenosis. 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 IMPRESSION: 1. Low lying distal conus medullaris with minimal syrinx in distal cord/conus at the L1-2 level. 2. Postoperative changes at L4-5. Nerve roots in the thecal sac appear somewhat clumped together raising the possibility of arachnoiditis. 3. L5-S1 degenerative disc disease and grade 2 anterolisthesis. 4. No disc herniation or significant stenosis in the lumbar spine. 5. 7 mm nonspecific bone lesion in L2 vertebral body. XR LUMBOSACRAL SPINE 02/22/24 CLINICAL INFORMATION: Acute right-sided low back pain COMPARISON: MRI from 01/11/2022 TECHNIQUE: AP and lateral views of lumbar spine FINDINGS: Patient status post L4-L5 laminectomy. There is narrowing of L4-L5 intervertebral disc space and there is fusion of L5-S1 and grade 2 anterior listhesis of L5 over S1. IMPRESSION: Postsurgical changes with grade 2 anterolisthesis of L5 over S1. 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, unspecified Category: Medical (5) Abnormal MRI, lumbar spine: Code(s): R93.7 - Abnormal findings on diagnostic imaging of other parts of musculoskeletal system Category: Medical (6) Lumbar radiculopathy: Code(s): M54.16 - Radiculopathy, lumbar region Category: Medical (7) Spina bifida occulta: Code(s): Q76.0 - Spina bifida occulta Category: Medical (8) Tethered spinal cord: Code(s): Q06.8 - Other specified congenital malformations of spinal cord Category: Medical (9) Spondylolisthesis of lumbosacral region: Code(s): M43.17 - Spondylolisthesis, lumbosacral region Category: Medical (10) Tarlov cyst: Code(s): G96.191 - Perineural cyst Category: Medical Plan I will coordinate an interdisciplinary evaluation of the patient's condition, needing assessment from a neurosurgeon, infectious disease specialist, and oncologist for the newly identified spinal issues on recent lumbar MRI as noted above. Ensuring comprehensive investigation and understanding of the identified progressed L5-S1 spondylolisthesis, L4-L5 arachnoiditis signs, a nonspecific lesion of L2, and Tarlov cyst, we aim to intervene promptly. This includes immediate referrals for diagnostic evaluations like blood cultures and lab work. Therapeutic and possibly surgical remedies will follow specific evaluations, aiming for symptom relief and maintaining her quality of life. Patient is aware to call if pain worsens or if she develops any red flag symptoms to seek emergency care. All questions and concerns have been answered and patient agreed with the plan. Follow up after evaluations/lab results and sooner as needed. Patient was informed and verbally consented to the use of an ambient scribe for clinic note documentation during this visit. Orders: Orders Erythrocyte Sedimentation Rate Today G03.9 - Meningitis, unspecified, M89.9 - Disorder of bone, unspecified, R93.7 - Abnormal findings on diagnostic imaging of other parts of musculoskeletal system CRP High Sensitivity Today G03.9 - Meningitis, unspecified, M89.9 - Disorder of bone, unspecified, R93.7 - Abnormal findings on diagnostic imaging of other parts of musculoskeletal system Complete Blood Count Auto Diff Today G03.9 - Meningitis, unspecified, M89.9 - Disorder of bone, unspecified, R93.7 - Abnormal findings on diagnostic imaging of other parts of musculoskeletal system Comprehensive [place]. Panel Fast Today G03.9 - Meningitis, unspecified, M89.9 - Disorder of bone, unspecified, R93.7 - Abnormal findings on diagnostic imaging of other parts of musculoskeletal system Blood Culture X2 Today G03.9 - Meningitis, unspecified, R93.7 - Abnormal findings on diagnostic imaging of other parts of musculoskeletal system Referrals Neuro Spine Referral G03.9 - Meningitis, unspecified, G96.191 - Perineural cyst, M43.17 - Spondylolisthesis, lumbosacral region, M54.16 - Radiculopathy, lumbar region, M89.9 - Disorder of bone, unspecified Hematology & Oncology Referral M89.9 - Disorder of bone, unspecified, R93.7 - Abnormal findings on diagnostic imaging of other parts of musculoskeletal system Infectious Disease Referral G03.9 - Meningitis, unspecified, R93.7 - Abnormal findings on diagnostic imaging of other parts of musculoskeletal system Patient Instructions: - Follow up with the neurosurgeon, infectious disease specialist, and oncologist as directed. - Complete requested blood work and imaging at the lab at the [facility]. - Keep a record of any new symptoms or changes in pain. - Contact our office if experiencing any significant changes, such as increased weakness or numbness, loss of balance, loss of sensations in lower or upper extremities or genital areas or new incontinence episodes. - Attend all scheduled appointments for specialists to obtain a comprehensive evaluation of your condition. Coding Level of Care Code Est Pt Level 4 (79861) Complex EM visit Add On G2211 Diagnoses Arachnoiditis G03.9 Abnormal MRI, lumbar spine R93.7 Lesion of bone of lumbosacral spine M89.9 Lumbar radiculopathy M54.16 Spina bifida occulta Q76.0 Tethered spinal cord Q06.8 Spondylolisthesis of lumbosacral region M43.17 Tarlov cyst G96.191
[2025-02-12 09:11] VITALS: BP 126/79; PULSE 69; O2SAT 98; BMI 38.1
--- OUTSIDE RECORDS SUMMARY | 2025-02-12 09:20 | XMS_ITS | Encounter Summary ---
Author Organization [employer] Address [address] [place] [address] [address] [place] [address] Care Team Providers Care Drilling Engineering Manager Name Role Phone Name, Dale SHELBY Primary Care Provider [phone] Reason for Visit * Reason Comments Med Refill Encounter Details Date Type Department Care Team ([facility] st Contact Info) Description 01/22/2024 Refill [facility] [address], [place] [phone] [facility] [address], [place] [phone] Impacted cerumen of right ear Social History [...] documented as of this encounter Care Teams Drilling Engineering Manager Relationship Specialty Start Date End Date Name, MD Dale [address] [place] [address] PCP - General Family Medicine 09/24/18 documented as of this encounter
--- OUTSIDE RECORDS SUMMARY | 2025-02-12 09:21 | XMS_ITS | Clinical Summary ---
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 Low back pain 04/20/2014 Urge incontinence 01/20/2013 Encounters Date Type Department Care Team Description 01/08/2025 8:30 AM EDT - 01/08/2025 11:59 PM EDT Hospital Encounter Radiology Department - [address] [phone] Screening breast examination Discharge Disposition: Home or Self Care 12/19/2024 8:45 AM EDT Office Visit Obstetrics & Gynecology - [address] [address] Juliet Vance CNM Encounter for well woman exam with routine gynecological exam (Primary Dx); Screening breast examination; Acute vaginitis from Last 3 Months Immunizations Name Administration Dates Next Due Influenza trivalent, with pr eservative (Fluzone; Afluria) 6mo and older 08/16/2015,08/07/2014,07/02/2013 Influenza, Unspecified 07/04/2021 PPD Test 08/16/2015 Nuserv SARS-CoV-2 COVID-19, mRNA, LNP-S, preservative free 07/18/2021,06/27/2021 [...] is recommended in 1 year. MAMMO LOCATION: [facility], [address] [place] [address], [phone], . -------- FINAL REPORT -------- Dictated By: Elizabeth Johnson Dictated Date: 01/08/2025 16:06 ET Assigned Physician: Elizabeth Johnson Reviewed and Electronically Signed By: Elizabeth Johnson Signed Date: 01/08/2025 16:07 ET Workstation ID: [id number] Transcribed By: Self Edit Transcribed Date: 01/08/2025 [...] is recommended in 1 year. MAMMO LOCATION: [facility], [address] [place] [address], [phone], . -------- FINAL REPORT -------- Dictated By: Elizabeth Johnson Dictated Date: 01/08/2025 16:06 ET Assigned Physician: Elizabeth Johnson Reviewed and Electronically Signed By: Elizabeth Johnson Signed Date: 01/08/2025 16:07 ET Workstation ID: [id number] Transcribed By: Self Edit Transcribed Date: 01/08/2025 16:06 ET Jluiet Vance CNM IMG BI PROCEDURES Final Resul t * Trichomonas vaginalis antigen (12/19/2024 9:07 AM EDT) Trichomonas vaginalis Negative Negative 12/19/2024 4:42 PM EDT [facility] Swab Vaginal structure / Unknown Non-blood Collection / Unknown 12/19/2024 9:07 AM EDT 12/19/2024 3:58 PM EDT Juliet Vance CNM LAB MICROBIOLOGY - GENERAL OR DERABLES Final Result [facility] [address] [place] [address], [place] [phone] * Chlamydia trachomatis and Neisseria gonorrhoeae molecular study (12/19/2024 9:07 AM EDT) Neisseria gonorrhoeae PCR Negative Negative LAB MOLECULAR DIAGNOSTICS METHOD 12/20/2024 8:40 AM EDT [facility] Chlamydia trachomatis PCR Negative Negative LAB MOLECULAR DIAGNOSTICS METHOD 12/20/2024 8:40 AM EDT [facility] Swab Cervix uteri structure / Unknown Non-blood Collection / Unknown 12/19/2024 9:07 AM EDT 12/19/2024 3:[address] [facility] MICROBIOLOGY - GENERAL OR DERABLES Final Result [facility] [address] [place] [address], [place] [phone] * (ABNORMAL) Wet prep, genital (12/19/2024 9:07 AM EDT) [facility] Clue Cells, Wet Prep Positive(A) Negative 12/19/2024 4:26 PM EDT [facility] Yeast, Wet Prep Negative Negative 12/19/2024 4:26 PM EDT [facility] Trichomonas, Wet Prep Indeterminate Negative 12/19/2024 4:26 PM EDT [facility] Comment:Refer to Trichomonas antigen. Swab Vaginal structure / Unknown Non-blood Collection / Unknown 12/19/2024 9:07 AM EDT 12/19/2024 3:[address] [facility] MICROBIOLOGY - GENERAL OR DERABLES Final Result [facility] [address] [place] [address], [place] [phone] * Cervical Cancer Screening: HPV (11/20/2023) Pathologist [facility] Cervical Cancer Screening: HPV negative, abstracted Historical Provider HEALTH MAINTENANCE Final Result * Hepatitis C Screening (11/27/2022) Pathologist [facility] Hepatitis C Screening abstracted Historical Provider HEALTH [...] Most Recently Relevant to Health Maintenance Insurance [facility] Member Subscriber Plan / Payer (Ef fective 2019-Present) Name:Esperanza Melgar Relation to Subscriber:Self Name:Esperanza Melgar Payer ID:[id number] Group ID:[id number] Type:Not on file Address: [place] [address] [place] [address] Care Teams Commercial Credit Officer Relationship Specialty Start Date End Date Name, MD Dale [address] [place], [place] PCP - General Internal Medicine 07/29/17
--- OUTSIDE RECORDS SUMMARY | 2025-02-12 09:21 | XMS_ITS | Encounter Summary ---
Author Organization [employer] Address [address] [place] [address] 7 [place] [address] Care Team Providers Care Corporate Safety Director Name Role Phone Name, Dale SHELBY Primary Care Provider [phone] Reason for Visit * Reason Onset Date Comments Appointment Request 01/17/2023 Derm Follow Up Encounter Details Date Type Department Care Team ([facility] st Contact Info) Description 01/17/2023 Telephone [facility] MEDICINE [address] [place], [place] [phone] Name, MD Dale [address] [place], [place] [phone] Appointment Request (Derm Follow Up) Social History [...] Miscellaneous Notes * Telephone Encounter - Daja Valles - 01/17/2023 8:54 AM EDT Tc from patient requesting a follow up appt. Patient was last seen on 11/20/22 and was asked to callback for f/u appt in regards to Cera Ve cream results. *Patient speaks Occitan documented in this encounter Plan of Treatment Not on file documented as of this encounter Visit Diagnoses Not on filedocumented in this encounter Care Teams Corporate Safety Director Relationship Specialty Start Date End Date Name, MD Dale [address] [place] [address] PCP - General Family Medicine 09/24/18 documented as of this encounter
--- OUTSIDE RECORDS SUMMARY | 2025-02-12 09:21 | XMS_ITS | Encounter Summary ---
Author Organization [employer] Address [address] [place] [address] 7 [place] [address] Care Team Providers Care Vp Care Management Name Role Phone Name, Dale SHELBY Primary Care Provider [phone] Reason for Visit * Reason Onset Date Comments Results 12/25/2023 Encounter Details Date Type Department Care Team (Late st Contact Info) Description 12/25/2023 Telephone [facility]IC[facility] [address] [place], [place] [phone] Name, MD Dale [address] [place], [place] [phone] Results Social History Tobacco Use Types Packs/Day [...] documented as of this encounter Care Teams Vp Care Management Relationship Specialty Start Date End Date Name, MD Dale [address] [place] [address] PCP - General Family Medicine 09/24/18 documented as of this encounter
--- OUTSIDE RECORDS SUMMARY | 2025-02-12 09:21 | XMS_ITS | Encounter Summary ---
Author Organization [employer] Address [address] [place] [address] 7 [place] [address] Care Team Providers Care Senior Executive Assistant Name Role Phone Name, Dale SHELBY Primary Care Provider [phone] Reason for Visit * Reason Comments Med Refill Encounter Details Date Type Department Care Team (Late st Contact Info) Description 02/08/2023 Refill [facility] MEDICINE [address] [place], [place] [phone] Name, MD Dale [address] [place], [place] [phone] Spina bifida occulta Social History Tobacco Use [...] occulta documented in this encounter Care Teams Senior Executive Assistant Relationship Specialty Start Date End Date Name, MD Dale [address] [place] [address] PCP - General Family Medicine 09/24/18 documented as of this encounter
--- OUTSIDE RECORDS SUMMARY | 2025-02-12 09:21 | XMS_ITS | Encounter Summary ---
Author Organization [employer] Address [address] [place] [address] 7 [place] [address] Care Team Providers Care Latcher Name Role Phone Name, Dale SHELBY Primary Care Provider [phone] Encounter Details Date Type Department Care Team (Latest Contact Info) Description 10/09/2018 Abstract [facility] CONVERSIONS Dental, Provider, DDS Social History [...] on filedocumented in this encounter Care Teams Latcher Relationship Specialty Start Date End Date Name, MD Dale [address] [place] [phone] PCP - General Family Medicine 09/24/18 documented as of this encounter
--- OUTSIDE RECORDS SUMMARY | 2025-02-12 09:21 | XMS_ITS | Encounter Summary ---
Author Organization [facility] Address [address] [place] [address] Care Team Providers Care Book Solicitor Name Role Phone Name, Dale Primary Care Provider [phone] Encounter Details Date Type Department Care Team (Late st Contact Info) Description 08/12/2022 Orders Only [facility] XRay [address] [place], [place] [phone] Nidhi Christian MD [address] [place], [place] [phone] Social History Tobacco Use Types Packs/Day Years [...] on filedocumented in this encounter Care Teams Book Solicitor Relationship Specialty Start Date End Date Name, Dale [address] [place] [phone] PCP - General 04/12/17 documented as of this encounter
--- OUTSIDE RECORDS SUMMARY | 2025-02-12 09:21 | XMS_ITS | Referral Summary ---
Author Organization [facility] Address [address] [place] [address] Care Team Providers Care Rn Internship Name Role Phone Name, Dale Primary Care Provider [phone] Allergies Active Allergy Reactions Criticality Noted Date [...] 6:22 AM 06/27/2018 11:44 AM Care Teams Rn Internship Relationship Specialty Start Date End Date Name, Dale [address] [place] [address] PCP - General 04/12/17
--- OUTSIDE RECORDS SUMMARY | 2025-02-12 09:21 | XMS_ITS | Clinical Summary ---
Author Organization [employer] Address [address] [facility] 7t [place] [address] Care Team Providers Care Home Care Scheduler Name Role Phone Name, Dale SHELBY Primary Care Provider [phone] Allergies Active Allergy Reactions Criticality Noted Date [...] Description 01/05/2025 11:30 AM EDT [address] [facility] MEDICINE [address] [place] [address] Name, MD Dale Spina bifida occulta (Primary Dx); Chronic pain syndrome; Encounter for immunization; Vitamin D deficiency; Screening for cholesterol level 01/05/2025 Travel 01/01/[address] [facility]ICINE [address] [place] [address] Thea Cutler MA chartprep from [...] 1974 FIT 1974 FOBT 1974 Sigmoidoscopy 1974 Disability Screening 1974 Family Planning (PISQ) 1989 Hepatitis B [...] 11:02 AM EST HM COLONOSCOPY Routine 12/14/2022 [facility] HISTORICAL HEPATITIS C AB W/REFL TO HCV RNA, QN, PCR Routine 11/09/2020 9:53 AM EST HIV 1/2 ANTIGEN/ANTIBODY, FOURTH GENERATION W/RFL Routine 11/09/2020 9:53 AM EST from Last 3 Months or Most Recently Relevant to Health Maintenance Results * (ABNORMAL) CBC auto differential (01/06/2025 9:44 AM EDT) White Blood Count 8.0 4.8 - 10.8 X10*3/uL [facility] Red Blood Count 4.36 4.20 - 5.50 X10*6/uL [facility] Hemoglobin 13.7 12.0 - 16.0 g/dl [facility] Hematocrit 41.3 37.0 - 47.0 % [facility] Mean Corpuscular Volume 94.7 80.0 - 98.0 fL [facility] Mean Corpuscular Hemoglobin 31.4 27.0 - 33.0 pg [facility] Mean Corpuscular HGB Conc 33.2 31.0 - 35.0 g/dl [facility] Red Cell Distribution Width 13.5 11.0 - 16.0 % [facility] Platelet Count 248 160 - 400 X10*3/uL [facility] Mean Platelet Volume 11.9 9.4 - 12.3 fL [facility] Neutrophils Percent Auto 69.9 45 - 73 % [facility] Imm Gran Pct Auto 0.4 0.0 - 0.4 % [facility] Lymphocytes Percent Auto 18.4(L) 20 - 40 % [facility] Monocytes Percent Auto 8.1 2 - 11 % [facility] Eosinophils Percent Auto 2.6 0 - 4 % [facility] Basophils Percent Auto 0.6 0 - 2 % [facility] NRBC Pct Auto 0.0 0.0 - 0.2 /100WBC [facility] Neutrophils Absolute Auto 5.6 2.0 - 8.3 x10*3/uL [facility] Imm Gran Abs Auto 0.03 0.00 - 0.03 X10*3/uL [facility] Lymphocytes Absolute Auto 1.5 1.2 - 4.9 X10*3/uL [facility] Monocytes Absolute Auto 0.6 0.1 - 1.2 X10*3/uL [facility] Eosinophils Absolute Auto 0.2 0.0 - 0.4 X10*3/uL [facility] Basophils Absolute Auto 0.1 0.0 - 0.2 X10*3/uL [facility] NRBC Abs Auto 0.000 0.0 - 0.012 X10*3/uL [facility] Blood Venous blood specimen / Unknown 01/06/2025 9:44 AM EDT 01/06/2025 11:02 AM EDT us Dale Name LAB BLOOD ORDERABLES Final Resul t [facility] [address] [place], [place] [phone] * Vitamin D, 25-Hydroxy, Total, Immunoassay (01/06/2025 8:44 AM EDT) Vitamin D 25-OH Total 38.0 >30 ng/mL [facility] Comment: Health Based Reference Values*< 20 ??ng/mL ??Saseuapgj00-01 ng/mL ??Insufficient> 30 ??ng/mL ??Sufficient*Shalini MALIN. N [...] 01/06/2025 11:02 AM EDT us Dale Name MD LAB BLOOD ORDERABLES Final Resul t [facility] [address] [place] [phone] * (ABNORMAL) Lipid Panel, Standard (01/06/2025 8:44 AM EDT) Triglycerides 116 <150 mg/dL [facility] Comment:Desirable Triglyceri de: less than 150 mg/dLBorderline High Triglyceride 150-199 mg/dLHigh Triglyceride: 200-499 mg/dLVery High Triglyceride: greater than or equal to 5OO mg/dL Cholesterol 225(H) <200 mg/dL [facility] Comment:Desirable Cholestero l: less than 200 mg/dLBorderline High Cholesterol: 200-239 mg/dLHigh Cholesterol: greater than 239 mg/dL LDL Cholesterol Calculated 146(H) <100 mg/dL [facility] Comment:Desirable LDL: less than 100 mg/dLNear Optimal/Above Optimal LDL: 110- 129 mg/dLBorderline High LDL: 130-159 mg/dLHigh LDL: 160-189 mg/dLVery High LDL: greater than or equal to 190 mg/dL HDL Cholesterol 56 >40 mg/dL [facility] Comment:Desirable HDL: great er than 40 mg/dL Note: This HDL assay may give artificially low results in patients with liver disease. Blood Venous blood specimen / Unknown 01/06/2025 8:44 AM EDT 01/06/2025 11:02 AM EDT us Dale Batres MD LAB BLOOD ORDERABLES Final Resul t Performing Organization Address [facility] de Phone Number [facility] [address] [place] [phone] * (ABNORMAL) Basic Metabolic Panel (01/06/2025 8:44 AM EDT) Sodium 140 135 - 145 mmol/L [facility] Potassium 4.1 3.3 - 5.1 mmol/L [facility] Chloride 108 96 - 108 mmol/L [facility] Carbon Dioxide 27 22 - 29 mmol/L [facility] Anion Gap 9(L) 12 - 20 [facility] Urea Nitrogen (BUN) 18(H) 9 - 16 mg/dL [facility] Creatinine, Serum 0.72 0.5 - 1.4 mg/dL [facility] Estimated Glomerular Filt Rate >60 [facility] Comment:Chronic Kidney Disea se: Estimated GFR < 60 mL/min/1.75m3Jnvmje Kidney Disease: Estimated GFR < 15 mL/min/1.73m2 Glucose 88 60 - 115 mg/dL [facility] Calcium 9.2 8.4 - 10.2 mg/dL [facility] Blood Venous blood specimen / Unknown 01/06/2025 8:44 AM EDT 01/06/2025 11:02 AM EDT us Dale Batres MD LAB BLOOD ORDERABLES Final Resul t Performing Organization Address [facility] Co de Phone Number [facility] [address] [place] [phone] * PAP/HPV (11/20/2023 11:02 AM EST) [facility] Provider HEALTH MAINTENANCE Final Result * (ABNORMAL) Colonoscopy (12/14/2022) Colonoscopy Abnormal( A) Normal Comment:Repeat colonoscopy i n 5 years due to hx of advanced adenoma Historical Provider HEALTH MAINTENANCE Final Result * HEPATITIS C AB W/REFL TO HCV RNA, QN, PCR (11/09/2020 9:53 AM EST) HEPATITIS C ANTIBODY NON-REACT SEBASTIEN NON-REACT SEBASTIEN [facility] INDEX 0.02 <1.00 [facility] Comment: ?? HCV antibody was non-reactive. There is no laboratory ?? evidence of HCV infection. ?? In most cases, no further action is required. However, if recent HCV exposure is suspected, a test for HCV RNA (test code 49556) is suggested. ?? For additional information please refer to http://Shopo.EARTHTORY/faq/EWI74c3 (This link is being provided for informational/ educational purposes only.) ?? 11/09/2020 9:53 AM EST Dale Name HISTORICAL/NON ORDERABLE LABS Fi nal Result [facility] [address] * HIV 1/2 ANTIGEN/ANTIBODY,FOURTH GENERATION W/RFL [...] ? For additional information please refer to http://Shopo.EARTHTORY/faq/HJG411 (This link is being provided for informational/ educational purposes only.) ? The performance of this assay has not been clinically validated in patients less than 2 years old. ?? 11/09/2020 9:53 AM EST us Dale Batres MD LAB BLOOD ORDERABLES Final Resul t [facility] [address] from Last 3 Months or Most Recently Relevant to Health Maintenance Insurance [employer] < 65 [employer] < 65 Care Teams Home Care Scheduler Relationship Specialty Start Date End Date Name, MD Dale [address] [place] [address] PCP - General Family Medicine 09/24/18
--- OUTSIDE RECORDS SUMMARY | 2025-02-12 09:21 | XMS_ITS | Clinical Summary ---
Author Organization [facility] [employer] [facility] Address [address] [place] [address] Care Team Providers Care Potato Inspector Name Role Phone Unavailable Primary Care Provider [...] Adults 18 yrs or above (or HM Modifier)([facility]) 1974 Hepatitis C Virus Infection in Adolescents and Adults: Screening (or Modifier) ([facility]) 1992 [facility] Screening Reminder: Mariah yoder for all adults ([facility]) 1992 Tobacco Smoking Cessation: i n Adults excluding Women: Behavioral and Pharmacotherapy Interventions ([facility]) 1992 DTaP/Tdap/Td Vaccines ([facility]) (1 - Tdap) 1993 Cervical Cancer Screenin 1-65 yrs of age (or Modifier) 1995 Cervical Cancer Screening: P ap every 3 yrs pts age 21-65 1995 Cervical Cancer: Pap Screeni ng with Modifier timing ([facility]) 1995 Cervical Cancer: hrHPV alone or with cotesting Pap for Pts 30-65yrs screening every 5yrs ([facility]) 1995 Colorectal Cancer Screening 45 -75 Yrs (or HM Modifier ) 2019 Colorectal Cancer: FLEXIBLE SIGMOIDOSCOPY Screening every 5 yrs 2019 Colorectal Cancer: Fecal Imm unochemical Test (FIT) Annually [facility] 2019 Colorectal Cancer: High-sens itivity gFOBT Screening Annually [facility] 2019 Colorectal Cancer: Stool Col oguard Screening every 3 yrs 2019 Colorectal Cancer:CT Colonography Screening every 5 yr s 2019 zzRETIRED Lipid Screening: E very 5 yrs for Women aged 45+ (or HM Modifier) ([facility]) 2020 COVID-19 Vaccine Screening: Initial Series and Booster Status ([facility]) (2023- season) 2024 Breast Cancer: Screening Mariah ually age 50-74 yrs (or HM Modifier)([facility]) 2024 Pneumococcal Vaccination Scr eening: Patients 50+ yrs of age ([facility]) (1 of 1 - PCV) 2024 Zoster/Shingles Vaccine Seri es Screening: Adults aged 18+ yrs (or HM Modifiers)([facility]) (1 of 2) 2024 Flu Vaccination: Yearly for ages 18mos through 64 years (or Modifier)([facility]) 04/24/2025 Medical Devices Not on file
--- OUTSIDE RECORDS SUMMARY | 2025-02-12 09:21 | XMS_ITS | Encounter Summary ---
Author Organization [employer] Address [address] [facility] 7t [place] [address] Care Team Providers Care Field Marketing Associate Name Role Phone Name, Dale SHELBY Primary Care Provider [phone] Encounter Details Date Type Department Care Team ([facility] st Contact Info) Description 07/09/2024 Orders Only [facility] MEDICINE [address] [place] [address] Provider, MD Jon Social History Tobacco Use [...] documented as of this encounter Care Teams Field Marketing Associate Relationship Specialty Start Date End Date Name, MD Dale [address] [place] [address] PCP - General Family Medicine 09/24/18 documented as of this encounter
--- OUTSIDE RECORDS SUMMARY | 2025-02-12 09:21 | XMS_ITS | Encounter Summary ---
Author Organization [employer] Address [address] [place] [address] 7 [place] [address] Care Team Providers Care Professor Of Food Biochemistry Name Role Phone NameDale MD Primary Care Provider Encounter Details Date Type Department Care Team ([facility] st Contact Info) Description 02/23/[address] [facility] MEDICINE [address] [place], [place] [phone] NameDale MD [address] [place] [address] Social History Tobacco Use Types Packs/Day Years [...] on filedocumented in this encounter Care Teams Professor Of Food Biochemistry Relationship Specialty Start Date End Date NameDale MD [address] [place] [address] PCP - General Family Medicine 09/24/18 documented as of this encounter
--- OUTSIDE RECORDS SUMMARY | 2025-02-12 09:21 | XMS_ITS | Clinical Summary ---
Author Organization [facility] Address [address] [place] [address] Care Team Providers Care Operator Coating Furnace Name Role Phone Name, Dale Primary Care Provider [phone] Allergies Active Allergy Reactions Criticality Noted Date [...] series) 2049 HIV Screening Completed 11/09/[address] [facility] [place] [id number] Advance Directives * Full Code (Latest Code Status on File) Date Activated Date Inactivated Comments 03/25/2020 6:05 AM 03/25/2020 1:50 PM * Full Code Date Activated Date Inactivated Comments 06/27/2018 6:22 AM 06/27/2018 11:44 AM Care Teams Operator Coating Furnace Relationship Specialty Start Date End Date NameDale [address] [place] [address] PCP - General 04/12/17
== END 2025-02-12 09:49 | disposition home or self-care (01) ==
LOC: HO.PMC 09:06
PROVIDERS: Visit Provider Nurse Practitioner Family
DX: G03.9 Meningitis, unspecified (principal); R93.7 Abnormal findings on diagnostic imaging of other parts of musculoskeletal system; M89.9 Disorder of bone, unspecified; M54.16 Radiculopathy, lumbar region; Q76.0 Spina bifida occulta; Q06.8 Other specified congenital malformations of spinal cord; M43.17 Spondylolisthesis, lumbosacral region; G96.191 Perineural cyst
CPT/HCPCS: 99214; G2211

== ENCOUNTER 2025-02-12 09:06 | Outpatient (REF) | payer OTHER, SELFPAY ==
--- OUTSIDE RECORDS SUMMARY | 2025-02-12 10:03 | XMS_ITS | Encounter Summary ---
Author Organization [employer] Address [address] [place] [address] 7 [place] [address] Care Team Providers Care Highway Engineering Teacher Name Role Phone Name, Dale SHELBY Primary Care Provider [phone] Reason for Visit * Reason Comments Med Refill Encounter Details Date Type Department Care Team ([facility] st Contact Info) Description 01/22/2024 Refill [facility] MED[facility]INE [address] [place], [place] [phone] [facility] [address] [place], [place] [phone] Impacted cerumen of right ear Social History [...] documented as of this encounter Care Teams Highway Engineering Teacher Relationship Specialty Start Date End Date Name, MD Dale [address] [place] [address] PCP - General Family Medicine 09/24/18 documented as of this encounter
--- OUTSIDE RECORDS SUMMARY | 2025-02-12 10:04 | XMS_ITS | Clinical Summary ---
Author Organization [employer] Address [address] [facility] 7t [place] [address] Care Team Providers Care Hot Knife Foxing Cutter Name Role Phone Name, Dale SHELBY Primary Care Provider [phone] Allergies Active Allergy Reactions Criticality Noted Date [...] Description 01/05/2025 11:30 AM EDT Office Visit [facility] MEDICINE [address] [place] [address] Name, MD Dale Spina bifida occulta (Primary Dx); Chronic pain syndrome; Encounter for immunization; Vitamin D deficiency; Screening for cholesterol level 01/05/2025 Travel 01/01/2025 Telephone [facility] MEDICINE [address] [place] [address] Thea Cutler MA chartprep from [...] Blood Count 8.0 4.8 - 10.8 X10*3/uL [facility] Red Blood Count 4.36 4.20 - 5.50 X10*6/uL [facility] Hemoglobin 13.7 12.0 - 16.0 g/dl [facility] Hematocrit 41.3 37.0 - 47.0 % [facility] Mean Corpuscular Volume 94.7 80.0 - 98.0 fL [facility] Mean Corpuscular Hemoglobin 31.4 27.0 - 33.0 pg [facility] Mean Corpuscular HGB Conc 33.2 31.0 - 35.0 g/dl [facility] Red Cell Distribution Width 13.5 11.0 - 16.0 % [facility] Platelet Count 248 160 - 400 X10*3/uL [facility] Mean Platelet Volume 11.9 9.4 - 12.3 fL [facility] Neutrophils Percent Auto 69.9 45 - 73 % [facility] Imm Gran Pct Auto 0.4 0.0 - 0.4 % [facility] Lymphocytes Percent Auto 18.4(L) 20 - 40 % [facility] Monocytes Percent Auto 8.1 2 - 11 % [facility] Eosinophils Percent Auto 2.6 0 - 4 % [facility] Basophils Percent Auto 0.6 0 - 2 % [facility] NRBC Pct Auto 0.0 0.0 - 0.2 /100WBC [facility] Neutrophils Absolute Auto 5.6 2.0 - 8.3 x10*3/uL [facility] Imm Gran Abs Auto 0.03 0.00 - 0.03 X10*3/uL [facility] Lymphocytes Absolute Auto 1.5 1.2 - 4.9 X10*3/uL [facility] Monocytes Absolute Auto 0.6 0.1 - 1.2 X10*3/uL [facility] Eosinophils Absolute Auto 0.2 0.0 - 0.4 X10*3/uL [facility] Basophils Absolute Auto 0.1 0.0 - 0.2 X10*3/uL [facility] NRBC Abs Auto 0.000 0.0 - 0.012 X10*3/uL [facility] Blood Venous blood specimen / Unknown 01/06/2025 9:44 AM EDT 01/06/2025 11:02 AM EDT us Dale Name LAB BLOOD ORDERABLES Final Resul t [facility] [address] [place], [place] [phone] * Vitamin D, 25-Hydroxy, Total, Immunoassay (01/06/2025 8:44 AM EDT) Vitamin D 25-OH Total 38.0 >30 ng/mL [facility] Comment: Health Based Reference Values*< 20 ??ng/mL ??Fmrrdiblg43-41 ng/mL ??Insufficient> 30 ??ng/mL ??Sufficient*Shalini MALIN. N [...] MD LAB BLOOD ORDERABLES Final Resul t [facility] [address] [place] [phone] * (ABNORMAL) Lipid Panel, Standard (01/06/2025 8:44 AM EDT) Triglycerides 116 <150 mg/dL [facility] Comment:Desirable Triglyceri de: less than 150 mg/dLBorderline High Triglyceride 150-199 mg/dLHigh Triglyceride: 200-499 mg/dLVery High Triglyceride: greater than or equal to 5OO mg/dL Cholesterol 225(H) <200 mg/dL [facility] Comment:Desirable Cholestero l: less than 200 mg/dLBorderline High Cholesterol: 200-239 mg/dLHigh Cholesterol: greater than 239 mg/dL LDL Cholesterol Calculated 146(H) <100 mg/dL [facility] Comment:Desirable LDL: less than 100 mg/dLNear Optimal/Above Optimal LDL: 110- 129 mg/dLBorderline High LDL: 130-159 mg/dLHigh LDL: 160-189 mg/dLVery High LDL: greater than or equal to 190 mg/dL HDL Cholesterol 56 >40 mg/dL [facility] Comment:Desirable HDL: great er than 40 mg/dL Note: This HDL assay may give artificially low results in patients with liver disease. Blood Venous blood specimen / Unknown 01/06/2025 8:44 AM EDT 01/06/2025 11:02 AM EDT us Dale Batres MD LAB BLOOD ORDERABLES Final Resul t Performing Organization Address [facility] de Phone Number [facility] [address] [place] [phone] * (ABNORMAL) Basic Metabolic Panel (01/06/2025 8:44 AM EDT) Sodium 140 135 - 145 mmol/L [facility] Potassium 4.1 3.3 - 5.1 mmol/L [facility] Chloride 108 96 - 108 mmol/L [facility] Carbon Dioxide 27 22 - 29 mmol/L [facility] Anion Gap 9(L) 12 - 20 [facility] Urea Nitrogen (BUN) 18(H) 9 - 16 mg/dL [facility] Creatinine, Serum 0.72 0.5 - 1.4 mg/dL [facility] Estimated Glomerular Filt Rate >60 [facility] Comment:Chronic Kidney Disea se: Estimated GFR < 60 mL/min/1.75l8Hkbgta Kidney Disease: Estimated GFR < 15 mL/min/1.73m2 Glucose 88 60 - 115 mg/dL [facility] Calcium 9.2 8.4 - 10.2 mg/dL [facility] Blood Venous blood specimen / Unknown 01/06/2025 8:44 AM EDT 01/06/2025 11:02 AM EDT us Dale Batres MD LAB BLOOD ORDERABLES Final Resul t Performing Organization Address [facility] Co de Phone Number [facility] [address] [place] [phone] * PAP/HPV (11/20/2023 11:02 AM EST) [facility] Provider HEALTH MAINTENANCE Final Result * [...] a test for HCV RNA (test code 13583) is suggested. ?? For additional information please refer to http://Gobble.Clever Machine/faq/NEL14l6 (This link is being provided for informational/ educational purposes only.) ?? 11/09/2020 9:53 AM EST Dale Name HISTORICAL/NON ORDERABLE LABS Fi nal Result [facility] [address] * HIV 1/2 ANTIGEN/ANTIBODY,FOURTH GENERATION W/RFL [...] ? For additional information please refer to http://Gobble.Clever Machine/faq/PMY721 (This link is being provided for informational/ educational purposes only.) ? The performance of this assay has not been clinically validated in patients less than 2 years old. ?? 11/09/2020 9:53 AM EST us Dale Batres MD LAB BLOOD ORDERABLES Final Resul t [facility] [address] from Last 3 Months or Most Recently Relevant to Health Maintenance Insurance [employer] ONE CARE < 65 CCA ONE CARE < 65 Care Teams Hot Knife Foxing Cutter Relationship Specialty Start Date End Date Name, MD Dale [address] [place] [address] PCP - General Family Medicine 09/24/18
--- OUTSIDE RECORDS SUMMARY | 2025-02-12 10:04 | XMS_ITS | Encounter Summary ---
Author Organization [employer] Address [address] [place] [address] 7 [place] [address] Care Team Providers Care Sr Account Executive Name Role Phone Name, Dale SHELBY Primary Care Provider [phone] Reason for Visit * Reason Comments Med Refill Encounter Details Date Type Department Care Team (Late st Contact Info) Description 02/08/2023 Refill [facility]INE [address] [place], [place] [phone] Name, MD Dale [address] [place], [place] [phone] Spina bifida occulta Social History Tobacco Use [...] occulta documented in this encounter Care Teams Sr Account Executive Relationship Specialty Start Date End Date Name, MD Dale [address] [place] [address] PCP - General Family Medicine 09/24/18 documented as of this encounter
--- OUTSIDE RECORDS SUMMARY | 2025-02-12 10:04 | XMS_ITS | Referral Summary ---
Author Organization [facility] Address [address] [place] [address] Care Team Providers Care Speech Language Pathologist Assistant Name Role Phone Name, Dale Primary Care Provider [phone] Allergies Active Allergy Reactions Criticality Noted Date [...] 6:22 AM 06/27/2018 11:44 AM Care Teams Speech Language Pathologist Assistant Relationship Specialty Start Date End Date Name, Dale [address] [place] [address] PCP - General 04/12/17
--- OUTSIDE RECORDS SUMMARY | 2025-02-12 10:04 | XMS_ITS | Clinical Summary ---
Author Organization [facility] lin Address [address] [place] [address] Care Team Providers Care Yard Inspector Name Role Phone Unavailable Primary Care [...] Adults 18 yrs or above (or HM Modifier)([facility]) 1974 Hepatitis C Virus Infection in Adolescents and Adults: Screening (or Modifier) ([facility]) 1992 [facility] Screening Reminder: Mariah yoder for all adults ([facility]) 1992 Tobacco Smoking Cessation: i n Adults excluding Women: Behavioral and Pharmacotherapy Interventions ([facility]) 1992 DTaP/Tdap/Td Vaccines ([facility]) (1 - Tdap) 1993 Cervical Cancer Screenin 1-65 yrs of age (or Modifier) 1995 Cervical Cancer Screening: P ap every 3 yrs pts age 21-65 1995 Cervical Cancer: Pap Screeni ng with Modifier timing ([facility]) 1995 Cervical Cancer: hrHPV alone or with cotesting Pap for Pts 30-65yrs screening every 5yrs ([facility]) 1995 Colorectal Cancer Screening 45 -75 Yrs (or HM Modifier ) 2019 Colorectal Cancer: FLEXIBLE SIGMOIDOSCOPY Screening every 5 yrs 2019 Colorectal Cancer: Fecal Imm unochemical Test (FIT) Annually [facility] 2019 Colorectal Cancer: High-sens itivity gFOBT Screening Annually [facility] 2019 Colorectal Cancer: Stool Col oguard Screening every 3 yrs 2019 Colorectal Cancer:CT Colonography Screening every 5 yr s 2019 zzRETIRED Lipid Screening: E very 5 yrs for Women aged 45+ (or HM Modifier) ([facility]) 2020 COVID-19 Vaccine Screening: Initial Series and Booster Status ([facility]) (2023- season) 2024 Breast Cancer: Screening Mariah ually age 50-74 yrs (or HM Modifier)([facility]) 2024 Pneumococcal Vaccination Scr eening: Patients 50+ yrs of age ([facility]) (1 of 1 - PCV) 2024 Zoster/Shingles Vaccine Seri es Screening: Adults aged 18+ yrs (or HM Modifiers)([facility]) (1 of 2) 2024 Flu Vaccination: Yearly for ages 18mos through 64 years (or Modifier)([facility]) 04/24/2025 Medical Devices Not on file
--- OUTSIDE RECORDS SUMMARY | 2025-02-12 10:04 | XMS_ITS | Encounter Summary ---
Author Organization [employer] Address [address] [place] [address] 7 [place] [address] Care Team Providers Care Runstitching Machine Operator Name Role Phone Name, Dale SHELBY Primary Care Provider [phone] Reason for Visit * Reason Onset Date Comments Appointment Request 01/17/2023 Derm Follow Up Encounter Details Date Type Department Care Team ([facility] st Contact Info) Description 01/17/2023 Telephone [facility] MEDICINE [address] [place], [place] [phone] Name, MD Dale [address] [place], [place] [phone] Appointment Request (Derm Follow Up) Social History [...] to Cera Ve cream results. *Patient speaks Belarusian documented in this encounter Plan of Treatment Not on file documented as of this encounter Visit Diagnoses Not on filedocumented in this encounter Care Teams Runstitching Machine Operator Relationship Specialty Start Date End Date Name, MD Dale [address] [place] [address] PCP - General Family Medicine 09/24/18 documented as of this encounter
--- OUTSIDE RECORDS SUMMARY | 2025-02-12 10:04 | XMS_ITS | Encounter Summary ---
Author Organization [facility] Address [address] [place] [address] Care Team Providers Care Caustic Room Operator Name Role Phone Name, Dale Primary Care Provider [phone] Encounter Details Date Type Department Care Team (Late st Contact Info) Description 08/12/2022 Orders Only [facility] XRay [address] [place], [place] [phone] Nidhi Christian MD [address] [place], [place] [phone] Social History Tobacco Use Types Packs/Day Years [...] on filedocumented in this encounter Care Teams Caustic Room Operator Relationship Specialty Start Date End Date Name, Dale [address] [place] [phone] PCP - General 04/12/17 documented as of this encounter
--- OUTSIDE RECORDS SUMMARY | 2025-02-12 10:04 | XMS_ITS | Encounter Summary ---
Author Organization [employer] Address [address] [place] [address] 7 [place] [address] Care Team Providers Care Chair Pad Maker Name Role Phone Name, Dale SHELBY Primary Care Provider [phone] Encounter Details Date Type Department Care Team (Latest Contact Info) Description 10/09/2018 Abstract [facility] CONVERSIONS Dental, Provider, DDS Social History Tobacco [...] on filedocumented in this encounter Care Teams Chair Pad Maker Relationship Specialty Start Date End Date Name, MD Dale [address] [place] [phone] PCP - General Family Medicine 09/24/18 documented as of this encounter
--- OUTSIDE RECORDS SUMMARY | 2025-02-12 10:04 | XMS_ITS | Encounter Summary ---
Author Organization [employer] Address [address] [facility] 7t [place] [address] Care Team Providers Care Presser And Shaper Knitted Goods Name Role Phone Name, Dale SHELBY Primary Care Provider [phone] Encounter Details Date Type Department Care Team ([facility] st Contact Info) Description 07/09/2024 Orders Only [facility] MEDICINE [address] [place] [address] Provider, MD Jon Social History Tobacco Use [...] documented as of this encounter Care Teams Presser And Shaper Knitted Goods Relationship Specialty Start Date End Date Name, MD Dale [address] [place] [address] PCP - General Family Medicine 09/24/18 documented as of this encounter
--- OUTSIDE RECORDS SUMMARY | 2025-02-12 10:04 | XMS_ITS | Encounter Summary ---
Author Organization [employer] Address [address] [place] [address] [address] [place] [address] Care Team Providers Care Purchase Price Analyst Name Role Phone NameDale MD Primary Care Provider Encounter Details Date Type Department Care Team ([facility] st Contact Info) Description 02/23/2023 Abstract [facility] MEDICINE [address] [place], [place] [phone] NameDale MD [address] [place] [address] Social History Tobacco Use Types Packs/Day Years [...] on filedocumented in this encounter Care Teams Purchase Price Analyst Relationship Specialty Start Date End Date NameDale MD [address] [place] [address] PCP - General Family Medicine 09/24/18 documented as of this encounter
--- OUTSIDE RECORDS SUMMARY | 2025-02-12 10:04 | XMS_ITS | Encounter Summary ---
Author Organization [employer] Address [address] [place] [address] 7 [place] [address] Care Team Providers Care Perinatal Social Worker Name Role Phone Name, Dale SHELBY Primary Care Provider Reason for Visit * Reason Onset Date Comments Results 12/25/2023 Encounter Details Date Type Department Care Team (Late st Contact Info) Description 12/25/2023 Telephone [facility] MEDICINE [address] [place], [place] [phone] Name, MD Dale [address] [place], [place] [phone] Results Social History Tobacco Use Types Packs/Day [...] documented as of this encounter Care Teams Perinatal Social Worker Relationship Specialty Start Date End Date Name, MD Dale [address] [place] [address] PCP - General Family Medicine 09/24/18 documented as of this encounter
--- OUTSIDE RECORDS SUMMARY | 2025-02-12 10:04 | XMS_ITS | Clinical Summary ---
Author Organization [facility] Address [address] [place] [address] Care Team Providers Care Business Law Instructor Name Role Phone Name, Dale Primary Care Provider [phone] Allergies Active Allergy Reactions Criticality Noted Date [...] series) 2049 HIV Screening Completed 11/09/2020 Insurance [facility] [place] [id number] Advance Directives * Full Code (Latest Code Status on File) Date Activated Date Inactivated Comments 03/25/2020 6:05 AM 03/25/2020 1:50 PM * Full Code Date Activated Date Inactivated Comments 06/27/2018 6:22 AM 06/27/2018 11:44 AM Care Teams Business Law Instructor Relationship Specialty Start Date End Date NameDale [address] [place] [address] PCP - General 04/12/17
--- OUTSIDE RECORDS SUMMARY | 2025-02-12 10:04 | XMS_ITS | Clinical Summary ---
Author Organization [address] 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 Low back pain 04/20/2014 Urge incontinence 01/20/2013 Encounters Date Type Department Care Team Description 01/08/2025 8:30 AM EDT - 01/08/2025 11:59 PM EDT Hospital Encounter Radiology Department - [address] [phone] Screening breast examination Discharge Disposition: Home or Self Care 12/19/2024 8:45 AM EDT Office Visit Obstetrics & Gynecology - [address] [phone] Juliet Vance CNM Encounter for well woman exam with routine gynecological exam (Primary Dx); Screening breast examination; Acute vaginitis from Last 3 Months Immunizations Name Administration Dates Next Due Influenza trivalent, with pr eservative (Fluzone; Afluria) 6mo and older 08/16/2015,08/07/2014,07/02/2013 Influenza, Unspecified 07/04/2021 PPD Test 08/16/2015 [place] SARS-CoV-2 COVID-19, mRNA, LNP-S, preservative free 07/18/2021,06/27/2021 [...] is recommended in 1 year. MAMMO LOCATION: [facility], [address] [place] [address], [phone], . -------- FINAL REPORT -------- Dictated By: Elizabeth Johnson Dictated Date: 01/08/2025 16:06 ET Assigned Physician: Elizabeth Johnson Reviewed and Electronically Signed By: Elizabeth Johnson Signed Date: 01/08/2025 16:07 ET Workstation ID: [id number] Transcribed By: Self Edit Transcribed Date: 01/08/2025 [...] is recommended in 1 year. MAMMO LOCATION: [facility], [address] [place] [address], [id number], . -------- FINAL REPORT -------- Dictated By: Elizabeth Johnson Dictated Date: 01/08/2025 16:06 ET Assigned Physician: Elizabeth Johnson Reviewed and Electronically Signed By: Elizabeth Johnson Signed Date: 01/08/2025 16:07 ET Workstation ID: [id number] Transcribed By: Self Edit Transcribed Date: 01/08/2025 [...] Final Result [facility] [address] [place] [address], [place] [phone] * Chlamydia trachomatis and Neisseria gonorrhoeae molecular [...] 9:07 AM EDT 12/19/2024 3:59 PM EDT [facility] MICROBIOLOGY - GENERAL OR DERABLES Final Result [facility] [address] [place] [address], [place] [phone] * (ABNORMAL) Wet prep, genital (12/19/2024 9:07 [...] 9:07 AM EDT 12/19/2024 3:58 PM EDT [facility] MICROBIOLOGY - GENERAL OR DERABLES Final Result [facility] [address] [place] [address], [place] [phone] * Cervical Cancer Screening: HPV (11/20/2023) Pathologist [facility] Cervical Cancer Screening: HPV negative, abstracted Historical Provider HEALTH MAINTENANCE Final Result * Hepatitis C Screening (11/27/2022) Pathologist [facility] Hepatitis C Screening abstracted Historical [...] [facility] MEDICARE Member Subscriber Plan / Payer (Ef fective 2019-Present) Name:Esperanza Melgar Relation to Subscriber:Self Name:Esperanza Melgar Payer ID:[id number] Group ID:[id number] Type:Not on file Address: [place] [address] [place] [id number] Care Teams Medical Microbiologist Relationship Specialty Start Date End Date Name, MD Dale [address] [place], [place] PCP - General Internal Medicine 07/29/17
[2025-02-12 10:10] LABS: MANUAL DIFF FLAG NO
[2025-02-12 10:51] LABS: Basophils Absolute Auto 0.1 X10*3/uL (0.0-0.2); Basophils Percent Auto 0.9 % (0-2); Eosinophils Absolute Auto 0.3 X10*3/uL (0.0-0.4); Eosinophils Percent Auto 5.1 % (0-4); Hematocrit 41.6 % (37.0-47.0); Hemoglobin 13.9 g/dl (12.0-16.0); Imm Gran Abs Auto 0.01 X10*3/uL (0.00-0.03); Imm Gran Pct Auto 0.2 % (0.0-0.4); Lymphocytes Absolute Auto 1.5 X10*3/uL (1.2-4.9); Lymphocytes Percent Auto 27.3 % (20-40); Mean Corpuscular HGB Conc 33.4 g/dl (31.0-35.0); Mean Corpuscular Hemoglobin 31.7 pg (27.0-33.0); Mean Corpuscular Volume 94.8 fL (80.0-98.0); Monocytes Absolute Auto 0.5 X10*3/uL (0.1-1.2); Monocytes Percent Auto 9.2 % (2-11); Neutrophils Absolute Auto 3.1 x10*3/uL (2.0-8.3); Neutrophils Percent Auto 57.3 % (45-73); Platelet Count 243 X10*3/uL (160-400); Red Blood Count 4.39 X10*6/uL (4.20-5.50); White Blood Count 5.5 X10*3/uL (4.8-10.8)
[2025-02-12 11:30] LABS: Erythrocyte Sedimentation Rate 14 MM/HR (0-20)
[2025-02-12 12:37] LABS: Alanine Aminotransferase 18 U/L (0-31); Albumin Level 4.1 g/dL (3.5-5.0); Alkaline Phosphatase 76 U/L (39-117); Anion Gap 10 (12-20); Aspartate Amino Transferase 25 U/L (5-31); Bilirubin Total 1.5 mg/dL (0.0-1.0); Blood Urea Nitrogen 16 mg/dL (9-16); Calcium 9.5 mg/dL (8.4-10.2); Carbon Dioxide 27 mmol/L (22-29); Chloride 107 mmol/L (96-108); Estimated Glomerular Filt Rate > 60; Glucose Fasting 88 mg/dL (60-99); Potassium 4.3 mmol/L (3.3-5.1); Sodium 140 mmol/L (135-145)
[2025-02-13 05:04] LABS: CRP High Sensitivity 5.5 mg/L
== END 2025-02-12 09:07 | disposition home or self-care (01) ==
LOC: HO.LAB 09:06
PROVIDERS: PCP Internal Medicine Geriatric Medicine; Visit Provider Nurse Practitioner Family
DX: R93.7 Abnormal findings on diagnostic imaging of other parts of musculoskeletal system (principal); M89.9 Disorder of bone, unspecified; G03.9 Meningitis, unspecified; M54.16 Radiculopathy, lumbar region; Q76.0 Spina bifida occulta; Q06.8 Other specified congenital malformations of spinal cord; G96.191 Perineural cyst
CPT/HCPCS: 36415; 80053; 85025; 85652; 86141; 87040; 99212

== ENCOUNTER 2025-02-19 09:24 | Outpatient (AMB) | payer OTHER, SELFPAY ==
--- NOTE | 2025-02-19 09:35 | A.SPINEOV_ITS ---
Intake Visit Reasons: LBP Intake Note: Ms. Monique is here today c/o low back pain. MRI done @ [facility] [place]. Switchboard Operator Helper Required: Yes Switchboard Operator Helper Name: VESTA Moy Allergies oxycodone [OXYCODONE] Allergy (Severe, Verified 02/12/25 09:11) CP/DIZZINESS/VOMITING Assessment & Plan Assessment & Plan (1) Spondylolisthesis at L5-S1 level: Code(s): M43.17 - Spondylolisthesis, lumbosacral region Category: Medical Plan Dear Kamila, Thank you for referring Esperanza to our office today. She is a pleasant, complicated, 49-year-old female who comes in today for evaluation of severe low back pain. She reports that this has been ongoing since about 2013. She denies any known inciting incident for her pain. She reports that her primary concern is severe axial low back pain, but she also has a radicular component of pain shooting down her left lower extremity. When describing the pain that shoots down her left lower extremity she runs her hand down the posterior aspect of her left leg terminating near the foot. In addition to this she reports some occasional burning pains over her left foot, and some intermittent numbness of her right big toe. She reports that she has a history of a tethered spinal cord, which was found on MRI imaging in 2013 when she began reporting some back pain concerns. She reports that her pain is worse when lying down at night, and better when sitting down resting. She states that her pain is getting to the point where it is so severe that she cannot sleep and awakens multiple times per night in pain. She is currently taking meloxicam and tizanidine in an effort to help mitigate the pain, but reports very little relief from these medications. She has been to physical therapy in the past, and attempted it several times but reports that she experiences severe back pain when attempting to engage with PT, and most recently was discharged from physical therapy and had to spend 3 days in bed due to severe pain. In addition to this she has attempted cortisone injections with our colleagues at [facility] in the past, but also reports that she had no relief from these. She did at 1 point attempt lumbar spine surgery with Dr. Driscoll at [facility], who was unable to complete the surgery and told her ?your spinal cord is too tangled up.? She does also have a pertinent past medical history of a neurogenic bladder, and states she gets occasional Botox injections into her bladder for periods of incontinence. She reports this also has been occurring since 2013. PMH: Tubular adenoma, tethered spinal cord, spina bifida occulta, sacroiliac joint dysfunction of left side, venous insufficiency, varicose veins of left leg. Social hx: Patient does not smoke, reports no substance use. Medications: See [employer] and [employer] list. Patient is not on any anticoagulants, cardiac medications, pulmonary medications, or sugar control medications. Allergies: Oxycodone Physical exam: The patient has 5/5 strength in her upper and lower extremities but does elicit pain to full strength testing of the left iliopsoas. She reports hypoesthesia to light touch over the left posterior gastrocnemius compared to the right. She ambulates with a slightly antalgic gait favoring the right side. She does not use any assistive devices to ambulate. She has a surgical scar overlying the lumbar spine. She has small laproscopic scars in the RUQ of the abdomen, and a vertical incision scar from her about 3-4 cm below the umbilicus. (-) Pinto's. No clonus. (-) Bilateral straight leg raise. 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 There is notable T2 signal change by in the vertebral body of L1-2, possibly representing a small syrinx. There is a non-specific lesion noted in the vetebral body of L2. Severe degenerative disc disease noted at L5-S1 with a grade 2 spondylolisthesis at this level. Standing X-rays completed here at [facility] [place] shows accentuation of the grade 2 lithesis at L5-S1. Impression: Esperanza is a pleasant 49-year-old female comes in today for evaluation of chronic low back pain with intermittent left leg pain. She has a Hx of a tethered spinal cord, and intermittent incontinence which she was told is due to neurogenic bladder issues. In terms of her tethered spinal cord, and the clumping of nerve roots around L4-5, she has likely had this her entire life, and only recently in 2013 this was found when working up her back pain. The only real symptom of this I am able to find when questioning her is the neurogenic bladder issues, for which she gets occasional botox injections into the bladder. It is difficult to say without further studies what the lesion in the vertebral body of L2 is; it most closely represents a hemangioma, but other potential diagnoses cannot be ruled out. It seems like this is the first time it has been seen on imaging. Workup by oncology to rule out malignancy has already been ordered by her PCP per the patient. In terms of her severe low back pain; this is most likely related to the severe degenerative disc disease and grade 2 spondylolisthesis seen at L5-S1. Typically, this is something that Dr. Major would treat with a L5-S1 ALIF. I do not believe that her history of section in 2003 would disqualify her from this procedure, and her vasculature looks good on MRI imaging. The main rate limiting factor for ALIF would be the orientation of the disc space, as it points downward at a fairly steep angle. We extensively discussed the possibility of lumbar fusion L5-S1 during this enc ounter today. I utilized the spine models in office to explain this to her to the best of my ability, and answered all questions that she had. She understands that given the abnormal anatomy in the lumbar spine, this may not be a possibility, however conceptually this seems like the most appropriate way to treat this, given that there would be very minimal disruption to the tethered cord / thecal sac at this level. Again, this is a fairly complicated case, and I will need to discuss further with both the attending neurosurgeon Dr. Major, and the vascular approach surgeon Dr. Chua, as they will ultimately make a decision regarding this patient's care. Thank you for allowing us to care for your patient. The total time spent with this visit with this patient was 65 minutes reviewing history, physical exam, MRI imaging review, and implementation of treatment plan or further diagnostic testing Eber Major MD,PhD [facility] Coding Level of Care Code New Pt Level 5 (26289) Diagnoses Spondylolisthesis at L5-S1 level M43.17
--- OUTSIDE RECORDS SUMMARY | 2025-02-19 09:46 | XMS_ITS | Encounter Summary ---
Author Organization [employer] Address [address] [place] [address] [address] [place] [address] Care Team Providers Care Template Clerk Name Role Phone Name, Dale SHELBY Primary Care Provider [phone] Reason for Visit * Reason Comments Med Refill Encounter Details Date Type Department Care Team ([facility] st Contact Info) Description 01/22/2024 Refill [facility] MEDICINE [address] [place], [place] [phone] [facility] [address] [place], [place] [phone] Impacted cerumen of right ear Social History [...] documented as of this encounter Care Teams Template Clerk Relationship Specialty Start Date End Date Name, MD Dale [address] [place] [address] PCP - General Family Medicine 09/24/18 documented as of this encounter
== END 2025-02-19 10:09 | disposition home or self-care (01) ==
LOC: HO.HNS 09:25
PROVIDERS: PCP Internal Medicine Geriatric Medicine; Referring Provider Nurse Practitioner Family; Visit Provider Physician Assistant
DX: M43.17 Spondylolisthesis, lumbosacral region (principal)
CPT/HCPCS: 99205

== ENCOUNTER → 2025-02-19 09:24 | Outpatient (BNVA) | payer OTHER, SELFPAY | PROVIDERS: PCP Internal Medicine Geriatric Medicine; Referring Provider Nurse Practitioner Family; Visit Provider Physician Assistant | DX: M43.17 Spondylolisthesis, lumbosacral region (principal) | CPT/HCPCS: 99202 ==

== ENCOUNTER 2025-02-25 15:09 | Outpatient (AMB) | payer OTHER, SELFPAY ==
--- NOTE | 2025-02-25 15:08 | A.OFFVIS_ITS ---
Vital Signs 02/25/25 15:12 Height 5 ft Weight 203 lb BMI 39.6 Pulse 73 Pulse Source Pulse Oximeter Pulse Oximetry (%) 95 Oxygen Delivery Method Room Air Intake Visit Reasons: Meningitis Direct Care Provider Required: Yes Direct Care Provider Services: Direct Care Provider Present Direct Care Provider Name: Huong Hunter CMA Allergies oxycodone [OXYCODONE] Allergy (Severe, Verified 02/25/25 15:12) CP/DIZZINESS/VOMITING HPI HPI Meningitis: Details: She has chronic back pain and referred from Pain Management due to abnormal MRI. She has had surgery 2014 lower back for pain. She denies any infections and healed well. She has MRI showing postop changes L4-L5 and clumped areas arachnoiditis. She has no fever or chills. [facility] Medical History Family history of colon cancer in father NSAID long-term use Syncope Obesity (BMI 30-39.9) Osteoarthritis of lumbar spine Urinary incontinence Chronic back pain Venous insufficiency Varicose vein of leg Tubular adenoma Neurogenic bladder disorder Spina bifida occulta Surgical History H/O colonoscopy History of section History of tubal ligation History of cholecystectomy Social History Patient Tobacco Use Status: Never used Tobacco Review of Systems Const All systems reviewed & are unremarkable except as noted in HPI and below Physical Exam Vital Signs: Last Vital Signs Pulse 73 02/25/25 15:12 Pulse Ox 95 02/25/25 15:12 Oxygen Delivery Method Room Air 02/25/25 15:12 BMI result Body Mass Index 39.6 Const General: cooperative Orientation/consciousness: patient oriented x3 HEENT Head: Yes normal to inspection Mouth: Normal oral and palatal mucosa present Eyes General: appearance normal, both eyes and all related structures Pupils: Equal, round and reactive pupils present Resp Effort & Inspection: normal respiratory effort Cardio Rate: regular rate Rhythm: regular rhythm GI Palpation (GI): Soft to palpation and nontender General: Yes no CVA tenderness Back/Spine/Pelvis Back: no CVA tenderness Skin Other: well healed area back General skin exam: no rashes or lesions noted Neuro General: patient oriented x3 Cranial nerves: Yes CN's II-XII intact bilaterally and Yes Equal, round and reactive pupils present Extrem General: Yes normal to inspection Psych Appearance: grossly normal Assessment & Plan Assessment & Plan (1) Spondylolisthesis at L5-S1 level: Comment: I do not see any signs or symptoms of infection at this time Code(s): M43.17 - Spondylolisthesis, lumbosacral region Category: Medical Plan: Would follow Neurosurgery back pain. Probably chronic changes back. (2) Lesion of bone of lumbosacral spine: Code(s): M89.9 - Disorder of bone, unspecified Category: Medical Plan: na (3) Abnormal MRI, lumbar spine: Code(s): R93.7 - Abnormal findings on diagnostic imaging of other parts of musculoskeletal system Category: Medical Plan: na Coding Level of Care Code New Pt Level 3 (73555) Diagnoses Spondylolisthesis at L5-S1 level M43.17 Lesion of bone of lumbosacral spine M89.9 Abnormal MRI, lumbar spine R93.7
[2025-02-25 15:12] VITALS: PULSE 73; O2SAT 95; BMI 39.6
--- OUTSIDE RECORDS SUMMARY | 2025-02-25 15:18 | XMS_ITS | Encounter Summary ---
Author Organization [employer] Address [address] [place] [address] [address] [place] [address] Care Team Providers Care Transplant Registered Nurse Name Role Phone Name, Dale SHELBY Primary Care Provider [phone] Reason for Visit * Reason Comments Med Refill Encounter Details Date Type Department Care Team ([facility] st Contact Info) Description 01/22/2024 Refill [facility] MEDICINE [address] [place], [place] [phone] [facility] [address] [place], [place] [phone] Impacted cerumen of right ear Social History [...] documented as of this encounter Care Teams Transplant Registered Nurse Relationship Specialty Start Date End Date Name, MD Dale [address] [place] [address] PCP - General Family Medicine 09/24/18 documented as of this encounter
== END 2025-02-25 16:18 | disposition home or self-care (01) ==
LOC: HO.HID 15:09
PROVIDERS: PCP Internal Medicine Geriatric Medicine; Visit Provider Internal Medicine
DX: M43.17 Spondylolisthesis, lumbosacral region (principal); M89.9 Disorder of bone, unspecified; R93.7 Abnormal findings on diagnostic imaging of other parts of musculoskeletal system
CPT/HCPCS: 99203

== ENCOUNTER → 2025-02-25 15:09 | Outpatient (BNVA) | payer OTHER, SELFPAY | PROVIDERS: PCP Internal Medicine Geriatric Medicine; Visit Provider Internal Medicine | DX: M43.17 Spondylolisthesis, lumbosacral region (principal); M89.9 Disorder of bone, unspecified; R93.7 Abnormal findings on diagnostic imaging of other parts of musculoskeletal system | CPT/HCPCS: 99202 ==

== ENCOUNTER 2025-07-21 09:04 | Outpatient (RCR) | payer OTHER, SELFPAY | END 2025-07-27 15:14 | disposition home or self-care (01) | LOC: HO.PT 09:04 | PROVIDERS: PCP Internal Medicine Geriatric Medicine; Visit Provider Neurological Surgery | DX: M54.50 Low back pain, unspecified (principal); G89.29 Other chronic pain | CPT/HCPCS: 97110; 97112; 97161; 97530 ==